=== PATIENT | male | born 1980 | race Caucasian/White ===

== ENCOUNTER 2016-07-18 20:57 | Emergency (ER) | payer MEDICARE ==
[2016-07-18] MEDS ORDERED: NS 0.9% 1000 ML* 1,000 ML IV ONE (21:48)
[2016-07-18 21:49] LABS: Hematocrit 35 % (42-52); Hemoglobin 11.1 g/dl (14.0-18.0); Mean Corpuscular HGB Conc 32 g/dl (31-36); Mean Corpuscular Hemoglobin 22 pg (27-31); Mean Corpuscular Volume 68 fL (80-94); Mean Platelet Volume 9 um3 (7.4-10.4); Red Blood Count 5.08 10^6/ul (4.0-5.4); Red Cell Distribution Width 17 % (10.5-15); White Blood Count 6.9 10^3/ul (3.5-10.8)
[2016-07-18 21:51] LABS: Add Diff/Slide Review? Slide Review Added; Comments Flag Yes
[2016-07-18 22:04] LABS: Albumin 4.2 g/dL (3.2-5.2); Calcium 9.4 mg/dL (8.6-10.3); EGFR African American 140.7 (>60); EGFR Non-African American 109.4 (>60); Globulin 3.2 g/dL (2-4); Potassium 3.8 mmol/L (3.5-5.0); Total Bilirubin 0.3 mg/dL (0.2-1.0); Total Protein 7.4 g/dL (6.4-8.9)
[2016-07-18 22:43] VITALS: BP 123/79
--- NOTE | 2016-07-18 23:02 | ED ---
Mata Fox Rebecca, scribed for Marshall Armas MD on 07/18/16 at 2256 . Complex/Multi-Sys Presentation - HPI Summary HPI Summary: Pt is a 35 y/o M who presents to ED c/o generalized weakness and fatigue. Sx began gradually 3 days ago and have been constant and worsening since onset. Additionally c/o SOB characterized as dyspnea at exertion and suprapubic abd pain with bilateral radiation into the lower extremities. Pain is dull and aggravated and alleviated by nothing. Denies fever, cough, V/D. PMHx anemia ( receives transfusions every 2-3 months). Last transfusion was in [place] in March (4 months ago). Moved to [facility] 4 days ago, does not have a PCP, GI, or wire frame dipper. - History Of Current Complaint Chief Complaint: EDDizziness Time Seen by Provider: 07/18/16 21:14 Hx Obtained From: Patient Onset/Duration: Gradual Onset, Lasting Days - 3 days, Still Present Timing: Constant Severity Currently: Mild Severity Initially: Mild Location: Pain At: - suprapubic, Radiates To: - bilateral LE Character: Dull Aggravating Factor(s): Nothing Alleviating Factor(s): Nothing Associated Signs And Symptoms: Positive: Weakness - generalized, SOB, Other - Fatigue. Negative: Cough, Vomiting, Diarrhea, Fever - Allergies/Home Medications Allergies/Adverse Reactions: Allergies Allergy/AdvReac Type Severity Reaction Status Date / Time Amoxicillin Allergy Rash Verified 07/18/16 21:08 PMH/Surg Hx/FS Hx/Imm Hx Endocrine/Hematology History: Reports: Hx Anemia Cardiovascular History: Reports: Hx Hypertension GI History: Reports: Hx Gastroesophageal Reflux Disease Psychiatric History: Reports: Hx Panic Disorder, Hx Bipolar Disorder - Immunization History Date of Tetanus Vaccine: utd Infectious Disease History: No Infectious Disease History: Denies: Traveled Outside the [place] in Last 30 Days - Family History Known Family History: Positive: Hypertension - Social History Alcohol Use: None Substance Use Type: Reports: None Smoking Status (MU): Never Smoked Tobacco Review of Systems Positive: Fatigue, Other - Generalized weakness. Negative: Fever Positive: Shortness Of Breath - dyspnea at exertion. Negative: Cough Positive: Abdominal Pain - suprapubic with radiation bilaterally to LE. Negative: Vomiting, Diarrhea All Other Systems Reviewed And Are Negative: Yes Physical Exam - Summary Physical Exam Summary: General: Comfortable, pleasant, alert HEENT: Moist mucosa, PERRL Neck: soft, supple, no adenopathy, no edema Heart: S1, S2, RRR, no murmurs, rubs, or gallops Lungs: Clear to auscultation, breathing comfortable, no wheezes or rales Abdominal: Soft, flat, nontender Extremities: No edema, no calf tenderness Neuro: Alert and oriented x 3 Psych: Logical, coherent Triage Information Reviewed: Yes Vital Signs On Initial Exam: Initial Vitals Temp Pulse Resp BP Pulse Ox 97.7 F 99 16 149/84 100 07/18/16 21:00 07/18/16 21:00 07/18/16 21:00 07/18/16 21:00 07/18/16 21:00 Vital Signs Reviewed: Yes - Elif Coma Scale Coma Scale Total: 15 Diagnostics - Vital Signs Vital Signs Temp Pulse Resp BP Pulse Ox 07/18/16 22:30 75 15 123/79 98 07/18/16 22:00 80 11 126/79 96 07/18/16 21:30 88 11 131/82 97 07/18/16 21:22 87 9 98 07/18/16 21:20 123/83 07/18/16 21:00 97.7 F 99 16 149/84 100 - Laboratory Lab Results: Lab Results 07/18/16 07/18/16 Range/Units 21:35 21:35 WBC 6.9 (3.5-10.8) 10^3/ul RBC 5.08 (4.0-5.4) 10^6/ul Hgb 11.1 L (14.0-18.0) g/dl Hct 35 L (42-52) % MCV 68 L (80-94) fL MCH 22 L (27-31) pg MCHC 32 (31-36) g/dl RDW 17 H (10.5-15) % Plt Count 368 (150-450) 10^3/ul MPV 9 (7.4-10.4) um3 Neut % (Auto) 55.7 (38-83) % Lymph % (Auto) 33.9 (25-47) % [place] % (Auto) 7.0 (1-9) % Eos % (Auto) 1.3 (0-6) % Baso % (Auto) 2.1 H (0-2) % Absolute Neuts (auto) 3.8 (1.5-7.7) 10^3/ul Absolute Lymphs (auto) 2.3 (1.0-4.8) 10^3/ul Absolute Monos (auto) 0.5 (0-0.8) 10^3/ul Absolute Eos (auto) 0.1 (0-0.6) 10^3/ul Absolute Basos (auto) 0.1 (0-0.2) 10^3/ul Absolute Nucleated RBC 0 10^3/ul Nucleated RBC % 0 Hem Pathologist Commnt Pending Sodium 138 (133-145) mmol/L Potassium 3.8 (3.5-5.0) mmol/L Chloride 105 (101-111) mmol/L Carbon Dioxide 26 (22-32) mmol/L Anion Gap 7 (2-11) mmol/L BUN 12 (6-24) mg/dL Creatinine 0.80 (0.67-1.17) mg/dL Est GFR ( Amer) 140.7 (>60) Est GFR (Non-Af Amer) 109.4 (>60) BUN/Creatinine Ratio 15.0 (8-20) Glucose 94 (70-100) mg/dL Calcium 9.4 (8.6-10.3) mg/dL Total Bilirubin 0.30 (0.2-1.0) mg/dL AST 9 L (13-39) U/L ALT 9 (7-52) U/L Alkaline Phosphatase 65 (34-104) U/L Total Protein 7.4 (6.4-8.9) g/dL Albumin 4.2 (3.2-5.2) g/dL Globulin 3.2 (2-4) g/dL Albumin/Globulin Ratio 1.3 (1-3) Result Diagrams: 07/18/16 21:35 07/18/16 21:35 Lab Statement: Any lab studies that have been ordered have been reviewed, and results considered in the medical decision making process. - EKG 2107 Cardiac Rate: NL - 90 bpm EKG Rhythm: Sinus Rhythm ST Segment: Normal Complex Multi-Symp Course/Dx Assessment/Plan: Hx of anemia. Essentially here to be checked for anemia again. He did have GI care at one point, they were worried about upper GI bleed. Today , displaying no signs or sx of that. He also has stable vitals upon my exam. His H&H is acceptable at . Most important thing we can do in this case is arrange for follow up. We will refer him to the referral center. Weve also considered sepsis and severe infection but there is no evidence of that as well. Viral illness is also a possibility. - Diagnoses Differential Diagnoses/HQI/PQRI: Cardiac Ischemia, Metabolic Abnormality, Sepsis , Urinary Tract Infection Provider Diagnoses: Weakness Discharge - Discharge Plan Condition: Good Disposition: HOME Patient Education Materials: Weakness (ED) Referrals: [facility] [facility] REFERRAL [Outside] The documentation as recorded by the Mata rucker Rebecca accurately reflects the service I personally performed and the decisions made by me, Marshall Armas MD.
== END 2016-07-18 23:00 | disposition home or self-care (01) ==
LOC: ED 20:57
DX: R53.1 Weakness (principal); R06.02 Shortness of breath; R53.83 Other fatigue; R10.9 Unspecified abdominal pain
CPT/HCPCS: 36415; 80053; 85025; 85060; 86703; 93005; 99282

== ENCOUNTER 2016-07-26 14:49 | Emergency (ER) | payer MEDICARE ==
[2016-07-26 15:40] VITALS: BP 159/85
[2016-07-26] MEDS ORDERED: Cyclobenzaprine TAB* 10 MG PO ONE (16:15)
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
== END 2016-07-26 16:31 | disposition home or self-care (01) ==
LOC: UCEAST 14:49
DX: S39.012A Strain of muscle, fascia and tendon of lower back, initial encounter (principal); W01.0XXA Fall on same level from slipping, tripping and stumbling without subsequent striking against object, initial encounter; Y93.02 Activity, running; Y92.828 Other wilderness area as the place of occurrence of the external cause; Z87.442 Personal history of urinary calculi; Z88.0 Allergy status to penicillin
CPT/HCPCS: 99212; A9270-GY; G0463

== ENCOUNTER 2016-08-11 15:52 | Emergency (ER) | payer MEDICARE ==
[2016-08-11 16:16] VITALS: BP 155/90
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
== END 2016-08-11 17:08 | disposition home or self-care (01) ==
LOC: UCEAST 15:52
DX: S39.012A Strain of muscle, fascia and tendon of lower back, initial encounter (principal); W19.XXXA Unspecified fall, initial encounter; Y93.23 Activity, snow (alpine) (downhill) skiing, snowboarding, sledding, tobogganing and snow tubing; Y92.9 Unspecified place or not applicable; Z88.1 Allergy status to other antibiotic agents; Z87.891 Personal history of nicotine dependence
CPT/HCPCS: 99212; G0463

== ENCOUNTER 2016-09-23 15:44 | Emergency (ER) | payer MEDICARE ==
[2016-09-23 15:57] VITALS: BP 139/93
--- NOTE | 2016-09-23 16:33 | UC ---
Knee Pain HPI - HPI Summary HPI Summary: The patient comes in today for: 1. Left knee pain: Onset: Yesterday. Palliative/provocative: Bending the knee makes it worse. He can bend it to 90 degrees. Quality: Dull ache at rest. With bending and with squatting down--sharp. Region: Left knee Severity: 6/10 at rest. Time: Constant. Associated symptoms: Event: He was stepping up on a deck from a lower step turning to this left. There was a sudden onset of pain. About this time, he fell off the deck. He got back up and started walking around. He felt OK walking around. Every time he would squat down, it hurt so bad, he had to grab the ground. He felt at times like that, that he did not have any strength in it. He states that there is a catching with movement. He did not strike his knee during the fall. Previous knee problems: None. Previous treatment: Tylenol. Disability: For agoraphobia and panic attacks. Patient states that he can't take NSAIDS due to him having severe and frequent esophageal bleeding. He states that he had to have 14 transfusions and he is supposed to see a barrel filler head in the near future. He drove to be seen here. * - History of Current Complaint Chief Complaint: UCLowerExtremity Stated Complaint: KNEE INJURY Time Seen by Provider: 09/23/16 16:25 Hx Obtained From: Patient - Allergies/Home Medications Allergies/Adverse Reactions: Allergies Allergy/AdvReac Type Severity Reaction Status Date / Time Amoxicillin Allergy Rash Verified 09/23/16 15:58 Home Medications: Home Medications Metoprolol Succinate XL TAB* [Toprol XL TAB*] 50 mg PO DAILY 09/23/16 [History Confirmed 09/23/16] PMH/Surg Hx/FS Hx/Imm Hx Previously Healthy: No - Esophageal bleeding. Endocrine History Of: Denies: Diabetes, Thyroid Disease, Hyperthyroidism, Hypothyroidism, Dyslipidemia Cardiovascular History Of: Reports: Hypertension Denies: Cardiac Disorders, Pacemaker/ICD, Myocardial Infarction, Congestive Heart Failure, Atrial Fibrillation, Deep Vein Thrombosis, Bleeding Disorders Respiratory History Of: Denies: COPD, Asthma - He states that he is on Toprol for his blood pressure. , Bronchitis, Pneumonia, Pulmonary Embolism GI/ History Of: Reports: Gastroesophageal Reflux, Ulcer - gi bleed, Gastrointestinal Bleed - He states that he has had esophageal bleeding from reflux., Kidney Stones Neurological History Of: Denies: TIA, CVA, Dementia, Seizures, Migraine Psychological History Of: Reports: Anxiety, Depression, Bipolar Disorder Cancer History Of: Denies: Lung Cancer, Colorectal Cancer, Breast Cancer, Prostate Cancer, Cervical Cancer Other History Of: Negative For: HIV, Hepatitis B, Hepatitis C, Anticoagulant Therapy - Surgical History Surgical History: Yes Surgery Procedure, Year, and Place: stent placement for kidney stones X2 - Family History Known Family History: Positive: Cardiac Disease, Hypertension Negative: Diabetes - Social History Occupation: Disabled - From anxiety /depression Lives: With Family Alcohol Use: None Substance Use Type: None Smoking Status (MU): Former Smoker Review of Systems Constitutional: Negative Skin: Negative Eyes: Negative ENT: Negative Respiratory: Negative Cardiovascular: Negative Gastrointestinal: Negative Genitourinary: Negative Musculoskeletal: Arthralgia, Myalgia All Other Systems Reviewed And Are Negative: Yes Physical Exam Triage Information Reviewed: Yes Appearance: Well-Nourished, Pain Distress - He has altered breathing--holding breaths and sighing at times. He holds his left leg straight. Vital Signs: Initial Vital Signs Temp 98.2 F 09/23/16 15:53 Pulse 74 09/23/16 15:53 Resp 18 09/23/16 15:53 BP 139/93 09/23/16 15:53 Pulse Ox 100 09/23/16 15:53 Vital Signs Reviewed: Yes Eyes: Positive: Conjunctiva Clear. Negative: Discharge ENT: Positive: Hearing grossly normal. Negative: Pharyngeal erythema, Nasal congestion, Nasal drainage, TM bulging, TM dull, TM red, Tonsillar swelling, Tonsillar exudate Dental: Negative: Gross Decay/Caries @, Dental Fracture @ Neck: Positive: Supple, Nontender, No Lymphadenopathy. Negative: Nuchal Rigidity Respiratory: Positive: Chest non-tender, Lungs clear, No respiratory distress, No accessory muscle use. Negative: Crackles, Wheezing Cardiovascular: Positive: RRR, No Murmur Abdomen Description: Positive: Nontender, No Organomegaly, Soft. Negative: Distended, Guarding Musculoskeletal: Positive: No Edema, ROM Limited @ - He is only able to flex his left knee to 90 degrees. He can fully extend it., Other: Neurological: Positive: Alert, Muscle Tone Normal Psychological: Positive: Age Appropriate Behavior, Consolable Skin: Negative: rashes, breakdown Diagnostics - Radiology No standard instances Xray Interpretation: No Acute Changes Radiology Interpretation Completed By: Radiologist Knee Pain Course/Dx - Course Course Of Treatment: Left knee pain, internal derangement--torn meniscus? - Differential Dx/Diagnosis Provider Diagnoses: Left knee pain, internal derangement--torn meniscus. Discharge - Discharge Plan Condition: Stable Disposition: HOME Patient Education Materials: Knee Pain (ED) Referrals: Jose Griffin MD [Primary Care Provider] - Erich Montoya MD [Medical Doctor] - As Soon As Possible (Please call the orthopedic surgeon as soon as you can for further evaluation and treatment)
--- NOTE | 2016-09-23 17:32 | RAD ---
HISTORY: Left knee pain after fall COMPARISONS: None VIEWS: 4, Frontal, lateral, axial, and oblique views of the left knee FINDINGS: BONE DENSITY: Normal. BONES: There is no displaced fracture. JOINTS: There is no arthropathy. There is no suprapatellar joint effusion or lipohemarthrosis. ALIGNMENT: There is no dislocation. SOFT TISSUES: Unremarkable. OTHER FINDINGS: None. IMPRESSION: NO ACUTE OSSEOUS INJURY. IF SYMPTOMS PERSIST, RECOMMEND REPEAT IMAGING.
== END 2016-09-23 17:55 | disposition home or self-care (01) ==
LOC: UCEAST 15:44
DX: M23.307 Other meniscus derangements, unspecified meniscus, left knee (principal); M25.562 Pain in left knee; Z88.3 Allergy status to other anti-infective agents; Z87.891 Personal history of nicotine dependence
CPT/HCPCS: 99212; G0463

== ENCOUNTER 2016-11-28 16:42 | Emergency (ER) | payer MEDICARE ==
[2016-11-28 16:49] VITALS: BP 122/75
--- NOTE | 2016-11-28 19:55 | UC ---
Throat Pain/Nasal Timothy HPI - HPI Summary HPI Summary: FOUR DAYS OF NASAL DRAINAGE SORE THROAT COUGH. YELLOW SPUTUM. LOW GRADE FEVER. - History of Current Complaint Chief Complaint: UCRespiratory Stated Complaint: COUGH Time Seen by Provider: 11/28/16 18:54 Hx Obtained From: Patient Onset/Duration: Gradual Onset, Lasting Days, Worse Since - DILY Severity: Moderate Pain Intensity: 2 Pain Scale Used: 0-10 Numeric Cough: Productive Associated Signs & Symptoms: Positive: Hoarseness, Sinus Discomfort, Nasal Discharge, Fever - Epiglottits Risk Factors Epiglottis Risk Factors: Negative - Allergies/Home Medications Allergies/Adverse Reactions: Allergies Allergy/AdvReac Type Severity Reaction Status Date / Time Amoxicillin Allergy Rash Verified 09/23/16 15:58 PMH/Surg Hx/FS Hx/Imm Hx Previously Healthy: Yes Other History Of: Negative For: HIV, Hepatitis B, Hepatitis C, Anticoagulant Therapy - Surgical History Surgical History: Yes Surgery Procedure, Year, and Place: stent placement for kidney stones X2 - Family History Known Family History: Positive: Cardiac Disease, Hypertension Negative: Diabetes - Social History Occupation: Employed Full-time Lives: With Family Alcohol Use: None Substance Use Type: None Smoking Status (MU): Former Smoker Review of Systems Constitutional: Fever, Chills Skin: Negative Eyes: Negative ENT: Sore Throat, Nasal Discharge Respiratory: Cough Cardiovascular: Negative Gastrointestinal: Negative Genitourinary: Negative Motor: Negative Neurovascular: Negative Musculoskeletal: Negative Neurological: Negative Psychological: Negative All Other Systems Reviewed And Are Negative: Yes Physical Exam Triage Information Reviewed: Yes Appearance: No Pain Distress, Well-Nourished, Ill-Appearing Vital Signs: Initial Vital Signs Temp 99.3 F 11/28/16 16:46 Pulse 75 11/28/16 16:46 Resp 18 11/28/16 16:46 BP 122/75 11/28/16 16:46 Pulse Ox 99 11/28/16 16:46 Vital Signs Reviewed: Yes Eye Exam: Normal ENT: Positive: Hearing grossly normal, Pharynx normal, Nasal congestion, TM bulging, TM dull Dental Exam: Normal Neck exam: Normal Neck: Positive: Supple, Nontender, No Lymphadenopathy Respiratory Exam: Other - COUGH Respiratory: Positive: Chest non-tender, Lungs clear, Normal breath sounds, No respiratory distress, No accessory muscle use Cardiovascular Exam: Normal Cardiovascular: Positive: RRR, No Murmur, Pulses Normal Abdominal Exam: Normal Musculoskeletal Exam: Normal Musculoskeletal: Positive: Strength Intact, ROM Intact Neurological Exam: Normal Psychological Exam: Normal Psychological: Positive: Normal Response To Family Skin Exam: Normal Throat Pain/Nasal Course/Dx - Differential Dx/Diagnosis Differential Diagnosis/HQI/PQRI: Influenza, Sinusitis, Tonsillitis, URI Provider Diagnoses: SINUSITIS Discharge - Discharge Plan Condition: Stable Disposition: HOME Prescriptions: Sulfamethox/Trimethoprim DS* [Bactrim DS 800/160 TAB*] 1 tab PO BID #20 tab Patient Education Materials: Sinusitis (ED) Ref[place]: [facility] [place]] Jose Griffin MD [Primary Care Provider] -
== END 2016-11-28 19:27 | disposition home or self-care (01) ==
LOC: UCEAST 16:42
DX: J32.9 Chronic sinusitis, unspecified (principal); Z87.891 Personal history of nicotine dependence
CPT/HCPCS: 99212; G0463

== ENCOUNTER 2016-12-24 23:44 | Emergency (ER) | payer MEDICARE ==
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
[2016-12-25] MEDS ORDERED: diPHENhydraMINE IV* 50 MG/ML 1 ml VIAL (BENADRYL) ONE (00:18)
[2016-12-25] MEDS ORDERED: LORazepam INJ* 2 MG/ML 1 ML VIAL ONE (00:18)
[2016-12-25] MEDS ORDERED: Haloperidol INJ IV/IM* 5 MG/ML AMP ONE (00:18)
[2016-12-25] MEDS ORDERED: LORazepam INJ* 2 MG/ML 1 ML VIAL IM ONE (00:33)
[2016-12-25] MEDS ORDERED: diPHENhydraMINE IV* 50 MG/ML 1 ml VIAL (BENADRYL) IM ONE (00:34)
[2016-12-25] MEDS ORDERED: Haloperidol INJ IV/IM* 5 MG/ML AMP IM ONE (00:34)
[2016-12-25 00:44] LABS: Hematocrit 43 % (42-52); Hemoglobin 14.5 g/dl (14.0-18.0); Mean Corpuscular HGB Conc 34 g/dl (31-36); Mean Corpuscular Hemoglobin 27 pg (27-31); Mean Corpuscular Volume 80 fL (80-94); Mean Platelet Volume 8 um3 (7.4-10.4); Red Blood Count 5.36 10^6/ul (4.0-5.4); Red Cell Distribution Width 14 % (10.5-15); White Blood Count 6.9 10^3/ul (3.5-10.8)
[2016-12-25 00:56] LABS: Acetaminophen < 15 mcg/mL; Alcohol 213 mg/dL (<10); Salicylate < 2.50 mg/dL (<30)
[2016-12-25 00:57] LABS: ALT 20 U/L (7-52); AST 20 U/L (13-39); Albumin 4.4 g/dL (3.2-5.2); Alkaline Phosphatase 74 U/L (34-104); Anion Gap 13 mmol/L (2-11); BUN/Creatinine Ratio 6.3 (8-20); Blood Urea Nitrogen 5 mg/dL (6-24); CO2 Carbon Dioxide 21 mmol/L (22-32); Calcium 9.2 mg/dL (8.6-10.3); Chloride 105 mmol/L (101-111); EGFR African American 141.9 (>60); EGFR Non-African American 110.4 (>60); Globulin 3.7 g/dL (2-4); Glucose 110 mg/dL (70-100); Potassium 3.3 mmol/L (3.5-5.0); Sodium 139 mmol/L (133-145); Total Protein 8.1 g/dL (6.4-8.9)
[2016-12-25 01:08] LABS: TSH (Thyroid Stimulating Horm) 0.86 mcIU/mL (0.34-5.60)
[2016-12-25 06:07] VITALS: BP 114/65
== END 2016-12-25 06:10 | disposition home or self-care (01) ==
LOC: ED 23:44
DX: F19.10 Other psychoactive substance abuse, uncomplicated (principal); Z87.891 Personal history of nicotine dependence
CPT/HCPCS: 36415; 80053; 80320; 80329; 84443; 85025; 96374; 96375; 99285; G0480; J1200; J1630; J2060

== ENCOUNTER 2016-12-25 16:58 | Inpatient (IN) | payer MEDICARE ==
--- NOTE | 2016-12-25 17:33 | ED ---
Psychiatric Complaint - HPI Summary HPI Summary: Patient presents with SI to the ED after stating he "lost everything" last night. Hx of depression and anxiety. Takes medications through Dr. Griffin. Hx of suicidal ideations but no HI. Denies self harm. He has been in 5 mental health facilities over the past year. He states he is currently very depressed and most likely will commit suicide upon discharge, but doesn't know for sure. PMHx significant for BP, depression, anxiety. Denies physical complaints at this time. - History Of Current Complaint Chief Complaint: EDMentalHealth Time Seen by Provider: 12/25/16 17:07 Hx Obtained From: Patient Onset/Duration: Gradual Onset Timing: Weeks Severity Initially: Severe Severity Currently: Severe Character: Depressed, Anxious, Angry, Frustrated Aggravating Factor(s): Recent Stress Alleviating Factor(s): Nothing Associated Signs And Symptoms: Positive: Negative Has Suicidal: Reports: With A Plan - Risk Factor(s) Completed Suicide Risk Factors: Male, White Polish - Allergies/Home Medications Allergies/Adverse Reactions: Allergies Allergy/AdvReac Type Severity Reaction Status Date / Time Amoxicillin Allergy Rash Verified 12/25/16 17:03 PMH/Surg Hx/FS Hx/Imm Hx Previously Healthy: Yes Endocrine/Hematology History: Reports: Hx Anemia Denies: Hx Anticoagulant Therapy, Hx Diabetes, Hx Thyroid Disease Cardiovascular History: Reports: Hx Hypertension Denies: Hx Congestive Heart Failure, Hx Deep Vein Thrombosis, Hx Myocardial Infarction, Hx Pacemaker/ICD Respiratory History: Denies: Hx Asthma - He states that he is on Toprol for his blood pressure., Hx Chronic Obstructive Pulmonary Disease (COPD), Hx Lung Cancer, Hx Pneumonia, Hx Pulmonary Embolism GI History: Reports: Hx Gastroesophageal Reflux Disease, Hx Gastrointestinal Bleed - He states that he has had esophageal bleeding from reflux., Hx Ulcer - gi bleed History: Reports: Hx Kidney Stones Neurological History: Denies: Hx Dementia, Hx Migraine, Hx Seizures, Hx Transient Ischemic Attacks (TIA) Psychiatric History: Reports: Hx Anxiety, Hx Depression, Hx Panic Disorder, Hx Bipolar Disorder - Surgical History Surgery Procedure, Year, and Place: stent placement for kidney stones X2 - Immunization History Date of Tetanus Vaccine: utd Hx Pertussis Vaccination: No Immunizations Up to Date: Unable to Obtain/Confirm Infectious Disease History: No Infectious Disease History: Denies: Traveled Outside the [place] in Last 30 Days - Family History Known Family History: Positive: Cardiac Disease, Hypertension Negative: Diabetes - Social History Occupation: Unemployed Lives: With Family Alcohol Use: None Hx Substance Use: No Substance Use Type: Reports: None Smoking Status (MU): Former Smoker Review of Systems Constitutional: Negative Eyes: Negative Cardiovascular: Negative Respiratory: Negative Positive: no symptoms reported, pain Musculoskeletal: Negative Skin: Negative Neurological: Negative Positive: Anxious, Depressed All Other Systems Reviewed And Are Negative: Yes Physical Exam Triage Information Reviewed: Yes Vital Signs On Initial Exam: Initial Vitals Temp Pulse Resp BP Pulse Ox 98.1 F 93 16 150/96 96 12/25/16 17:11 12/25/16 17:11 12/25/16 17:11 12/25/16 17:11 12/25/16 17:11 Vital Signs Reviewed: Yes Appearance: Positive: Well-Appearing, No Pain Distress, Well-Nourished Skin: Positive: Warm, Skin Color Reflects Adequate Perfusion Head/Face: Positive: Normal Head/Face Inspection Eyes: Positive: EOMI, ABIGAIL, Conjunctiva Clear Respiratory/Lung Sounds: Positive: Clear to Auscultation, Breath Sounds Present Cardiovascular: Positive: Normal, RRR, Pulses are Symmetrical in both Upper and Lower Extremities Musculoskeletal: Positive: Normal, Strength/ROM Intact Neurological: Positive: Normal, Sensory/Motor Intact, Alert, Oriented to Person Place, Time, Speech Normal Psychiatric: Positive: Anxious, Depressed AVPU Assessment: Alert - Dodge Coma Scale Best Eye Response: 4 - Spontaneous Best Motor Response: 6 - Obeys Commands Best Verbal Response: 5 - Oriented Coma Scale Total: 15 Diagnostics - Vital Signs Vital Signs Temp Pulse Resp BP Pulse Ox 12/25/16 17:11 98.1 F 93 16 150/96 96 - Laboratory Result Diagrams: 12/25/16 17:29 12/25/16 17:29 Lab Statement: Any lab studies that have been ordered have been reviewed, and results considered in the medical decision making process. Course/Dx - Course Course Of Treatment: Patient ready for evaluation of MHU. - Differential Dx/Clinical Impression Differential Diagnosis/HQI/PQRI: Positive: Suicide Attempt, Suicidal Ideation, Suicidal Gesture Provider Diagnosis: Suicidal ideation Discharge - Discharge Plan Condition: Stable Disposition: OTHER Discharge Disposition Comment: Signed out to DORI Monterroso at 7pm. Cleared for MHU at 6:20p
[2016-12-25 17:57] LABS: Hematocrit 42 % (42-52); Hemoglobin 13.8 g/dl (14.0-18.0); Mean Corpuscular HGB Conc 33 g/dl (31-36); Mean Corpuscular Hemoglobin 27 pg (27-31); Mean Corpuscular Volume 81 fL (80-94); Mean Platelet Volume 8 um3 (7.4-10.4); Red Blood Count 5.15 10^6/ul (4.0-5.4); Red Cell Distribution Width 15 % (10.5-15); White Blood Count 11.9 10^3/ul (3.5-10.8)
[2016-12-25 18:01] LABS: Urine Bilirubin Negative (Negative); Urine Glucose Negative (Negative); Urine Nitrite Negative (Negative)
[2016-12-25 18:08] LABS: ALT 24 U/L (7-52); AST 38 U/L (13-39); Albumin 4.3 g/dL (3.2-5.2); Alkaline Phosphatase 70 U/L (34-104); Anion Gap 9 mmol/L (2-11); BUN/Creatinine Ratio 9.6 (8-20); Blood Urea Nitrogen 8 mg/dL (6-24); CO2 Carbon Dioxide 26 mmol/L (22-32); Calcium 9.3 mg/dL (8.6-10.3); Chloride 99 mmol/L (101-111); EGFR African American 134.1 (>60); EGFR Non-African American 104.3 (>60); Globulin 3.5 g/dL (2-4); Glucose 92 mg/dL (70-100); Potassium 3.7 mmol/L (3.5-5.0); Sodium 134 mmol/L (133-145); Total Protein 7.8 g/dL (6.4-8.9)
[2016-12-25 18:13] LABS: Benzodiazepine Urine Screen Presumptive Positive (None Detect)
[2016-12-25 18:18] LABS: Acetaminophen < 15 mcg/mL; Alcohol < 10 mg/dL (<10); Salicylate < 2.50 mg/dL (<30)
[2016-12-25 18:27] LABS: TSH (Thyroid Stimulating Horm) 1.36 mcIU/mL (0.34-5.60)
[2016-12-25] MEDS ORDERED: Al Hydrox/Mg Hydrox/Simet LIQ* 30 ML UDC PO PRN (21:39)
[2016-12-25] MEDS: Acetaminophen TAB* 325 MG PO PRN (22:19)
[2016-12-25] MEDS: Gabapentin CAP(*) 300 MG PO SCH (22:19)
[2016-12-25] MEDS: clonazePAM TAB(*) 1 MG PO PRN (22:20)
[2016-12-26 07:52] VITALS: BP 129/78
[2016-12-26] MEDS: PARoxetine HCL TAB* 40 MG PO SCH (10:13)
[2016-12-26] MEDS: Vitamin THERAPEUTIC TAB PO SCH (10:13)
[2016-12-26] MEDS: Gabapentin CAP(*) 300 MG PO SCH ×3 (10:14→21:44)
[2016-12-26] MEDS: Metoprolol Succinate XL TAB* 50 MG PO SCH (10:14)
[2016-12-26] MEDS: Omeprazole CAP* 20 MG PO SCH (10:14)
[2016-12-26] MEDS: clonazePAM TAB(*) 1 MG PO PRN ×2 (10:16→21:44)
[2016-12-26] MEDS: Acetaminophen TAB* 325 MG PO PRN (14:27)
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
[2016-12-26] MEDS ORDERED: QUEtiapine XR TAB* 300 MG PO SCH (21:00)
[2016-12-27] MEDS: Omeprazole CAP* 20 MG PO SCH (10:07)
[2016-12-27] MEDS: Metoprolol Succinate XL TAB* 50 MG PO SCH (10:08)
[2016-12-27] MEDS: Gabapentin CAP(*) 300 MG PO SCH (10:08)
[2016-12-27] MEDS: Vitamin THERAPEUTIC TAB PO SCH (10:08)
[2016-12-27] MEDS: PARoxetine HCL TAB* 40 MG PO SCH (10:08)
[2016-12-27] MEDS: Acetaminophen TAB* 325 MG PO PRN (10:11)
[2016-12-27] MEDS: clonazePAM TAB(*) 1 MG PO PRN (10:11)
--- NOTE | 2016-12-28 11:10 | DS ---
DISCHARGE SUMMARY: DATE OF ADMISSION: 12/25/16 DATE OF DISCHARGE: 12/27/16 ATTENDING PHYSICIAN: Dr. Lozada* (dictated by Loyda Barraza NP). DIAGNOSES UPON DISCHARGE: Rochester I: Panic disorder, severe, generalized anxiety disorder, rule out bipolar II disorder, alcohol use disorder. [place] II: Consider antisocial traits. [place] III: GERD, esophageal bleed by history, kidney stones by history, anemia by history. [place] IV: Severe psychosocial stressors related to new onset of homelessness, relationship strains, CPS involvement, financial strain. Rochester V: 40. CONDITION AT THE TIME OF DISCHARGE: Improved. MENTAL STATUS EXAM: Royal was adequately groomed, cooperative, and in behavioral control. He was a moderate framed white male, appeared stated age, wearing hospital scrubs and glasses. Alert and oriented x3. Eye contact was good. Affect was appropriate. Speech was soft and normal rate and rhythm. He described his mood as anxious. He reports this is in regards to not knowing where he was going to be living and he states that he was feeling a lot worse yesterday. He reports that he went to sleep well. Royal reports improvement in anxiety, in that he was not having panic attacks and reports that current medications were showing some improvement. Royal endorses depressed mood and guilt in regards to recent events. He states that he wants to be a better person. He wants to be able to see his children and he is motivated to refrain from alcohol use due to consequences involved when he drinks alcohol. He reports that he wants help and denies active suicidal ideation. He denies AH or VH and denies periods of psychotic thinking. Instructions given to the client includes the current medication regimen, which was unchanged from his outpatient regimen except for the addition of Seroquel XR 300 mg p.o. q. evening. MEDICATIONS: Include: 1. Clonazepam 1 mg p.o. t.i.d. p.r.n. anxiety. 2. Gabapentin 600 mg p.o. t.i.d. 3. Metoprolol XL 50 mg p.o. q.a.m. 4. Omeprazole 40 mg p.o. q.a.m. 5. Paroxetine 40 mg p.o. q.a.m. 6. Quetiapine XR 300 mg p.o. q.h.s. DIET: Regular. ACTIVITY: As tolerated. Client is a nonsmoker therefore tobacco cessation is not applicable. There were no pending labs or diagnostic studies at the time of discharge. HOSPITAL COURSE: Royal was brought in by police after presenting to [facility] with suicidal ideation with a plan. In the past week he had a legal and CPS involvement in regards to his actions while intoxicated with alcohol. He presented to [facility] after being removed from his home by police. He had been living with his girlfriend Germaine and he was aggressive to her in front of her 10-year-old and a 3-year-old, an order of protection was placed per police suggestion; therefore, patient was not able to live there any longer. He recently relocated to this area in July of this year, prior to this he had been living in [place] where he grew up. Patient has a history of psychiatric hospitalizations in [place] and history of anxiety with agoraphobia. He also has a history of legal involvement in the state of [place], but he did not elaborate on these. PSYCHIATRIC TREATMENT RENDERED: Royal presented to the emergency department under mental hygiene law and was admitted on voluntary basis to the adult mental health unit. He was placed on 15-minute checks for safety and observation and encouraged to participate in therapeutic milieu, individual and group therapy. He was pleasant and cooperative on the unit, mildly isolative but participated in groups. He was pleasant with staff and cordial with peers. He was not allowed to have his girlfriend visit or call due to the order of protection in place and he stated understanding of that. He also expressed remorse and desire to amend the actions taken in the past week. Royal was agreeable to initiate a mood stabilizer, quetiapine XR. He reports that he had been taking this medication previously but could not recall if it was XR or IR. We discussed the benefits of an extended release in regards to sedation effect and use for mood stabilization. Royal was persistent in continuing both the Paxil and Klonopin and cited past trials of being discontinued from these. He states that he struggled with functioning and homelessness when not being prescribed Klonopin. While on the unit, he was noted to have an improvement in presentation. He states that he was able to sleep better and denied overly sedating effect from quetiapine. He reports improvement in anxiety, in that he was not having panic attacks. He reported mild improvement in depression. Denied active suicidal ideation. He endorsed that his primary concern was housing and obtaining employment. While on the unit staff was notified that he had a warrant out for his arrest due to felony charges and he will be expected to be arraigned and tried in court. When notified of this Royal stated understanding and was cooperative with the plan to be discharged to [place] [employer]. This policy writer received a phone call from his significant other Germaine, she expressed concern that he has not been stable on current medications. This policy writer discussed the use of quetiapine XR as a mood stabilizer, she was reassured that he is not actively suicidal and has presented as calm and cooperative on the unit and he is not in immediate need of hospitalization at this time. He also has outpatient followup at [facility], which he agrees to pursue. Germaine requested to be able to speak with him over the phone and this policy writer declined, due to the order of protection in place. Royal was discharged to the care of [facility] and police officers were given discharge instructions by nursing staff; this policy writer was present in the hallway. Royal was pleasant and cooperative with the process. He states understanding of plan to be transported to court and likely being sentenced to either long term or being dismissed from custody. LOYDA BARRAZA NP [id number]/CPS #: [id number] ALEX
== END 2016-12-27 13:30 | DRG 880 ==
LOC: ED 16:58 → BSU 21:31
PROVIDERS: ADMIT Psychiatry & Neurology Psychiatry; ATTEND Psychiatry & Neurology Psychiatry
DX: F41.0 Panic disorder [episodic paroxysmal anxiety] (principal); R45.851 Suicidal ideations; I10 Essential (primary) hypertension; Z88.0 Allergy status to penicillin; Z87.442 Personal history of urinary calculi; Z56.0 Unemployment, unspecified; Z82.49 Family history of ischemic heart disease and other diseases of the circulatory system; Z87.891 Personal history of nicotine dependence; R40.2362 Coma scale, best motor response, obeys commands, at arrival to emergency department; R40.2142 Coma scale, eyes open, spontaneous, at arrival to emergency department; R40.2252 Coma scale, best verbal response, oriented, at arrival to emergency department; Z59.0 Homelessness; Z72.89 Other problems related to lifestyle; Z81.8 Family history of other mental and behavioral disorders; K21.9 Gastro-esophageal reflux disease without esophagitis; F41.1 Generalized anxiety disorder; F31.81 Bipolar II disorder
CPT/HCPCS: 36415; 80053; 80307; 80320; 80329; 81003; 84443; 85025; 96374; 96375; 99222; 99238; 99285; A9270-GY; G0480; J1200; J1630; J2060

== ENCOUNTER 2017-05-29 12:48 | Emergency (ER) | payer MEDICARE, OTHER ==
--- NOTE | 2017-05-29 15:28 | UC ---
Rosey Fox Thomas, scribed for Yakelin Domínguez MD on 05/29/17 at 1507 . General HPI - HPI Summary HPI Summary: The patient is a 36 year old male presenting to Urgent Care because has run out of his Gabapentin, Lopressor, Klonopin, and Seroquel four days ago and has been unable to refill them. He has been incarcerated for the last five months and he was discharged 7 days ago. He says there are currently scripts waiting for him at [facility] to be filled that were sent by the correctional facility. The patient says that he is on Medicare due to disability and that he is cannot afford to refill his prescriptions. (can't afford copayment) The patient reports panic disorder, agoraphobia, and Bipolar disorder. He recently missed an appointment with [facility] due to his panic disorder. His next appointment with Dr. Souza is in one month. Patient denies fevers, chills, nausea, vomiting, diarrhea, suicidal ideation, and homicidal ideation. The patient is accompanied by his girlfriend, who provides some history. Patients medication reviewed this visit. - History of Current Complaint Chief Complaint: UCGeneralIllness Stated Complaint: PANIC ATTACKS Time Seen by Provider: 05/29/17 14:55 Hx Obtained From: Patient Onset/Duration: Lasting Days - 4, Still Present Timing: Constant Current Severity: Moderate Aggravating: Missed appointment a few days ago Associated Signs & Symptoms: Positive: Other - In need of medication refill; NEGATIVE: fevers, chills, nausea, vomiting, diarrhea, suicidal ideation, and homicidal ideation - Allergy/Home Medications Allergies/Adverse Reactions: Allergies Allergy/AdvReac Type Severity Reaction Status Date / Time Amoxicillin Allergy Rash Verified 05/29/17 12:58 PMH/Surg Hx/FS Hx/Imm Hx Previously Healthy: No - NEGATIVE: DM Other Psychological History: Agoraphobia, Panic disorder, Bipolar disorder Other History Of: Negative For: HIV, Hepatitis B, Hepatitis C, Anticoagulant Therapy - Surgical History Surgical History: Yes Surgery Procedure, Year, and Place: stent placement for kidney stones X2 - Family History Known Family History: Positive: Cardiac Disease, Hypertension Negative: Diabetes - Social History Alcohol Use: Rare Substance Use Type: None Smoking Status (MU): Never Smoked Tobacco Have You Smoked in the Last Year: No - Immunization History Most Recent Influenza Vaccination: unknown Most Recent Pneumonia Vaccination: unknown Review of Systems Constitutional: Other - In need of medication refill Psychological: Other - NEGATIVE: suicidal ideation, homicidal ideation Is Patient Immunocompromised?: No All Other Systems Reviewed And Are Negative: Yes Physical Exam Triage Information Reviewed: Yes Appearance: Well-Appearing, No Pain Distress, Well-Nourished Vital Signs: Initial Vital Signs Temp 98 F 05/29/17 13:00 Pulse 123 05/29/17 13:00 Resp 20 05/29/17 13:00 BP 137/92 05/29/17 13:00 Pulse Ox 100 05/29/17 13:00 Eye Exam: Normal Eyes: Positive: Conjunctiva Clear ENT Exam: Normal Dental Exam: Normal Neck exam: Normal Neck: Positive: Supple, Nontender Respiratory Exam: Normal Respiratory: Positive: Chest non-tender, Lungs clear, Normal breath sounds, No respiratory distress Cardiovascular Exam: Normal Cardiovascular: Positive: RRR, No Murmur Abdominal Exam: Normal Abdomen Description: Positive: Nontender, No Organomegaly, Soft Musculoskeletal Exam: Normal Neurological Exam: Normal Neurological: Positive: Alert Psychological Exam: Normal Psychological: Positive: Normal Response To Family Skin Exam: Normal Course/Dx - Course Course Of Treatment: Blood pressure noted and patient informed of follow up with PCP. [facility] - confirmed prescriptions are there - total copays $25. Spoke to hospital SW - if pt in ED, could get 5 day supply from hosptal pharmacy - not from . [facility]. Spoke with pharmacy at hospital - confirmed unable to get from but prob if ED patient. [facility] - made appt for Thur for consideration. Pt given all this info - encouaged to go to ED if unable to wait until Thur. I do not have adequate meds in pysxis to dispense. pt and SO state understanding and agreement with plan. pt is not SI/ HI - encouarge 911 or ED if feelings/ thoughts develop. Pt comfortable and in agreement with plan - Differential Dx - Multi-Symptom Provider Diagnoses: panic disorder. medication refill Discharge - Discharge Plan Condition: Stable Disposition: HOME Patient Education Materials: Medicine Refill (ED) Referrals: [facility] [Outside] - As Soon As Possible Jose Griffin MD [Primary Care Provider] - Additional Instructions: - The doctor that evaluated you today is unable to voucher your prescriptions The following is recommended: - You have an appointment at [facility] at 9:30am on , 2016 with Stefano Junior [place], [place] [phone] If you are unable to keep this appointment, you should call or reschedule If you are unable to wait until , it is recommended you go to the emergency department for a mental health evaluation and possible assistance with your prescriptions [facility] are at [facility]- the co-payment is $3.50 per script - you may consider getting only some of your medications Contact the [facility] program to schedule a follow-up appointment - reschedule your intake appointment The documentation as recorded by the Rosey rucker Thomas accurately reflects the service I personally performed and the decisions made by me, Yakelin Domínguez MD.
[2017-05-29 15:33] VITALS: BP 124/90
== END 2017-05-29 16:38 | disposition home or self-care (01) ==
LOC: UCEAST 12:48
DX: F40.01 Agoraphobia with panic disorder (principal); F31.9 Bipolar disorder, unspecified; Z76.0 Encounter for issue of repeat prescription; Z88.1 Allergy status to other antibiotic agents
CPT/HCPCS: 99212; G0463

== ENCOUNTER 2017-06-12 07:01 | Inpatient (IN) | payer MEDICARE, MEDICAID ==
[2017-06-12] MEDS ORDERED: ALPRAZolam TAB* 0.25 MG PO ONE ×2 (07:34→10:25)
[2017-06-12 08:01] LABS: Urine Appearance Clear; Urine Blood Negative (Negative); Urine Color Straw; Urine Ketones Negative (Negative); Urine Protein Negative (Negative); Urine Specific Gravity 1.005 (1.010-1.030); Urine Urobilinogen Negative (Negative)
[2017-06-12 08:15] LABS: ABS Basophils 0.1 10^3/ul (0-0.2); ABS Eosinophils 0.1 10^3/ul (0-0.6); ABS Lymphocytes 1.9 10^3/ul (1.0-4.8); ABS Monocytes 0.5 10^3/ul (0-0.8); ABS Neutrophils 4.4 10^3/ul (1.5-7.7); ABS Nucleated RBC 0.01 10^3/ul; Eosinophil % 1.1 % (0-6); Hematocrit 41 % (42-52); Hemoglobin 14.6 g/dl (14.0-18.0); Lymphocyte % 27.6 % (25-47); Mean Corpuscular HGB Conc 36 g/dl (31-36); Mean Corpuscular Hemoglobin 29 pg (27-31); Mean Corpuscular Volume 80 fL (80-94); Nucleated Red Blood Cells % 0.2; Red Cell Distribution Width 15 % (10.5-15); White Blood Count 6.9 10^3/ul (3.5-10.8)
[2017-06-12 08:31] LABS: EGFR Non-African American 104.3 (>60)
[2017-06-12 09:24] LABS: Platelet Count 316 10^3/ul (150-450)
[2017-06-12] MEDS ORDERED: clonazePAM TAB(*) 1 MG PO PRN (11:29)
[2017-06-12] MEDS: Gabapentin CAP(*) 300 MG PO SCH ×2 (14:01→20:49)
--- NOTE | 2017-06-12 17:32 | ED ---
Jose Fox Angela, scribed for Jyoti Walls MD on 06/12/17 at 0721 . Psychiatric Complaint - HPI Summary HPI Summary: This pt is a 36 y/o male presenting to [facility] via EMS c/o SI for many years. Pt reports he moved from [place] to [place], [place] due to his kids living here. Pt is homeless and has been staying at the [facility] for the past 2 weeks. Pt notes he was in prison and states he happened to be around the wrong people. Denies hx of drug use. He reports everything looks distorted but denies auditory or visual hallucinations. Pt was on Klonopin for a little more than 20 years, but has not been on it recently. Pt denies any suicidal gestures today. He denies headache, diplopia, blurry vision, ear ache, sore throat, chest pain, SOB, abd pain, back pain, dysuria, constipation, rash, bruises. Pt notes some hematuria but states he has a hx of this. Denies hx of anal sex. Pt has 3 kids in total, 2 in [place] and 1 in [place]. PMHx includes severe anxiety panic disorder, HTN. - History Of Current Complaint Chief Complaint: EDMentalHealth Time Seen by Provider: 06/12/17 07:07 Hx Obtained From: Patient Onset/Duration: Lasting Days, Still Present Timing: Days Character: Anxious, Frustrated Aggravating Factor(s): Medication Non-compliance Associated Signs And Symptoms: Negative: Hallucinating Has Suicidal: Reports: Thoughts - Allergies/Home Medications Allergies/Adverse Reactions: Allergies Allergy/AdvReac Type Severity Reaction Status Date / Time Amoxicillin Allergy Rash Verified 05/29/17 12:58 Home Medications: Home Medications Gabapentin CAP(*) [Neurontin 300 CAP(*)] 800 mg PO TID 06/12/17 [History Confirmed 06/12/17] Metoprolol Succinate XL TAB* [Toprol XL TAB*] 50 mg PO BID 06/12/17 [History Confirmed 06/12/17] QUEtiapine XR TAB* [Seroquel Xr TAB*] 100 mg PO BEDTIME 06/12/17 [History Confirmed 06/12/17] clonazePAM TAB(*) [Klonopin TAB(*)] 1 mg PO TID PRN MDD 3mg 06/12/17 [History Confirmed 06/12/17] PMH/Surg Hx/FS Hx/Imm Hx Endocrine/Hematology History: Reports: Hx Anemia Denies: Hx Anticoagulant Therapy, Hx Diabetes, Hx Thyroid Disease Cardiovascular History: Reports: Hx Hypertension Denies: Hx Congestive Heart Failure, Hx Deep Vein Thrombosis, Hx Myocardial Infarction, Hx Pacemaker/ICD Respiratory History: Denies: Hx Asthma - He states that he is on Toprol for his blood pressure., Hx Chronic Obstructive Pulmonary Disease (COPD), Hx Lung Cancer, Hx Pneumonia, Hx Pulmonary Embolism GI History: Reports: Hx Gastroesophageal Reflux Disease, Hx Gastrointestinal Bleed - He states that he has had esophageal bleeding from reflux., Hx Ulcer - gi bleed History: Reports: Hx Kidney Stones Sensory History: Reports: Hx Contacts or Glasses Denies: Hx Hearing Aid Opthamlomology History: Reports: Hx Contacts or Glasses Neurological History: Denies: Hx Dementia, Hx Migraine, Hx Seizures, Hx Transient Ischemic Attacks (TIA) Psychiatric History: Reports: Hx Anxiety, Hx Depression, Hx Panic Disorder, Hx Inpatient Treatment, Hx Bipolar Disorder, Hx of Violent Episodes Against Others Denies: Hx Eating Disorder - Surgical History Surgery Procedure, Year, and Place: stent placement for kidney stones X2 - Immunization History Date of Tetanus Vaccine: utd Infectious Disease History: No Infectious Disease History: Denies: Hx Clostridium Difficile, Hx Hepatitis, Hx Human Immunodeficiency Virus (HIV), Hx of Known/Suspected MRSA, Hx Shingles, Hx Tuberculosis, Hx Known/ Suspected VRE, Hx Known/Suspected VRSA, History Other Infectious Disease, Traveled Outside the [place] in Last 30 Days - Family History Known Family History: Positive: Cardiac Disease, Hypertension Negative: Diabetes - Social History Alcohol Use: Rare Hx Substance Use: No Substance Use Type: Reports: None Smoking Status (MU): Never Smoked Tobacco Have You Smoked in the Last Year: No Review of Systems Constitutional: Other - everything looks distorted Negative: Blurred Vision, Diplopia Negative: Sore Throat, Ear Ache Negative: Chest Pain Negative: Shortness Of Breath Negative: Abdominal Pain, Other - constipation Positive: hematuria. Negative: dysuria Negative: Other - back pain Negative: Rash, Bruising Negative: Headache All Other Systems Reviewed And Are Negative: No Physical Exam - Summary Physical Exam Summary: Appearance: Alert, conversive, nontoxic appearing Skin: Warm, dry, no mottling, no rashes, no contusions HEENT: EOMI, PERRL, slight dry mucous membranes Neck: No masses on the neck, supple Respiratory: Clear to auscultation, breath sounds present, no rales, no rhonchi , no wheezes Cardiovascular: RRR, pulses are symmetrical in both lower and upper extremities Abdomen: Soft, non-tender Bowel Sounds: Present Musculoskeletal: No CVA tenderness, no obvious deformity, moving all extremities in a grossly normal manner Neurological: A&Ox3, CN II-XII Intact, moving all extremities symmetrically Psychiatric: Poor insight and judgment. Slight poor eye contact. Triage Information Reviewed: Yes Vital Signs On Initial Exam: Initial Vitals Temp Pulse Resp BP Pulse Ox 99.3 F 99 18 132/60 99 06/12/17 07:05 06/12/17 07:05 06/12/17 07:05 06/12/17 07:05 06/12/17 07:05 Vital Signs Reviewed: Yes - Elif Coma Scale Coma Scale Total: 15 Diagnostics - Vital Signs Vital Signs Temp Pulse Resp BP Pulse Ox 06/12/17 07:05 99.3 F 99 18 132/60 99 - Laboratory Lab Results: Lab Results 06/12/17 06/12/17 06/12/17 Range/Units 07:21 07:53 07:53 WBC 6.9 (3.5-10.8) 10^3/ul RBC 5.10 (4.0-5.4) 10^6/ul Hgb 14.6 (14.0-18.0) g/dl Hct 41 L (42-52) % MCV 80 (80-94) fL MCH 29 (27-31) pg MCHC 36 (31-36) g/dl RDW 15 (10.5-15) % Plt Count 316 (150-450) 10^3/ul MPV Not Reportable Neut % (Auto) 62.9 (38-83) % Lymph % (Auto) 27.6 (25-47) % [place] % (Auto) 7.1 (1-9) % Eos % (Auto) 1.1 (0-6) % Baso % (Auto) 1.3 (0-2) % Absolute Neuts (auto) 4.4 (1.5-7.7) 10^3/ul Absolute Lymphs (auto) 1.9 (1.0-4.8) 10^3/ul Absolute Monos (auto) 0.5 (0-0.8) 10^3/ul Absolute Eos (auto) 0.1 (0-0.6) 10^3/ul Absolute Basos (auto) 0.1 (0-0.2) 10^3/ul Absolute Nucleated RBC 0.01 10^3/ul Nucleated RBC % 0.2 Sodium 134 (133-145) mmol/L Potassium Pending Chloride 101 (101-111) mmol/L Carbon Dioxide 22 (22-32) mmol/L Anion Gap Pending BUN 7 (6-24) mg/dL Creatinine 0.83 (0.67-1.17) mg/dL Est GFR ( Amer) 134.1 (>60) Est GFR (Non-Af Amer) 104.3 (>60) BUN/Creatinine Ratio 8.4 (8-20) Glucose 111 H (70-100) mg/dL Calcium 9.7 (8.6-10.3) mg/dL Total Bilirubin 0.50 (0.2-1.0) mg/dL AST Pending ALT 19 (7-52) U/L Alkaline Phosphatase 72 (34-104) U/L Total Protein 7.9 (6.4-8.9) g/dL Albumin 4.4 (3.2-5.2) g/dL Globulin 3.5 (2-4) g/dL Albumin/Globulin Ratio 1.3 (1-3) TSH 0.78 (0.34-5.60) mcIU/mL Urine Color Straw Urine Appearance Clear Urine pH 7.0 (5-9) Ur Specific [place] 1.005 L (1.010-1.030) Urine Protein Negative (Negative) Urine Ketones Negative (Negative) Urine Blood Negative (Negative) Urine Nitrate Negative (Negative) Urine Bilirubin Negative (Negative) Urine Urobilinogen Negative (Negative) Ur Leukocyte Esterase Negative (Negative) Urine Glucose Negative (Negative) Serum Alcohol < 10 (<10) mg/dL Result Diagrams: 06/12/17 07:53 06/12/17 12:53 Lab Statement: Any lab studies that have been ordered have been reviewed, and results considered in the medical decision making process. - EKG 07:54 Cardiac Rate: NL EKG Rhythm: Sinus Rhythm - at 88 bpm EKG Interpretation: Normal QRSD. Normal QTc. Normal ST-T waves. Course/Dx - Course Course Of Treatment: This pt is a 36 y/o male presenting to [facility] via EMS c/o SI for many years. Pt reports he moved from [place] to [place], [place] due to his kids living here. Pt is homeless and has been staying at the [facility] for the past 2 weeks. Pt notes he was in prison and states he happened to be around the wrong people. Denies hx of drug use. He reports everything looks distorted but denies auditory or visual hallucinations. Pt was on Klonopin for a little more than 20 years, but has not been on it recently. Pt denies any suicidal gestures today. Pt is medically cleared at 09:15. He is awaiting MHE. Pt was evaluated and admission was recommended by Dr. Lozada. Pt will be admitted to psychiatric facility in [facility]. - Differential Dx/Clinical Impression Provider Diagnosis: Mood disorder, Depressive disorder Discharge - Discharge Plan Condition: Stable Disposition: PSYCHIATRIC FACILITY[place] The documentation as recorded by the Jose rucker Angela accurately reflects the service I personally performed and the decisions made by me, Jyoti Walls MD.
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
[2017-06-12] MEDS: QUEtiapine XR TAB* 200 MG PO SCH (20:49)
[2017-06-12] MEDS ORDERED: QUEtiapine XR TAB* 300 MG PO SCH (21:00)
[2017-06-13] MEDS: Metoprolol Succinate XL TAB* 50 MG PO SCH (08:29)
[2017-06-13] MEDS: Gabapentin CAP(*) 300 MG PO SCH ×3 (08:30→20:34)
[2017-06-13] MEDS: Omeprazole CAP* 20 MG PO SCH (08:31)
[2017-06-13] MEDS: Vitamin THERAPEUTIC TAB PO SCH (08:31)
[2017-06-13] MEDS ORDERED: PARoxetine HCL TAB* 40 MG PO SCH (09:00)
[2017-06-13] MEDS ORDERED: Influenza VAC *QUAD* 2017-18* 0.5 ML SYRINGE IM ONE (09:00)
[2017-06-13] MEDS ORDERED: Venlafaxine EXT RELEASE CAP* 37.5 MG PO ONE (10:21)
--- NOTE | 2017-06-13 11:26 | PN ---
MHU: Group Therapy Note - Service Type Service Type: [id number] Group Psychotherapy - Cognitive Behavioral Group Therapy ( CBT):Patient was attentive and participatory in CBT programming this morning, and remained in good behavioral control. Patient expressed positive insights regarding relevant treatment interventions and goals.
--- NOTE | 2017-06-13 16:19 | PN ---
Subjective - Subjective Service Type: [id number] Hosp care 15 min low complexity Subjective: Patient is dysphoric with restricted affect. He endorses anxiety and depressed mood. He is seclusive to self outside of formal groups. He spends much time on the patient phone during free time. He is tolerating medication change thus far. Objective - Appearance Appearance: Well Developed/Nourished Dysmorphic Features: Yes Hygiene: Normal Grooming: Well Kept - Behavior Psychomotor Activities: Normal Exhibits Abnormal Movement: No - Attitude and Relatedness Attitude and Relatedness: Cooperative Eye Contact: Good - Speech Quality: Unpressured Latencies: Normal Quantity: Appropriate - Mood Patient's Decription of Mood: "Anxious" - Affect Observed Affect: Depressed Affect Consistent with: Dysphoria - Thought Process Patient's Thought Process: Coherent, Impoverished Thought Content: Yes Passive Wish, No Suicidal Planning, No Homicidal Ideation, No Paranoid Ideation - Sensorium Experiencing Hallucinations: No, Sensorium is Clear Type of Hallucinations: Visual: No, Auditory: No, Command: No - Level of Consciousness Level of Consciousness: Alert Orientation: Yes Intact, Yes Orientated to Time, Yes Orientated to Place, Yes Orientated to Person - Impulse Control Impulse Control: Tenuous - Insight and Judgement Insight and Judgement: Fair - Group Participation Particating in Group Activities: Yes - Medication Management Medication Management Adherence: Yes Assessment - Assessment Merits Inpatient Hospitalization: For Immediate Safety, For Stabilization, For Discharge Planning Inpatient DSM-IV Dx: ADAN; unspecified depressive d/o Plan - Plan Treatment Plan: Name: WILMER JIMENEZ Birthdate: 1980 [id number] continue acute intensive psychiatric treatment. decrease to 30min observation and allow staff pass. continue to cross titrate from paroxetine to venlafaxine. Continued Medication Management: Different Medication Medications: Current Medications Acetaminophen (Tylenol Tab*) 650 mg PO Q4H PRN PRN Reason: PAIN or TEMP > 101 F Al Hydrox/Mg Hydrox/Simethicone (Maalox Plus*) 30 ml PO Q4H PRN PRN Reason: INDIGESTION Gabapentin (Neurontin Cap(*)) 600 mg PO TID [facility] Last Admin: 06/13/17 13:59 Dose: 600 mg Metoprolol Succinate (Toprol Xl Tab*) 50 mg PO DAILY [facility] Last Admin: 06/13/17 08:29 Dose: 50 mg Multivitamins (Theragran Tab*) 1 tab PO DAILY [facility] Last Admin: 06/13/17 08:31 Dose: 1 tab Omeprazole (Prilosec Cap*) 40 mg PO DAILY@0630 [facility] Last Admin: 06/13/17 08:31 Dose: 40 mg Quetiapine Fumarate (Seroquel Xr Tab*) 400 mg PO BEDTIME [facility] Last Admin: 06/12/17 20:49 Dose: 400 mg Venlafaxine HCl (Effexor Xr Cap*) 75 mg PO DAILY ANN-MARIE - Discharge Plan Discharge Plan: Outpatient Follow Up Outpatient Program: [facility]
[2017-06-13] MEDS: QUEtiapine XR TAB* 200 MG PO SCH (20:35)
[2017-06-14] MEDS: Vitamin THERAPEUTIC TAB PO SCH (08:55)
[2017-06-14] MEDS: Venlafaxine EXT RELEASE CAP* 75 MG PO SCH (08:55)
[2017-06-14] MEDS: Omeprazole CAP* 20 MG PO SCH (08:55)
[2017-06-14] MEDS: Gabapentin CAP(*) 300 MG PO SCH ×3 (08:55→20:24)
[2017-06-14] MEDS: Metoprolol Succinate XL TAB* 50 MG PO SCH (08:56)
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
[2017-06-14] MEDS: Acetaminophen TAB* 325 MG PO PRN (14:02)
[2017-06-14] MEDS: QUEtiapine XR TAB* 200 MG PO SCH (20:24)
[2017-06-15] MEDS: Gabapentin CAP(*) 300 MG PO SCH ×3 (08:39→21:09)
[2017-06-15] MEDS: Venlafaxine EXT RELEASE CAP* 75 MG PO SCH (08:39)
[2017-06-15] MEDS: Metoprolol Succinate XL TAB* 50 MG PO SCH (08:40)
[2017-06-15] MEDS: Vitamin THERAPEUTIC TAB PO SCH (08:40)
[2017-06-15] MEDS: Omeprazole CAP* 20 MG PO SCH (08:40)
[2017-06-15] MEDS ORDERED: Venlafaxine EXT RELEASE CAP* 37.5 MG PO SCH (09:00)
--- NOTE | 2017-06-15 11:24 | PN ---
MHU: Group Therapy Note - Service Type Service Type: 46910 Group Psychotherapy - Cognitive Behavioral Group Therapy ( CBT):Patient was attentive and participatory in CBT programming this morning, and remained in good behavioral control. Patient expressed positive insights regarding relevant treatment interventions and goals.
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
[2017-06-15] MEDS: Acetaminophen TAB* 325 MG PO PRN (13:11)
[2017-06-15] MEDS: QUEtiapine XR TAB* 200 MG PO SCH (21:09)
[2017-06-16] MEDS: Omeprazole CAP* 20 MG PO SCH (10:05)
[2017-06-16] MEDS: Vitamin THERAPEUTIC TAB PO SCH (10:06)
[2017-06-16] MEDS: Venlafaxine EXT RELEASE CAP* 75 MG PO SCH (10:06)
[2017-06-16] MEDS: Gabapentin CAP(*) 300 MG PO SCH ×3 (10:07→20:45)
[2017-06-16] MEDS: Metoprolol Succinate XL TAB* 50 MG PO SCH (10:08)
[2017-06-16] MEDS: Acetaminophen TAB* 325 MG PO PRN (12:25)
--- NOTE | 2017-06-16 16:16 | PN ---
Subjective - Subjective Date of Service: 06/16/17 Service Type: 54147 Hosp care 15 min low complexity Subjective: Reports of feeling anxious and hopeless today as nothing seems to be helpful such as meds and therapy. Aloof, depressed and sad. Otherwise denies hallucinations, delusions or SI/HI. Taking meds as prescribed and appears to be tolerating well. Objective - Appearance Appearance: Well Developed/Nourished Dysmorphic Features: No Hygiene: Normal Grooming: Fairly Well Kept - Behavior Psychomotor Activities: Abnormal-Decreased Exhibits Abnormal Movement: No - Attitude and Relatedness Attitude and Relatedness: Cooperative Eye Contact: Poor - Speech Quality: Unpressured Latencies: Normal Quantity: Appropriate - Mood Patient's Decription of Mood: "Terrible" - Affect Observed Affect: Constricted - Thought Process Thought Content: No Passive Wish, No Suicidal Planning, No Homicidal Ideation, No Paranoid Ideation - Sensorium Experiencing Hallucinations: No, Sensorium is Clear Type of Hallucinations: Visual: No, Auditory: No, Command: No - Level of Consciousness Level of Consciousness: Alert Orientation: Yes Intact, Yes Orientated to Time, Yes Orientated to Place, Yes Orientated to Person - Impulse Control Impulse Control: Intact - Insight and Judgement Insight and Judgement: Poor - Group Participation Particating in Group Activities: No - Medication Management Medication Management Adherence: Yes Assessment - Assessment Merits Inpatient Hospitalization: For Stabilization, Pending Safe DC Plan Inpatient DSM-IV Dx: ADAN; unspecified depressive d/o; alcohol use d/o, in remission Plan - Plan Treatment Plan: Name: WILMER JIMENEZ Birthdate: 1980 [id number] Continued Medication Management: Continue Outpt Medication Medications: Current Medications Acetaminophen (Tylenol Tab*) 650 mg PO Q4H PRN PRN Reason: PAIN or TEMP > 101 F Last Admin: 06/16/17 12:25 Dose: 650 mg Al Hydrox/Mg Hydrox/Simethicone (Maalox Plus*) 30 ml PO Q4H PRN PRN Reason: INDIGESTION Gabapentin (Neurontin Cap(*)) 600 mg PO TID [facility] Last Admin: 06/16/17 13:42 Dose: 600 mg Metoprolol Succinate (Toprol Xl Tab*) 50 mg PO DAILY [facility] Last Admin: 06/16/17 10:08 Dose: 50 mg Multivitamins (Theragran Tab*) 1 tab PO DAILY [facility] Last Admin: 06/16/17 10:06 Dose: 1 tab Omeprazole (Prilosec Cap*) 40 mg PO DAILY@0630 [facility] Last Admin: 06/16/17 10:05 Dose: Not Given Quetiapine Fumarate (Seroquel Xr Tab*) 400 mg PO BEDTIME [facility] Last Admin: 06/15/17 21:09 Dose: 400 mg Venlafaxine HCl (Effexor Xr Cap*) 150 mg PO DAILY [facility] Last Admin: 06/16/17 10:06 Dose: 150 mg - Discharge Plan Discharge Plan: Outpatient [facility]
[2017-06-16] MEDS: Al Hydrox/Mg Hydrox/Simet LIQ* 30 ML UDC PO PRN (16:28)
[2017-06-16] MEDS: QUEtiapine XR TAB* 200 MG PO SCH (20:46)
[2017-06-17] MEDS: Omeprazole CAP* 20 MG PO SCH (09:28)
[2017-06-17] MEDS: Gabapentin CAP(*) 300 MG PO SCH ×3 (09:28→21:11)
[2017-06-17] MEDS: Vitamin THERAPEUTIC TAB PO SCH (09:29)
[2017-06-17] MEDS: Metoprolol Succinate XL TAB* 50 MG PO SCH (09:29)
[2017-06-17] MEDS: Venlafaxine EXT RELEASE CAP* 75 MG PO SCH (09:29)
[2017-06-17] MEDS: Acetaminophen TAB* 325 MG PO PRN (13:32)
[2017-06-17] MEDS: QUEtiapine XR TAB* 200 MG PO SCH (21:11)
[2017-06-18] MEDS: Omeprazole CAP* 20 MG PO SCH (08:20)
[2017-06-18] MEDS: Gabapentin CAP(*) 300 MG PO SCH ×3 (09:00→20:20)
[2017-06-18] MEDS: Venlafaxine EXT RELEASE CAP* 75 MG PO SCH (09:01)
[2017-06-18] MEDS: Vitamin THERAPEUTIC TAB PO SCH (09:01)
[2017-06-18] MEDS: Metoprolol Succinate XL TAB* 50 MG PO SCH (09:01)
[2017-06-18] MEDS: Acetaminophen TAB* 325 MG PO PRN (11:46)
[2017-06-18] MEDS ORDERED: hydrOXYzine HCL TAB* 50 MG PO PRN (11:47)
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
[2017-06-18] MEDS: Al Hydrox/Mg Hydrox/Simet LIQ* 30 ML UDC PO PRN ×2 (15:39→22:10)
[2017-06-18] MEDS: QUEtiapine XR TAB* 200 MG PO SCH (20:19)
[2017-06-19 08:38] VITALS: BP 125/81
[2017-06-19] MEDS: Omeprazole CAP* 20 MG PO SCH (08:59)
[2017-06-19] MEDS: Venlafaxine EXT RELEASE CAP* 75 MG PO SCH (09:00)
[2017-06-19] MEDS: Gabapentin CAP(*) 300 MG PO SCH (09:00)
[2017-06-19] MEDS: Metoprolol Succinate XL TAB* 50 MG PO SCH (09:00)
[2017-06-19] MEDS: Vitamin THERAPEUTIC TAB PO SCH (09:00)
[2017-06-19] MEDS: Acetaminophen TAB* 325 MG PO PRN (09:02)
[2017-06-19] MEDS: Al Hydrox/Mg Hydrox/Simet LIQ* 30 ML UDC PO PRN (12:23)
--- NOTE | 2017-06-20 00:55 | DS ---
AMENDED REPORT NOW INCLUDES COSIGNER DESIGNATION CC: [facility]; Dr. Griffin; and Probation, Onel Franklin * DISCHARGE SUMMARY: DATE OF ADMISSION: 06/12/17 DATE OF DISCHARGE: 06/19/17 SUPERVISING PHYSICIAN: Andrey Lozada MD * (DICTATED BY АННА BARRAZA NP) DISCHARGE DIAGNOSES: 1. Unspecified bipolar disorder. 2. Panic disorder. 3. History of gastroesophageal reflux disease. 4. Hypertension. CONDITION AT TIME OF DISCHARGE: Improved. The patient is euthymic upon approach. He is cooperative with the interview and has good eye contact. He reports willingness to continue with outpatient services for both probation and mental health treatment. This service writer advisor notifies patient of elevated lipid panel and followup appointment with his primary care provider, Dr. Griffin, next week. The patient denies suicidal ideation. He reports motivation to reunify with his children and his girlfriend. The patient met with CPS primary care sales representative this morning. The patient was able to give examples of journal entries as assigned by this service writer advisor yesterday. He was praised for his efforts on challenging negative thoughts. MENTAL STATUS EXAM: At the time of discharge, the patient is a small-framed white male who appears stated age. He is well groomed and dressed in his own clothing. He is alert and oriented x3. He makes good eye contact. His speech is soft and articulate. He answers questions fully. Thought process is circumstantial in regards to followup appointments, otherwise logical and goal directed. There is evidence of forward thinking. He denies suicidal ideation, urges for self-harm. His insight is fair. His judgement is fair. Fund of knowledge is adequate. DISCHARGE INSTRUCTIONS: Discharge instructions will be given to the patient by nursing staff. A. Medications: 1. Gabapentin 600 mg p.o. t.i.d. 2. Hydroxyzine 50 mg p.o. t.i.d. p.r.n. anxiety. 3. Quetiapine XR 400 mg p.o. q.h.s. 6. Venlafaxine XR 150 mg p.o. daily. The above medications were prescribed to [facility] [place] per patient's request. The patient will resume the following medications through his primary care provider. 1. Toprol-XL 50 mg p.o. daily. 2. Omeprazole 40 mg p.o. daily. B. Diet: Low cholesterol, low fat. C. Activities: Ambulation as tolerated. Tobacco cessation is not applicable. There are no studies or labs pending at the time of discharge. The patient is instructed to safely dispose the unused prescription medication. D. Followup Care: The patient will follow up at [facility] and has an intake on , 06/21/17, at 10 a.m. He is being referred to alcohol and drug consult by Social Work. He will follow up with his [facility] seaman officer, Onel Franklin, on 06/20/17, at 11:30 a.m. He will follow up with his primary care provider Dr. Griffin on , 06/28/17, at 1 p.m. E. Substance use treatment: The patient is referred to alcohol and drug consult. The patient also states he will likely follow up with drug treatment court through his seaman officer. HOSPITAL COURSE: A. Reason for admission: The patient presented to the emergency department via EMS with complaints of anxiety, depressed mood and suicidal ideation. The patient was admitted to adult behavioral services unit on voluntary status. He was encouraged to participate in supportive milieu, individual sessions with staff and psychoeducational groups. B. Psychiatric treatment rendered: While in the emergency department, the patient had laboratory work done. His CBC was grossly unremarkable. His CMP was within normal limits. TSH 0.78. Urinalysis within normal limits. Toxicology needed to be obtained on the unit as it had not been in the emergency department. So, on the second day of admission, urine drug screen was obtained and this was negative. Due to treatment with second generation antipsychotic quetiapine, we obtained hemoglobin A1c and lipid profile this morning. Hemoglobin A1c was within normal limits. Triglycerides 1527, cholesterol 257, LDL 40 and HDL 25.9. The patient was notified of blood results. The patient was primarily seclusive to self and minimally participated in unit programming, Due to his history of alcohol use disorder and benzodiazepine use disorder, clonazepam was discontinued and patient was monitored for withdrawal symptoms. We started a trial of venlafaxine as the patient reported efficacy with this use in the past. The patient tolerated trial well and venlafaxine was increased to 115 mg daily. Paxil was discontinued, Gabapentin was continued , scheduled 3 times a day. Hydroxyzine was added for p.r.n. anxiety. Much patient education was done by service writer advisor and staff about CBT, and other treatments for anxiety. The patient was given multiple assignments and information about challenging negative thoughts. He continued to be superficially engaged and reported fear of suicide if he were to be discharged. The patient was encouraged to reach out to his seaman officer to identify steps to be able to be reunified with his family, but he did not follow through on that suggestion. The patient was noted to use the phone often during free times, likely talking with his girlfriend Sherley. The patient was encouraged to identify a plan for himself in addition to services that Social Work is referring for him. The patient was safe on all checks and decreased to 30-minute observation. He was allowed to go on staff pass with the plan to discharge for Sunday morning, 06/18/17. He reported concerns of urges for self-harm. Therefore, discharge was put on hold. The patient was given more information and instructions on challenging negative thoughts. This morning,patient was able to present service writer advisor with journaling that he had done. It was noted to be thoughtful and thorough and service writer advisor praised him for his efforts. He is notified of plan to meet with seaman officer tomorrow. The patient states he will use this meeting to identify steps he needs to take in order to reunify with his family. The patient is at mild risk due to superficial involvement in treatment, as observed on this unit. He exhibits evidence of forward thinking in regards to his family. It is our hope that [facility] follows through on outpatient referrals and continues to work on a daily basis on challenging negative thought patterns. He has a strong support in his girlfriend Sherley and seaman officer Onel. АННА BARRAZA NP [id number]/[facility] #: [id number] ALEX
== END 2017-06-19 13:30 | disposition home or self-care (01) | DRG 885 ==
LOC: ED 07:01 → BSU 11:15
PROVIDERS: ADMIT Psychiatry & Neurology Psychiatry; ATTEND Psychiatry & Neurology Psychiatry
DX: F31.9 Bipolar disorder, unspecified (principal); R45.851 Suicidal ideations; F41.0 Panic disorder [episodic paroxysmal anxiety]; K21.9 Gastro-esophageal reflux disease without esophagitis; I10 Essential (primary) hypertension; Z81.8 Family history of other mental and behavioral disorders; Z79.899 Other long term (current) drug therapy; Z88.1 Allergy status to other antibiotic agents; F10.11 Alcohol abuse, in remission
CPT/HCPCS: 36415; 80053; 80061; 80307; 80320; 81003; 83036; 83721; 84443; 85025; 90686; 90853; 93005; 99222; 99231; 99232; 99238; 99285; A9270-GY; G0480

== ENCOUNTER 2017-06-21 11:38 | Observation (INO) | payer MEDICARE, MEDICAID ==
[2017-06-21] MEDS ORDERED: NS 0.9% 1000 ML* 1,000 ML IV ONE (11:55)
[2017-06-21 12:47] LABS: ABS Basophils 0.1 10^3/ul (0-0.2); ABS Eosinophils 0.1 10^3/ul (0-0.6); ABS Lymphocytes 1.4 10^3/ul (1.0-4.8); ABS Monocytes 0.4 10^3/ul (0-0.8); ABS Neutrophils 2.4 10^3/ul (1.5-7.7); ABS Nucleated RBC 0 10^3/ul; Eosinophil % 1.9 % (0-6); Hematocrit 35 % (42-52); Hemoglobin 12.2 g/dl (14.0-18.0); Lymphocyte % 32.2 % (25-47); Mean Corpuscular HGB Conc 35 g/dl (31-36); Mean Corpuscular Hemoglobin 29 pg (27-31); Mean Corpuscular Volume 82 fL (80-94); Mean Platelet Volume 7 um3 (7.4-10.4); Nucleated Red Blood Cells % 0.2; Platelet Count 239 10^3/ul (150-450); Red Cell Distribution Width 16 % (10.5-15); White Blood Count 4.2 10^3/ul (3.5-10.8)
[2017-06-21 13:01] LABS: EGFR Non-African American 151.6 (>60)
[2017-06-21] MEDS ORDERED: Acetaminophen TAB* 325 MG PO PRN (13:41)
[2017-06-21] MEDS ORDERED: NS 0.9% 1000 ML* 1,000 ML IV SCH (13:45)
[2017-06-21 14:58] LABS: Urine Appearance Clear; Urine Blood Negative (Negative); Urine Color Straw; Urine Ketones Negative (Negative); Urine Protein Negative (Negative); Urine Specific Gravity 1.004 (1.010-1.030); Urine Urobilinogen Negative (Negative)
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
[2017-06-21] MEDS: Metoprolol Succinate XL TAB* 50 MG PO SCH (20:41)
--- NOTE | 2017-06-21 21:10 | HP ---
HISTORY AND PHYSICAL: ADDENDUM: Mr. Booth's subsequently found a bottle of gabapentin that had been filled 2 days ago. Two days ago, 90 tablets were filled and today there are only 48 tablets left in the bottle. These were 600 mg tablets. This likely accounts for his drowsiness. I discussed this again with poison control and they recommended continuing telemetry, replacing electrolytes and aggressive IV fluids. [id number]/[facility] #: [id number] MTDGabbi
[2017-06-21] MEDS: NS 0.9% 1000 ML* 1,000 ML IV SCH (22:42)
[2017-06-22] MEDS: NS 0.9% 1000 ML* 1,000 ML IV SCH ×2 (05:18→11:10)
[2017-06-22] MEDS ORDERED: Venlafaxine EXT RELEASE CAP* 75 MG PO SCH (09:00)
[2017-06-22] MEDS: Metoprolol Succinate XL TAB* 50 MG PO SCH (09:19)
[2017-06-22 12:36] VITALS: BP 125/77
[2017-06-22 14:36] LABS: Urine Appearance Clear; Urine Blood Negative (Negative); Urine Color Straw; Urine Ketones Negative (Negative); Urine Protein Negative (Negative); Urine Specific Gravity 1.008 (1.010-1.030); Urine Urobilinogen Negative (Negative)
--- NOTE | 2017-06-22 23:50 | DS ---
DISCHARGE SUMMARY: DATE OF ADMISSION: 06/21/17 DATE OF DISCHARGE: 06/22/17 CHIEF COMPLAINT: Overdose. PRINCIPAL DISCHARGE DIAGNOSIS: Intentional overdose with Seroquel and gabapentin with suicidal intent. SECONDARY DIAGNOSES: 1. Depression. 2. Anxiety. 3. Hypertension. DISCHARGE MEDICATIONS: 1. Tylenol 650 mg p.o. q.4 p.r.n. pain. 2. Gabapentin 600 mg p.o. t.i.d. 3. Hydroxyzine 50 mg p.o. q.6 p.r.n. 4. Omeprazole 40 mg p.o. daily. 5. Seroquel 400 mg p.o. at bedtime. 6. Effexor 150 mg p.o. daily. PHYSICAL EXAMINATION: GENERAL: Alert, young man with depressed affect, in no distress. HEENT: Pupils equal, round, and reactive to light 2 mm bilaterally. Moist mucosa. NECK: No lymphadenopathy. No jugular venous pressure elevation. LUNGS: Clear bilaterally. CHEST: Regular rate and rhythm. No murmurs. ABDOMEN: Soft, nontender, nondistended. No guarding or rebound. No flank tenderness. EXTREMITIES: No piloerection. No edema and no rashes. NEUROLOGIC: Alert and oriented x3. Strength is 5+ throughout. Sensation is intact. HOSPITAL COURSE BY PROBLEM: 1. Intentional overdose with gabapentin and Seroquel with suicidal intent. Mr. Booth reported overwhelming panic every day. He was accompanied by his , who corroborates the story and notes that his mood swings have been more prominent lately with manic and depressive episodes. He also has agoraphobia and has expressed panic in being in large groups. He took 10 tablets of 100 mg of Seroquel and 40 tablets of 600 mg of gabapentin. The Seroquel was taken at all one time; however, the gabapentin was spread out over in 48 hours. The medications were held and Poison Control was contacted. He was monitored for anticholinergic effects of gabapentin and QT prolongation for the Seroquel. He was monitored on telemetry and had no cardiac events. He was evaluated by Psychiatry, who admitted him involuntarily to the psychiatric unit. 2. Hypertension. He was continued on his home medication of metoprolol. 3. Anxiety, depression, and bipolar disorder. His home psychiatric medications were resumed on discharge as per Psychiatry. DISPOSITION: The patient was discharged to inpatient psych on an involuntary basis. TIME SPENT: Greater than 60 minutes were spent on this discharge. [id number]/[facility] #: [id number] ALEX
== END 2017-06-22 15:15 ==
LOC: ED 11:38 → MEDTELE 13:41
PROVIDERS: ADMIT Internal Medicine; ATTEND Internal Medicine
DX: T43.592A Poisoning by other antipsychotics and neuroleptics, intentional self-harm, initial encounter (principal); T42.6X2A Poisoning by other antiepileptic and sedative-hypnotic drugs, intentional self-harm, initial encounter; Y92.9 Unspecified place or not applicable; F31.9 Bipolar disorder, unspecified; F41.9 Anxiety disorder, unspecified; I10 Essential (primary) hypertension; D64.9 Anemia, unspecified; Z79.899 Other long term (current) drug therapy; Z88.0 Allergy status to penicillin; R00.0 Tachycardia, unspecified
CPT/HCPCS: 36415; 80053; 80307; 80320; 80329; 81003; 84443; 85025; 93005; 96360; 96361; 99283; A9270-GY; G0378; G0480

== ENCOUNTER 2017-06-22 10:28 | Inpatient (IN) | payer MEDICARE, MEDICAID ==
[2017-06-22] MEDS ORDERED: hydrOXYzine HCL TAB* 50 MG PO PRN (13:40)
[2017-06-22] MEDS ORDERED: Omeprazole CAP* 20 MG ONE (16:19)
[2017-06-22] MEDS: Omeprazole CAP* 20 MG PO SCH (16:30)
[2017-06-22] MEDS: QUEtiapine XR TAB* 200 MG PO SCH (22:46)
[2017-06-22] MEDS: Gabapentin CAP(*) 300 MG PO SCH ×2 (22:46→23:15)
[2017-06-23] MEDS: Gabapentin CAP(*) 300 MG PO SCH ×3 (10:18→20:18)
[2017-06-23] MEDS: Acetaminophen TAB* 325 MG PO PRN (10:18)
[2017-06-23] MEDS: Omeprazole CAP* 20 MG PO SCH (10:19)
[2017-06-23] MEDS: Venlafaxine EXT RELEASE CAP* 75 MG PO SCH (10:22)
[2017-06-23] MEDS: QUEtiapine XR TAB* 200 MG PO SCH (20:19)
[2017-06-23] MEDS: Al Hydrox/Mg Hydrox/Simet LIQ* 30 ML UDC PO PRN (20:20)
[2017-06-24] MEDS: Omeprazole CAP* 20 MG PO SCH (08:10)
[2017-06-24] MEDS: Gabapentin CAP(*) 300 MG PO SCH ×3 (10:51→20:50)
[2017-06-24] MEDS: Venlafaxine EXT RELEASE CAP* 75 MG PO SCH (10:51)
--- NOTE | 2017-06-24 15:33 | ADMNOTE ---
Identification - Identify Employment Status: Unemployed Hx Psychiatric Hospitalization: Yes - Several, more recent here at [facility] [place] 06[place]12 to Prior Psychiatric Diagnosis: Bipolar Disorder; Panic Disorder Arrived to Hospital Via: EMS History - Objective HPI: LATE ENTRY FOR 06/21/2017 36-year-old male who was discharged from this unit after a 06/12/17 to 06/19/17' admission because of suicidal ideation. He was discharged in an improved condition on: Gabapentin 600 mg tid; Effexor XR 150 mg daily and Seroquel XR 400 mg QHS with referral to [facility] for follow-up. He relates that he felt anxious after discharge, had recurring panic attacks and intrusive ego dystonic thoughts (including harming his if he found out she was cheating). He spent time with his the day following discharge, she took him to him to his probation and DSS appointments on 06/20/16. She drove to [facility], he became panicky and refused to get out of the car. His went in alone and eventually dropped him off at his motel. He woke up on Sunday morning, feeling panicky, he tried to contact his but she was not available and he impulsively took an overdose of 10 tablets Seroquel XR 400 mg and about 42 of Gabapentin 600 mg. He panicked after the overdose and he called 911 for help and he was brought to this hospital where he was medically treated and when cleared he was readmitted to his service. He denies recent use of alcohol. Stressors include: legal problems, not being alone to see his children and disabling anxiety. Past Medical History: S/p overdose on quetiapine and gabapentin; HTN. Exam Appearance: Healthy Appearing Hygiene: Normal Grooming: Well Kept Psychomotor Activities: Normal Exhibits Abnormal Movement: No Attitude and Relatedness: Cooperative Eye Contact: Fair - Speech Quality: Unpressured Latencies: Normal Quantity: Appropriate Patient's Decription of Mood: "Anxious" Observed Affect: Non-labile Affect Consistent with: Dysphoria Patient's Thought Process: Coherent, Goal Directed Thought Content: No Passive Wish, No Suicidal Planning, No Homicidal Ideation, No Paranoid Ideation Experiencing Hallucinations: No, Sensorium is Clear Level of Consciousness: Alert Orientation: Yes Intact Impulse Control: Intact Insight and Judgement: Fair Impression - Impression Clinical Impression: 36yo male with history of bipolar disorder and anxiety disorder who was readmitted less than 48 hours following a previous discharge after intentional overdose on his prescribed meds in a suicide attempt in the context of disabling anxiety and psychosocial stressors; Inpatient DSM-IV Dx: Panic disorder; ADAN; considerations for bipolar 2 disorder. Merits Inpatient Hospitalization: Yes Plan - Treatment Plan Treatment Plan: Continue withholding previously prescribed Gabapentin and Seroquel. Continued Medication Management: Continue Outpt Medication Medications: Current Medications Acetaminophen (Tylenol Tab*) 650 mg PO Q4H PRN PRN Reason: for pain; or Temp >101 F Last Admin: 06/23/17 10:18 Dose: 650 mg Al Hydrox/Mg Hydrox/Simethicone (Maalox Plus*) 30 ml PO Q4H PRN PRN Reason: INDIGESTION Last Admin: 06/23/17 20:20 Dose: 30 ml Gabapentin (Neurontin Cap(*)) 600 mg PO TID [facility] Last Admin: 06/24/17 10:51 Dose: 600 mg Hydroxyzine HCl (Atarax Tab*) 50 mg PO Q6H PRN PRN Reason: ANXIETY Metoprolol Succinate (Toprol Xl Tab*) 50 mg PO BID [facility] Omeprazole (Prilosec Cap*) 40 mg PO 0630 [facility] Last Admin: 06/24/17 08:10 Dose: 40 mg Quetiapine Fumarate (Seroquel Xr Tab*) 400 mg PO BEDTIME [facility] Last Admin: 06/23/17 20:19 Dose: 400 mg Venlafaxine HCl (Effexor Xr Cap*) 150 mg PO QAM [facility] Last Admin: 06/24/17 10:51 Dose: 150 mg - Discharge Plan Discharge Plan: Outpatient Follow Up Outpatient Program: [facility]
[2017-06-24] MEDS: Acetaminophen TAB* 325 MG PO PRN (15:37)
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
[2017-06-24] MEDS: QUEtiapine XR TAB* 200 MG PO SCH (20:50)
[2017-06-24] MEDS: Metoprolol Succinate XL TAB* 50 MG PO SCH (20:50)
[2017-06-25] MEDS: Omeprazole CAP* 20 MG PO SCH (09:38)
[2017-06-25] MEDS: Metoprolol Succinate XL TAB* 50 MG PO SCH (09:38)
[2017-06-25] MEDS: Venlafaxine EXT RELEASE CAP* 75 MG PO SCH (09:39)
[2017-06-25] MEDS: Gabapentin CAP(*) 300 MG PO SCH ×3 (09:39→20:37)
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
[2017-06-25] MEDS: QUEtiapine XR TAB* 200 MG PO SCH (20:37)
[2017-06-25] MEDS: cloNIDine TAB* 0.1 MG PO SCH (20:38)
[2017-06-26] MEDS: Omeprazole CAP* 20 MG PO SCH (12:37)
[2017-06-26] MEDS: cloNIDine TAB* 0.1 MG PO SCH ×3 (12:37→20:59)
[2017-06-26] MEDS: Gabapentin CAP(*) 300 MG PO SCH ×3 (12:37→20:59)
[2017-06-26] MEDS: Venlafaxine EXT RELEASE CAP* 75 MG PO SCH (12:38)
[2017-06-26] MEDS: Al Hydrox/Mg Hydrox/Simet LIQ* 30 ML UDC PO PRN (14:17)
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
[2017-06-26 20:55] LABS: EGFR Non-African American 92.6 (>60)
[2017-06-26] MEDS: QUEtiapine XR TAB* 200 MG PO SCH (20:58)
[2017-06-26] MEDS ORDERED: Gadoteridol* (CONTRAST) 279.3 MG/ML 10 ML IV ONE (21:22)
--- NOTE | 2017-06-26 22:35 | RAD ---
INDICATION: "Unspecified mood disorder" COMPARISON: None TECHNIQUE: Sagittal T1, axial T1, T2, susceptibility, FLAIR and diffusion-weighted images were obtained. In addition, axial, sagittal and coronal T1-weighted images were obtained following intravenous injection of 18 mL of ProHance contrast. FINDINGS: The ventricles, cisterns and sulci appear to be within normal limits. Saenz-white matter differentiation is adequately defined. At the right putamen (axial image 17) there is a T2 bright focus measuring 3 mm. This is dark on T1 and there is no corresponding enhancement. There are no other suspicious foci or masses, enhancing or otherwise. No areas of restricted diffusion are present. There is no evidence for infarct or hemorrhage. The visualized portion of the paranasal sinuses and mastoid air cells appear clear. IMPRESSION: There is a nonenhancing 3 mm T2 bright focus in the right putamen of doubtful clinical significance in this otherwise normal MRI of the brain.
[2017-06-27] MEDS: Omeprazole CAP* 20 MG PO SCH (06:30)
[2017-06-27] MEDS: cloNIDine TAB* 0.1 MG PO SCH ×3 (09:32→20:57)
[2017-06-27] MEDS: Venlafaxine EXT RELEASE CAP* 75 MG PO SCH (09:33)
[2017-06-27] MEDS: Gabapentin CAP(*) 300 MG PO SCH ×3 (09:33→20:57)
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
[2017-06-27] MEDS: Cholecalciferol TAB* 1000 UNITS PO SCH (12:20)
[2017-06-27] MEDS: Gemfibrozil TAB* 600 MG PO SCH ×2 (12:21→20:57)
[2017-06-27] MEDS: Acetaminophen TAB* 325 MG PO PRN (13:48)
[2017-06-27] MEDS: QUEtiapine XR TAB* 200 MG PO SCH (20:57)
[2017-06-28] MEDS: Cholecalciferol TAB* 1000 UNITS PO SCH (09:47)
[2017-06-28] MEDS: Omeprazole CAP* 20 MG PO SCH (09:47)
[2017-06-28] MEDS: Gabapentin CAP(*) 300 MG PO SCH ×3 (09:47→20:35)
[2017-06-28] MEDS: Venlafaxine EXT RELEASE CAP* 75 MG PO SCH (09:47)
[2017-06-28] MEDS: Gemfibrozil TAB* 600 MG PO SCH ×2 (09:48→20:36)
[2017-06-28] MEDS: cloNIDine TAB* 0.1 MG PO SCH ×3 (09:48→20:36)
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
[2017-06-28] MEDS: Al Hydrox/Mg Hydrox/Simet LIQ* 30 ML UDC PO PRN (13:53)
[2017-06-28] MEDS: QUEtiapine XR TAB* 200 MG PO SCH (20:35)
--- NOTE | 2017-06-28 23:31 | EEG ---
ELECTROENCEPHALOGRAPHY: DATE OF STUDY: 06/27/17 - ROOM #214 LOCATION: The patient is an inpatient. ORDERING PHYSICIAN: Dr. Diaz.* CLINICAL PROBLEM: This is a 36-year-old man who was discharged to the behavioral health unit from the medical floor after being treated for suicide attempt. He took 10 Seroquel XR 400 mg and about 42 gabapentin 600 mg tablets. He has a history of bipolar disorder and panic disorder. EEG is requested to evaluate for epileptiform abnormalities. MEDICATIONS: 1. Hydroxyzine. 2. Aluminum hydroxide. 3. Acetaminophen. 4. Venlafaxine. 5. Omeprazole. 6. Quetiapine. 7. Clonidine. 8. Gabapentin. REPORT: The waking background showed appropriate organization with clearly defined anterior to posterior voltage and frequency gradients. There was a well defined posterior dominant rhythm of 10 Hz, which was symmetrical and showed normal reactivity. Anteriorly, there was an expected pattern of lower voltage, irregular, mixed faster frequencies. Hyperventilation and photic stimulation were performed and the responses were unremarkable. Attenuation of the occipital rhythm accompanied drowsiness, but there were no well- developed sleep spindles to indicate the transition to stage 2 sleep. Throughout the recording, there were no epileptiform discharges, focal features , paroxysmal features, or significant interhemispheric asymmetries. CLINICAL IMPRESSION: This is a normal waking and drowsy EEG. There are no epileptiform abnormalities. [id number]/[facility] #: [id number] [facility]
[2017-06-29] MEDS: Venlafaxine EXT RELEASE CAP* 75 MG PO SCH (10:08)
[2017-06-29] MEDS: Gabapentin CAP(*) 300 MG PO SCH ×3 (10:08→20:07)
[2017-06-29] MEDS: Omeprazole CAP* 20 MG PO SCH (10:09)
[2017-06-29] MEDS: Cholecalciferol TAB* 1000 UNITS PO SCH (10:09)
[2017-06-29] MEDS: cloNIDine TAB* 0.1 MG PO SCH ×3 (10:10→20:08)
[2017-06-29] MEDS: Gemfibrozil TAB* 600 MG PO SCH ×2 (10:10→20:08)
[2017-06-29] MEDS: Al Hydrox/Mg Hydrox/Simet LIQ* 30 ML UDC PO PRN (14:08)
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
[2017-06-29] MEDS: QUEtiapine XR TAB* 200 MG PO SCH (20:07)
[2017-06-30] MEDS: Omeprazole CAP* 20 MG PO SCH (06:25)
[2017-06-30] MEDS: Venlafaxine EXT RELEASE CAP* 75 MG PO SCH (08:36)
[2017-06-30] MEDS: Gemfibrozil TAB* 600 MG PO SCH ×2 (08:37→20:31)
[2017-06-30] MEDS: Cholecalciferol TAB* 1000 UNITS PO SCH (08:37)
[2017-06-30] MEDS: Gabapentin CAP(*) 300 MG PO SCH ×3 (08:38→20:30)
[2017-06-30] MEDS: cloNIDine TAB* 0.1 MG PO SCH ×3 (08:39→20:30)
[2017-06-30] MEDS: Acetaminophen TAB* 325 MG PO PRN (08:40)
[2017-06-30] MEDS: QUEtiapine XR TAB* 200 MG PO SCH (20:31)
[2017-06-30] MEDS: Al Hydrox/Mg Hydrox/Simet LIQ* 30 ML UDC PO PRN (23:20)
[2017-07-01] MEDS: Omeprazole CAP* 20 MG PO SCH (06:30)
[2017-07-01] MEDS: Cholecalciferol TAB* 1000 UNITS PO SCH (08:46)
[2017-07-01] MEDS: Venlafaxine EXT RELEASE CAP* 75 MG PO SCH (08:47)
[2017-07-01] MEDS: cloNIDine TAB* 0.1 MG PO SCH ×3 (08:48→20:46)
[2017-07-01] MEDS: Gabapentin CAP(*) 300 MG PO SCH ×3 (08:48→20:45)
[2017-07-01] MEDS: Gemfibrozil TAB* 600 MG PO SCH ×2 (08:49→20:44)
[2017-07-01] MEDS: QUEtiapine XR TAB* 200 MG PO SCH (20:45)
[2017-07-02] MEDS: Omeprazole CAP* 20 MG PO SCH (06:30)
[2017-07-02] MEDS: Venlafaxine EXT RELEASE CAP* 75 MG PO SCH (08:44)
[2017-07-02] MEDS: Gemfibrozil TAB* 600 MG PO SCH ×2 (08:46→20:47)
[2017-07-02] MEDS: Gabapentin CAP(*) 300 MG PO SCH ×2 (08:46→13:46)
[2017-07-02] MEDS: cloNIDine TAB* 0.1 MG PO SCH ×3 (08:46→20:47)
[2017-07-02] MEDS: Cholecalciferol TAB* 1000 UNITS PO SCH (08:46)
[2017-07-02] MEDS ORDERED: Ondansetron TAB* 4 MG PO PRN (17:11)
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
[2017-07-02] MEDS: Gabapentin CAP(*) 400 MG PO SCH (20:45)
[2017-07-02] MEDS: QUEtiapine XR TAB* 200 MG PO SCH (20:46)
[2017-07-03] MEDS: Cholecalciferol TAB* 1000 UNITS PO SCH (08:37)
[2017-07-03] MEDS: Venlafaxine EXT RELEASE CAP* 75 MG PO SCH (08:38)
[2017-07-03] MEDS: Gabapentin CAP(*) 400 MG PO SCH ×3 (08:38→22:57)
[2017-07-03] MEDS: Omeprazole CAP* 20 MG PO SCH (08:38)
[2017-07-03] MEDS: cloNIDine TAB* 0.1 MG PO SCH ×3 (08:39→22:57)
[2017-07-03] MEDS: Gemfibrozil TAB* 600 MG PO SCH (08:41)
[2017-07-03 08:49] LABS: ABS Basophils 0.1 10^3/ul (0-0.2); ABS Eosinophils 0.1 10^3/ul (0-0.6); ABS Lymphocytes 2.3 10^3/ul (1.0-4.8); ABS Monocytes 0.6 10^3/ul (0-0.8); ABS Nucleated RBC 0 10^3/ul; Eosinophil % 2.6 % (0-6); Hematocrit 40 % (42-52); Hemoglobin 13.6 g/dl (14.0-18.0); Lymphocyte % 45.3 % (25-47); Mean Corpuscular HGB Conc 34 g/dl (31-36); Mean Corpuscular Hemoglobin 28 pg (27-31); Mean Corpuscular Volume 82 fL (80-94); Mean Platelet Volume 8 um3 (7.4-10.4); Nucleated Red Blood Cells % 0.1; Platelet Count 297 10^3/ul (150-450); Red Cell Distribution Width 15 % (10.5-15); White Blood Count 5.1 10^3/ul (3.5-10.8)
[2017-07-03 08:59] LABS: EGFR Non-African American 104.3 (>60)
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
[2017-07-03] MEDS: QUEtiapine XR TAB* 200 MG PO SCH (22:57)
[2017-07-04] MEDS: cloNIDine TAB* 0.1 MG PO SCH ×3 (08:56→20:15)
[2017-07-04] MEDS: Gabapentin CAP(*) 400 MG PO SCH ×3 (08:56→20:14)
[2017-07-04] MEDS: Venlafaxine EXT RELEASE CAP* 75 MG PO SCH (08:57)
[2017-07-04] MEDS: Omeprazole CAP* 20 MG PO SCH (08:57)
[2017-07-04] MEDS: Cholecalciferol TAB* 1000 UNITS PO SCH (08:58)
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
[2017-07-04] MEDS: clonazePAM TAB(*) 1 MG PO SCH ×2 (14:00→20:14)
[2017-07-04] MEDS: QUEtiapine XR TAB* 200 MG PO SCH (20:14)
[2017-07-05] MEDS: Omeprazole CAP* 20 MG PO SCH (06:30)
[2017-07-05] MEDS: Gabapentin CAP(*) 400 MG PO SCH ×3 (08:56→20:34)
[2017-07-05] MEDS: Cholecalciferol TAB* 1000 UNITS PO SCH (08:56)
[2017-07-05] MEDS: clonazePAM TAB(*) 1 MG PO SCH ×3 (08:56→20:34)
[2017-07-05] MEDS: cloNIDine TAB* 0.1 MG PO SCH ×3 (08:56→20:34)
[2017-07-05] MEDS: Venlafaxine EXT RELEASE CAP* 75 MG PO SCH (08:57)
[2017-07-05] MEDS: QUEtiapine XR TAB* 200 MG PO SCH (20:34)
[2017-07-06] MEDS: Omeprazole CAP* 20 MG PO SCH (06:30)
[2017-07-06] MEDS: Cholecalciferol TAB* 1000 UNITS PO SCH (08:46)
[2017-07-06] MEDS: Venlafaxine EXT RELEASE CAP* 75 MG PO SCH (08:47)
[2017-07-06] MEDS: clonazePAM TAB(*) 1 MG PO SCH ×3 (08:47→20:28)
[2017-07-06] MEDS: cloNIDine TAB* 0.1 MG PO SCH ×3 (08:47→20:27)
[2017-07-06] MEDS: Gabapentin CAP(*) 400 MG PO SCH ×3 (08:47→20:27)
--- NOTE | 2017-07-06 08:56 | PN ---
Subjective - Subjective Date of Service: 07/05/17 Service Type: [id number] Group Psychotherapy - Medication Education Group: Patient attended group and presented with flat affect that did not vary with discussion. Although responsive to direct prompts to respond to questions, patient did not engage in spontaneous conversation. Assessment - Assessment Inpatient DSM-IV Dx: Panic disorder; ADAN; considerations for bipolar 2 disorder. Plan - Plan Treatment Plan: Name: WILMER JIMENEZ Birthdate: 1980 [id number] Medications: Current Medications Acetaminophen (Tylenol Tab*) 650 mg PO Q4H PRN PRN Reason: for pain; or Temp >101 F Last Admin: 06/30/17 08:40 Dose: 650 mg Al Hydrox/Mg Hydrox/Simethicone (Maalox Plus*) 30 ml PO Q4H PRN PRN Reason: INDIGESTION Last Admin: 06/30/17 23:20 Dose: 30 ml Cholecalciferol (Vitamin D Tab*) 6,000 units PO DAILY [facility] Last Admin: 07/06/17 08:46 Dose: 6,000 units Clonazepam (Klonopin Tab(*)) 1 mg PO TID [facility] Last Admin: 07/06/17 08:47 Dose: 1 mg Clonidine HCl (Catapres Tab*) 0.1 mg PO TID [facility] Last Admin: 07/06/17 08:47 Dose: 0.1 mg Gabapentin (Neurontin Cap(*)) 400 mg PO TID [facility] Last Admin: 07/06/17 08:47 Dose: 400 mg Hydroxyzine HCl (Atarax Tab*) 50 mg PO Q6H PRN PRN Reason: ANXIETY Omeprazole (Prilosec Cap*) 40 mg PO 0630 [facility] Last Admin: 07/06/17 06:30 Dose: 40 mg Ondansetron HCl (Zofran Tab*) 4 mg PO Q6H PRN PRN Reason: NAUSEA Quetiapine Fumarate (Seroquel Xr Tab*) 400 mg PO BEDTIME [facility] Last Admin: 07/05/17 20:34 Dose: 400 mg Venlafaxine HCl (Effexor Xr Cap*) 300 mg PO QAM [facility] Last Admin: 07/06/17 08:47 Dose: 300 mg
--- NOTE | 2017-07-06 11:59 | PN ---
[facility]: Group Therapy Note - Service Type Service Type: 00585 Group Psychotherapy - Cognitive Behavioral Group Therapy ( CBT):Patient was attentive and participatory in CBT programming this morning, and remained in good behavioral control. Patient expressed positive insights regarding relevant treatment interventions and goals.
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
[2017-07-06] MEDS: QUEtiapine XR TAB* 200 MG PO SCH (20:28)
[2017-07-07] MEDS: Al Hydrox/Mg Hydrox/Simet LIQ* 30 ML UDC PO PRN
[2017-07-07] MEDS: Omeprazole CAP* 20 MG PO SCH (06:30)
[2017-07-07] MEDS: clonazePAM TAB(*) 1 MG PO SCH ×3 (08:33→20:29)
[2017-07-07] MEDS: Cholecalciferol TAB* 1000 UNITS PO SCH (08:34)
[2017-07-07] MEDS: Venlafaxine EXT RELEASE CAP* 75 MG PO SCH (08:34)
[2017-07-07] MEDS: Gabapentin CAP(*) 400 MG PO SCH ×3 (08:35→20:28)
[2017-07-07] MEDS: cloNIDine TAB* 0.1 MG PO SCH ×3 (08:36→20:29)
[2017-07-07] MEDS: QUEtiapine XR TAB* 200 MG PO SCH (20:28)
[2017-07-08] MEDS: Gabapentin CAP(*) 400 MG PO SCH ×3 (08:47→20:35)
[2017-07-08] MEDS: clonazePAM TAB(*) 1 MG PO SCH ×3 (08:48→20:34)
[2017-07-08] MEDS: Cholecalciferol TAB* 1000 UNITS PO SCH (08:48)
[2017-07-08] MEDS: Venlafaxine EXT RELEASE CAP* 75 MG PO SCH (08:49)
[2017-07-08] MEDS: Omeprazole CAP* 20 MG PO SCH (08:50)
[2017-07-08] MEDS: cloNIDine TAB* 0.1 MG PO SCH ×3 (08:50→20:35)
[2017-07-08] MEDS: Al Hydrox/Mg Hydrox/Simet LIQ* 30 ML UDC PO PRN (11:10)
[2017-07-08] MEDS: QUEtiapine XR TAB* 200 MG PO SCH (20:36)
[2017-07-09] MEDS: Venlafaxine EXT RELEASE CAP* 75 MG PO SCH (09:20)
[2017-07-09] MEDS: Gabapentin CAP(*) 400 MG PO SCH ×3 (09:20→20:20)
[2017-07-09] MEDS: cloNIDine TAB* 0.1 MG PO SCH ×3 (09:21→20:21)
[2017-07-09] MEDS: Omeprazole CAP* 20 MG PO SCH (09:21)
[2017-07-09] MEDS: Cholecalciferol TAB* 1000 UNITS PO SCH (09:21)
[2017-07-09] MEDS: clonazePAM TAB(*) 1 MG PO SCH ×3 (09:21→20:20)
--- NOTE | 2017-07-09 11:54 | PN ---
[facility]: Group Therapy Note - Service Type Service Type: 31767 Group Psychotherapy - Cognitive Behavioral Group Therapy ( CBT):Patient was attentive and participatory in CBT programming this morning, and remained in good behavioral control. Patient expressed positive insights regarding relevant treatment interventions and goals.
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
[2017-07-09] MEDS: Al Hydrox/Mg Hydrox/Simet LIQ* 30 ML UDC PO PRN (13:57)
[2017-07-09] MEDS: CMC:Fenofibrate(NF) 160 MG TAB PO SCH (14:08)
[2017-07-09] MEDS: Atorvastatin* 20 MG TAB PO SCH (16:54)
[2017-07-09] MEDS: QUEtiapine XR TAB* 200 MG PO SCH (20:21)
[2017-07-10] MEDS: Cholecalciferol TAB* 1000 UNITS PO SCH (08:53)
[2017-07-10] MEDS: cloNIDine TAB* 0.1 MG PO SCH ×3 (08:54→20:34)
[2017-07-10] MEDS: CMC:Fenofibrate(NF) 160 MG TAB PO SCH (08:54)
[2017-07-10] MEDS: Venlafaxine EXT RELEASE CAP* 75 MG PO SCH (08:54)
[2017-07-10] MEDS: Omeprazole CAP* 20 MG PO SCH (08:54)
[2017-07-10] MEDS: Gabapentin CAP(*) 400 MG PO SCH ×3 (08:54→20:34)
[2017-07-10] MEDS: clonazePAM TAB(*) 1 MG PO SCH ×3 (08:55→20:34)
[2017-07-10] MEDS: Acetaminophen TAB* 325 MG PO PRN (09:55)
[2017-07-10] MEDS: Atorvastatin* 20 MG TAB PO SCH (17:30)
[2017-07-10] MEDS: QUEtiapine XR TAB* 200 MG PO SCH (20:35)
[2017-07-11] MEDS: Omeprazole CAP* 20 MG PO SCH (06:30)
[2017-07-11 07:57] VITALS: BP 115/75
[2017-07-11] MEDS: Cholecalciferol TAB* 1000 UNITS PO SCH (08:42)
[2017-07-11] MEDS: CMC:Fenofibrate(NF) 160 MG TAB PO SCH (08:43)
[2017-07-11] MEDS: clonazePAM TAB(*) 1 MG PO SCH (08:43)
[2017-07-11] MEDS: cloNIDine TAB* 0.1 MG PO SCH (08:43)
[2017-07-11] MEDS: Venlafaxine EXT RELEASE CAP* 75 MG PO SCH (08:43)
[2017-07-11] MEDS: Gabapentin CAP(*) 400 MG PO SCH (08:44)
[2017-07-11] MEDS: Acetaminophen TAB* 325 MG PO PRN (08:45)
--- NOTE | 2017-07-11 16:16 | DS ---
DATE OF ADMISSION: 06/22/2017. DATE OF DISCHARGE: 07/11/2017. DISCHARGE DIAGNOSES: AXIS I: Major depressive disorder, recurrent, severe without psychotic features ; panic disorder with agoraphobia; alcohol use disorder in sustained remission. AXIS II: Antisocial personality traits. AXIS III: Hypertriglyceridemia, gastroesophageal reflux disease, history of peptic ulcer, mild anemia, hypertension. AXIS IV: Severe, primary support and legal stressors. AXIS V: At the time of admission was 30 and at the time of discharge is 60. CONDITION AT THE TIME OF DISCHARGE: Improved. The patient's anxiety is much better controlled. He is able to go to groups and socialize with peers. He has been safe on all checks throughout his prolonged hospitalization. He is tolerating his medications quite well. He is euthymic with a full affect and he is future oriented, stating "I finally see the light at the end of the tunnel ; I want to get back with my children and take care of all these legal obligations that I have and get them over with." Royal has done well here. He has been increasingly participatory in milieu activities and we see him taking more accountability for his actions and for his future. We have been visited by his , Sherley Roberson, who is in agreement with the discharge plan. The patient has been hooked up with [facility] and they are picking him up this morning from the hospital and will continue to provide close monitoring in the outpatient setting. MENTAL STATUS EXAM AT THE TIME OF DISCHARGE: Royal is a middle-aged, well-built , white male with reddish hair and a goatee. He has an earring in both ears. He is clean, well-groomed, makes good eye contact, is cooperative with speech that demonstrates normal rate, tone and volume. Mood is euthymic with a full affect. Thought process is linear and goal directed. Thought content is significant for his desire to be discharged from the hospital. He is future oriented, wanting to work towards getting back with his children once the order of protection is lifted. In the meantime, he is agreeable with residing in DSS emergency housing. He denies suicidal or homicidal ideations. He denies auditory or visual hallucinations. There is no evidence of psychotic thinking. Insight and judgment are fair given his willingness to follow-up with outpatient treatment. Cognitively, he is awake and alert with what would appear to be an average intellect. DIAGNOSTIC STUDIES: The patient had an EEG on the 28 of June that was within normal limits and showed no sign of seizure activity. In addition, he had a brain MRI on the 26 of June which was nonfocal. LABORATORY DATA: The patient's CBC did show mild anemia with a hemoglobin of 13.6 and a hematocrit of 40. Follow-up stool occult blood studies were negative. Complete metabolic panel was within normal limits. Hemoglobin A1c taken on the 27 of June was 4.7. Triglycerides were grossly elevated at 1, 159. Cholesterol was elevated to 230, LDL 38, HDL at 26.6. We did check urine catecholamines and metanephrines on the 29 of June and they were within normal limits. The patient was hepatitis C nonreactive. Folate, vitamin B12, and serum electrolytes were all within normal limits. C-reactive protein was less than 1. Vitamin D level was low at 13.1. DISCHARGE INSTRUCTIONS TO THE PATIENT: A. Medications: Lipitor 20 mg p.o. q.p.m., vitamin D 5,000 units p.o. daily, Klonopin 1 mg p.o. t.i.d., Clonidine 0.1 mg p.o. t.i.d., Tricor 160 mg p.o. daily, Neurontin 400 mg p.o. t.i.d., Prilosec 40 mg p.o. daily, Seroquel XR 400 mg p.o. at bedtime, Effexor XR 300 mg p.o. q.a.m. B. Diet: Regular. C. Activity: As tolerated. The patient is a nonsmoker. There are no laboratory or diagnostic studies pending at the time of discharge. D. Follow-up care: The patient is now under the care of the [facility]. They are picking him up at 10:30 this morning on the date of discharge and taking him [place] through [facility]. He does qualify for short-term respite at the [facility] and is waiting for a bed. We have also made a SPOA application with the [facility] and they are working on getting him an apartment. The patient does know that he needs to attend an intake also with the [facility]. E. Substance abuse follow-up: The patient is referred to the [facility] for substance abuse treatment. We did not offer his FDA approved medications for alcohol use disorder as this is currently in remission. HOSPITAL COURSE - PART A: Reason for admission: The patient is a 36-year-old, , white male with a history of severe depression and anxiety who was just discharged from this unit on the 19 of June due to suicidal ideations, who is now transferred back from the ICU following an overdose on Seroquel and Gabapentin. The patient relayed at the time that he felt anxious after discharge and had recurrent panic attacks and intrusive ego dystonic thoughts, including harming his if he found out that she was cheating on him. He did spend time with his on the day before discharge and she wanted to take him both to his probation and [facility] appointments; however, when she drove him to [facility] to get him some food, he became panicky and refused to get out of the car. His went in alone and eventually dropped him off at his short stay motel which is emergency housing through [facility]. Again, he woke up on Sunday morning feeling panicky, tried to contact his but she was not available, and he impulsively took an overdose of 10 tablets of Seroquel XR 400 mg and about 42 of his Gabapentin 600 mg strength tablets. Thereafter he panicked and called 911 for help, and was brought to the hospital where he was admitted to the medical service. HOSPITAL COURSE - PART B: Psychiatric treatment rendered: The patient was admitted to the Adult [facility]al [facility] Unit and placed on q.15 minute checks for his own safety. We did resume Seroquel XR 400 mg. his Effexor XR was increased initially from 150 to 225 and ultimately to 300 mg which was effective for anxiety. I discontinued his Metoprolol and replaced it with Clonidine 0.1 mg three times a day which had the additional benefit of controlling his blood pressure and reducing his anxiety slightly. We noted on testing that he had extremely elevated triglycerides which necessitated the resumption of Lipitor and Tricor. I noted that his vitamin D levels were low, so I added vitamin D 5,000 units daily. Because of the mix of high blood pressure readings and anxiety, we did check him for pheochromocytoma; however, his urine labs for catecholamines and metanephrines were both within normal limits. Routine EEG and brain MRI were both within normal limits and did not reveal any neurological cause for his disturbances. I did reduce his Gabapentin from 600 mg to 400 mg t.i.d. as he began to become somewhat oversedated from medications. Ultimately, we tried hard with milieu therapy and other medications to get him doing better, but he continued to endorse suicidal thinking and anxiety with difficulty getting out of his room. This necessitated the ultimate resumption of Clonazepam which is something that this clinician tried to avoid given his history of alcohol abuse. Almost immediately , Royal perked up, started going to groups, started becoming more future oriented and expressing hopeful feelings about the future. He states at this time that he wants to leave the hospital, get in with the ACT team and get a [place] apartment. He is trying to take care of the necessary steps to having his order of protection rescinded so that he can again reside with his children. His was involved in his treatment and came to a family meeting on the 06 of July. She is in support of the discharge plan. At this time , we feel that Royal has improved and that he warrants outpatient intensive treatment through the ACT team; again, they are coming to pick him up. [id number]/CPS #: [id number] ALEX
== END 2017-07-11 10:45 | disposition home or self-care (01) | DRG 885 ==
LOC: BSU 15:15
PROVIDERS: ADMIT Psychiatry & Neurology Psychiatry; ATTEND Psychiatry & Neurology Psychiatry
DX: F33.2 Major depressive disorder, recurrent severe without psychotic features (principal); R45.851 Suicidal ideations; D64.9 Anemia, unspecified; F40.01 Agoraphobia with panic disorder; F10.11 Alcohol abuse, in remission; E78.1 Pure hyperglyceridemia; K21.9 Gastro-esophageal reflux disease without esophagitis; I10 Essential (primary) hypertension; B19.20 Unspecified viral hepatitis C without hepatic coma
CPT/HCPCS: 36415; 70553; 80053; 80061; 81050; 82270; 82306; 82382; 82607; 82746; 83036; 83721; 83835; 84132; 84450; 85025; 86140; 86803; 90847; 90853; 95816; 99222; 99231; 99232; 99238; A9270-GY; A9579

== ENCOUNTER 2017-07-19 15:15 | Emergency (ER) | payer MEDICARE, MEDICAID ==
[2017-07-19 16:13] VITALS: BP 129/83
[2017-07-19] MEDS ORDERED: Clindamycin CAP* 150 MG PO ONE ×2 (18:00→18:01)
--- NOTE | 2017-07-19 18:00 | UC ---
[facility] HPI - HPI Summary HPI Summary: left lower jaw pain and swelling---has poor dentition with multiple broken and decayed teethe - History of Current Complaint Chief Complaint: UCDentalProblem Stated Complaint: TOOTH ACHE Time Seen by Provider: 07/19/17 17:42 Hx Obtained From: Patient Onset/Duration: Gradual Onset, Worse Since - past 2 days Severity: Severe Pain Intensity: 8 Pain Scale Used: 0-10 Numeric Aggravating Factor(s): Chewing Alleviating Factor(s): Nothing Related History: Previous Dental Care on Same Tooth, Swelling - Allergies/Home Medications Allergies/Adverse Reactions: Allergies Allergy/AdvReac Type Severity Reaction Status Date / Time MS Amoxicillin [Amoxicillin] Allergy Rash Verified 07/19/17 16:13 PMH/Surg Hx/FS Hx/Imm Hx Previously Healthy: No GI/ History: Gastroesophageal Reflux Psychological History: Anxiety Other History Of: Negative For: HIV, Hepatitis B, Hepatitis C, Anticoagulant Therapy - Surgical History Surgical History: Yes Surgery Procedure, Year, and Place: LITHROTRIPSY - Family History Known Family History: Positive: Cardiac Disease, Hypertension Negative: Diabetes - Social History Occupation: Unemployed Lives: Alone Alcohol Use: None Substance Use Type: Prescribed Smoking Status (MU): Never Smoked Tobacco Amount Used/How Often: pt has not used tobacco products in last 30 days. Have You Smoked in the Last Year: No - Immunization History Most Recent Influenza Vaccination: unknown Most Recent Pneumonia Vaccination: unknown Review of Systems Constitutional: Negative Skin: Negative Eyes: Negative ENT: Dental Pain Respiratory: Negative Cardiovascular: Negative Gastrointestinal: Negative Genitourinary: Negative Motor: Negative Neurovascular: Negative Musculoskeletal: Negative Neurological: Negative Psychological: Negative Is Patient Immunocompromised?: No All Other Systems Reviewed And Are Negative: Yes Physical Exam Triage Information Reviewed: Yes Appearance: Well-Appearing, Well-Nourished, Pain Distress Vital Signs: Initial Vital Signs Temp 98.3 F 07/19/17 16:08 Pulse 103 07/19/17 16:08 Resp 18 07/19/17 16:08 BP 129/83 07/19/17 16:08 Pulse Ox 98 07/19/17 16:08 Vital Signs Reviewed: Yes Eye Exam: Normal Eyes: Positive: Conjunctiva Clear ENT Exam: Normal ENT: Positive: Normal ENT inspection, Hearing grossly normal, Pharynx normal, Dental tenderness, Uvula midline. Negative: Nasal congestion, Tonsillar swelling, Tonsillar exudate, Trismus, Hoarse voice, Sinus tenderness Dental Exam: Other Dental: Positive: Percussion Tenderness @, Gross Decay/Caries @, Abscess @ - left lower jaw Neck exam: Normal Neck: Positive: Supple, Nontender, No Lymphadenopathy Respiratory Exam: Normal Respiratory: Positive: Chest non-tender, Lungs clear, Normal breath sounds, No respiratory distress, No accessory muscle use Cardiovascular Exam: Normal Cardiovascular: Positive: No Murmur, Pulses Normal, Brisk Capillary Refill, Tachycardia Musculoskeletal Exam: Normal Musculoskeletal: Positive: Strength Intact, ROM Intact, No Edema Neurological Exam: Normal Neurological: Positive: Alert, Muscle Tone Normal Psychological Exam: Normal Skin Exam: Normal Dental Complaint Course/Dx - Course Course Of Treatment: warm compress, clindamycin, follow with dentist tim - Differential Dx/Diagnosis Provider Diagnoses: Left lower dental pain and abscess Discharge - Discharge Plan Condition: Stable Disposition: HOME Prescriptions: Clindamycin Cap(NF) [Clindamycin Cap 300 mg Cap(NF)] 300 mg PO Q6H #40 cap Patient Education Materials: Dental Abscess (ED), Warm Compress or Soak (ED) Referrals: Jose Griffin MD [Primary Care Provider] - Additional Instructions: Follow at [facility]---To emergency department should symptoms worsen in any way
[2017-07-19] MEDS ORDERED: HYDROcodone/ACETAMIN 5-325 MG* 1 TAB PO ONE ×2 (18:02→18:03)
== END 2017-07-19 18:23 | disposition home or self-care (01) ==
LOC: UCEAST 15:15
DX: K08.89 Other specified disorders of teeth and supporting structures (principal); K04.7 Periapical abscess without sinus; K02.9 Dental caries, unspecified; K21.9 Gastro-esophageal reflux disease without esophagitis; F41.9 Anxiety disorder, unspecified; Z88.1 Allergy status to other antibiotic agents
CPT/HCPCS: 99212; A9270-GY; G0463

== ENCOUNTER 2017-07-21 18:26 | Emergency (ER) | payer MEDICARE, MEDICAID ==
[2017-07-21] MEDS ORDERED: NS 0.9% 1000 ML* 1,000 ML IV ONE (19:23)
[2017-07-21] MEDS ORDERED: Metoclopramide IV* 5 MG/ML 2 ML VIAL IV SLOW PU ONE (19:24)
[2017-07-21] MEDS ORDERED: Morphine INJ* 4 MG/ML 1 ML CARPUJECT IV ONE (19:25)
[2017-07-21] MEDS ORDERED: Vancomycin(*) 1,000 MG in NS 0.9% 250 ML* 250 ML IVPB ONE (19:26)
[2017-07-21] MEDS ORDERED: Morphine INJ* 4 MG/ML 1 ML SYRINGE (NEW SYRINGE VERSION) ONE (19:42)
[2017-07-21] MEDS ORDERED: Morphine INJ* 4 MG/ML 1 ML SYRINGE (NEW SYRINGE VERSION) IV ONE (20:15)
[2017-07-21 20:18] LABS: ABS Basophils 0.1 10^3/ul (0-0.2); ABS Eosinophils 0.1 10^3/ul (0-0.6); ABS Lymphocytes 1.7 10^3/ul (1.0-4.8); ABS Monocytes 0.6 10^3/ul (0-0.8); ABS Neutrophils 5.1 10^3/ul (1.5-7.7); ABS Nucleated RBC 0 10^3/ul; Eosinophil % 1.5 % (0-6); Hematocrit 39 % (42-52); Hemoglobin 13.1 g/dl (14.0-18.0); Lymphocyte % 22.2 % (25-47); Mean Corpuscular HGB Conc 34 g/dl (31-36); Mean Corpuscular Hemoglobin 27 pg (27-31); Mean Corpuscular Volume 79 fL (80-94); Mean Platelet Volume 7 um3 (7.4-10.4); Nucleated Red Blood Cells % 0; Platelet Count 401 10^3/ul (150-450); Red Blood Count 4.87 10^6/ul (4.0-5.4); Red Cell Distribution Width 15 % (10.5-15); White Blood Count 7.5 10^3/ul (3.5-10.8)
[2017-07-21 20:34] LABS: EGFR Non-African American 104.3 (>60)
[2017-07-21] MEDS ORDERED: Iohexol 300* (CONTRAST) 10 ML SDV IV ONE (20:42)
--- NOTE | 2017-07-21 21:28 | RAD ---
INDICATION: Dental abscess since July 18, 2017 without relief on antibiotics. COMPARISON: No relevant prior exams available on the [facility] PACS for comparison. TECHNIQUE: Multidetector CT base of the skull through mandible with 75 mL Omnipaque 350 IV contrast.. Multiplanar reformation. REPORT: Fragmented LEFT first mandibular molar with soft tissue density and gas within the tooth. Mild enlargement of the surrounding tooth socket involving both the anterior and posterior roots of the tooth. Mild to moderate surrounding soft tissue edema. No loculated soft tissue plane abscess collection evident. Negative for lymphadenopathy by short axis size criteria. Unremarkable parotid and submandibular glands. Unremarkable pharyngeal mucosal space contours and symmetric clear parapharyngeal fat. Clear paranasal sinuses and visualized mastoid air spaces. IMPRESSION: Fragmented LEFT first mandibular molar with soft tissue density and gas within the tooth. Mild enlargement of the surrounding tooth socket involving both the anterior and posterior roots of the tooth. Mild to moderate surrounding soft tissue edema. No loculated soft tissue plane abscess collection evident.
[2017-07-21] MEDS ORDERED: DOXYcycline CAP(*) 100 MG PO ONE (21:45)
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
[2017-07-21 22:34] VITALS: BP 133/82
== END 2017-07-21 22:31 | disposition home or self-care (01) ==
LOC: ED 18:26
DX: K05.10 Chronic gingivitis, plaque induced (principal); K02.9 Dental caries, unspecified; R50.9 Fever, unspecified; K08.89 Other specified disorders of teeth and supporting structures; R06.02 Shortness of breath; R11.0 Nausea; R53.1 Weakness
CPT/HCPCS: 36415; 70487; 80053; 83605; 85025; 86140; 87040; 96365; 96374; 96375; 99282; A9270-GY; J2270; J2765; J3370; Q9967

== ENCOUNTER 2017-08-09 14:21 | Emergency (ER) | payer MEDICARE, MEDICAID ==
[2017-08-09] MEDS ORDERED: Ondansetron INJ* 2 MG/ML VIAL IV ONE (15:49)
[2017-08-09] MEDS ORDERED: Vancomycin(*) 1,000 MG in NS 0.9% 250 ML* 250 ML IVPB ONE (15:49)
[2017-08-09] MEDS ORDERED: NS 0.9% 1000 ML* 1,000 ML IV ONE (15:49)
[2017-08-09] MEDS ORDERED: Morphine INJ* 4 MG/ML 1 ML CARPUJECT IV ONE (15:49)
[2017-08-09] MEDS ORDERED: Morphine INJ* 4 MG/ML 1 ML SYRINGE (NEW SYRINGE VERSION) ONE (16:16)
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
[2017-08-09 18:04] VITALS: BP 145/80
== END 2017-08-09 18:09 | disposition home or self-care (01) ==
LOC: ED 14:21
DX: I10 Essential (primary) hypertension (principal); K04.7 Periapical abscess without sinus; K08.89 Other specified disorders of teeth and supporting structures
CPT/HCPCS: 96374; 96375; 99282; J2270; J2405; J3370

== ENCOUNTER 2017-12-22 01:17 | Emergency (ER) | payer MEDICARE, MEDICAID ==
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
[2017-12-22 02:58] VITALS: BP 120/78
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
== END 2017-12-22 02:55 | disposition home or self-care (01) ==
LOC: ED 01:17
DX: S62.654A Nondisplaced fracture of middle phalanx of right ring finger, initial encounter for closed fracture (principal); W22.8XXA Striking against or struck by other objects, initial encounter; Y92.9 Unspecified place or not applicable; Z88.3 Allergy status to other anti-infective agents
CPT/HCPCS: 73140; 99282

== ENCOUNTER 2018-01-14 18:39 | Observation (INO) | payer MEDICARE, MEDICAID ==
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
[2018-01-14 20:57] LABS: EGFR Non-African American 99.5 (>60)
[2018-01-14 21:16] LABS: ABS Basophils 0.1 10^3/ul (0-0.2); ABS Eosinophils 0.2 10^3/ul (0-0.6); ABS Monocytes 0.5 10^3/ul (0-0.8); ABS Neutrophils 2.1 10^3/ul (1.5-7.7); ABS Nucleated RBC 0 10^3/ul; Eosinophil % 3.1 % (0-6); Hematocrit 24 % (42-52); Hemoglobin 6.9 g/dl (14.0-18.0); Lymphocyte % 41.4 % (25-47); Mean Corpuscular HGB Conc 29 g/dl (31-36); Mean Corpuscular Hemoglobin 17 pg (27-31); Mean Corpuscular Volume 57 fL (80-94); Mean Platelet Volume 8.5 um3 (7.4-10.4); Nucleated Red Blood Cells % 0.1; Platelet Count 323 10^3/ul (150-450); Red Blood Count 4.12 10^6/ul (4.00-5.40); Red Cell Distribution Width 22 % (10.5-15); White Blood Count 4.9 10^3/ul (3.5-10.8)
[2018-01-14] MEDS ORDERED: Pantoprazole IV* 40 MG IV ONE (21:31)
[2018-01-14] MEDS ORDERED: NS 0.9% 1000 ML* 1,000 ML IV ONE (21:31)
[2018-01-14 21:38] LABS: Hematocrit for Retic CNT 23 % (42-52)
[2018-01-14 21:49] LABS: INR 1.09 (0.77-1.02)
[2018-01-15] MEDS ORDERED: Acetaminophen TAB* 325 MG ONE (00:09)
[2018-01-15] MEDS ORDERED: Acetaminophen TAB* 325 MG PO ONE (00:11)
--- NOTE | 2018-01-15 01:42 | HP ---
H&P (Free Text) History and Physical: PCP: Caroline Griffin MD previous PCP: Obi Mckeon MD of [place], [place] Date/Time: 01/15/2018 0240 CC: fatigue, generalized weakness HPI: Mr Booth is a 37YO male HX esophageal ulcers, recurrent anemia requiring transfusion, HTN, anxiety/depression, & bipolar disorder who began feeling fatigued and generally weak 2 weeks ago associated with syncope while urinating, recurrent near-syncope, SOB worse with exertion, spinning dizziness & light-headedness, but no chest pain, black or bloody stools/emesis or other issues. He has had this previously in [place] prior to moving here and has had recurrent C-scopes and EGDs with the only finding reportedly being esophageal ulcers. He states he has been transfused "13 or 14 times". He has not been taking any aspirin, ibuprofen, or naproxen. PMedHx esophageal ulcers recurrent anemia HTN anxiety/depression bipolar disorder Ambulatory Orders Cholecalciferol TAB* [Vitamin D TAB*] 5,000 units PO DAILY #150 tab 07/11/17 Fenofibrate(NF) [Tricor(NF)] 160 mg PO DAILY #30 tab 07/11/17 Omeprazole CAP* [Prilosec CAP* 20 MG] 40 mg PO 0630 #60 cap.dr 07/11/17 Venlafaxine EXT RELEASE CAP* [Effexor Xr CAP*] 30 mg PO QAM #120 cap.sr cloNIDine TAB* [Catapres 0.1 MG TAB*] 0.1 mg PO TID #90 tab 07/11/17 clonazePAM TAB(*) [Klonopin TAB(*)] 1 mg PO TID #90 tab MDD 3 07/11/17 QUEtiapine XR TAB* [Seroquel Xr 200 TAB*] 200 mg PO BEDTIME 01/14/18 Allergies amoxicillin Allergy (Verified 12/22/17 01:27) Unknown Reaction Details PSurgHx multiple C-scopes & EGDs SocHx: denies tobacco, alcohol, & recreational drug HX; moved to the [facility] Jul 2016; disabled from his anxiety/depression; full code status FamHx: Mother: passed age 58 2nd leukemia; Father: passed in his mid-50s, murdered, HX HTN; 3 sisters/1 brother: alive, healthy ROS: as above, otherwise reviewed and all were negative vitals: Vital Signs Temp 36.6 C 01/15/18 02:53 Pulse 81 01/15/18 02:53 Resp 13 01/15/18 02:53 BP 132/90 01/15/18 02:53 Pulse Ox 97 01/15/18 02:53 Intake & Output 01/14/18 01/14/18 01/15/18 11:59 23:59 11:59 Intake Total 1000 Balance 1000 Weight 88.451 kg Intake: IV Fluids 1000 Constitutional: NAD, normally developed, well-nourished white male HEENM: atraumatic; sclera/conjunctiva: anicteric/clear; hearing: clinically intact; oropharynx: clear, mucosa tacky Neck: soft tissue: non-tender; thyroid: normal Pulmonary: clear to auscultation bilaterally, good aeration, no accessory muscle use CV: RR/RR, normal S1S2, no carotid bruit, no jugular venous distention, 2+ B DP/ PT, no edema Abdominal: soft, non-distended, non-tender, no rebound/guarding/rigidity, normoactive bowel sounds, no hepatosplenomegaly or masses, no costovertebral angle tenderness Musculoskeletal: general: grossly intact, non-tender Integumental: pale, otherwise normal appearance and texture of exposed skin Psychiatric orientation: AA&O to PPS affect: calm mood: cooperative eye contact: fair to good content: reliable responses: timely insight: fair Testing: Lab Results 01/14/18 01/14/18 01/14/18 Range/Units 20:23 20:23 20:23 WBC 4.9 (3.5-10.8) 10^3/ul RBC 4.12 (4.00-5.40) 10^6/ul RBC (Retic) 4.10 L (4.6-6.2) 10^6/ul Hgb 6.9 L (14.0-18.0) g/dl Hct 24 L (42-52) % HCT (Retic) 23 L (42-52) % MCV 57 L (80-94) fL MCH 17 L (27-31) pg MCHC 29 L (31-36) g/dl RDW 22 H (10.5-15) % Plt Count 323 (150-450) 10^3/ul MPV 8.5 (7.4-10.4) um3 Neut % (Auto) 42.8 (38-83) % Lymph % (Auto) 41.4 (25-47) % York % (Auto) 10.4 H (0-7) % Eos % (Auto) 3.1 (0-6) % Baso % (Auto) 2.3 H (0-2) % Absolute Neuts (auto) 2.1 (1.5-7.7) 10^3/ul Absolute Lymphs (auto) 2.0 (1.0-4.8) 10^3/ul Absolute Monos (auto) 0.5 (0-0.8) 10^3/ul Absolute Eos (auto) 0.2 (0-0.6) 10^3/ul Absolute Basos (auto) 0.1 (0-0.2) 10^3/ul Absolute Nucleated RBC 0 10^3/ul Nucleated RBC % 0.1 Hypochromasia 2+ Anisocytosis 2+ Microcytosis 3+ Retic Count, Calc 2.0 H (0.5-1.5) % Corrected Retic Count 1.0 (0.5-1.5) % Retic Shift Factor 2.0 Retic Production Index 0.50 Immature Retic Fraction 0.40 Mean Retic Volume 75.8 INR (Anticoag Therapy) 1.09 H (0.77-1.02) APTT 27.9 (26.0-36.3) seconds Sodium 139 (135-145) mmol/L Potassium 4.1 (3.5-5.0) mmol/L Chloride 105 (101-111) mmol/L Carbon Dioxide 28 (22-32) mmol/L Anion Gap 6 (2-11) mmol/L BUN 10 (6-24) mg/dL Creatinine 0.86 (0.67-1.17) mg/dL Est GFR ( Amer) 120.4 (>60) Est GFR (Non-Af Amer) 99.5 (>60) BUN/Creatinine Ratio 11.6 (8-20) Glucose 90 (70-100) mg/dL Calcium 9.4 (8.6-10.3) mg/dL Total Bilirubin 0.30 (0.2-1.0) mg/dL AST 12 L (13-39) U/L ALT 12 (7-52) U/L Alkaline Phosphatase 48 (34-104) U/L Total Protein 7.7 (6.4-8.9) g/dL Albumin 4.6 (3.2-5.2) g/dL Globulin 3.1 (2-4) g/dL Albumin/Globulin Ratio 1.5 (1-3) Blood Type Antibody Screen Crossmatch 01/14/18 Range/Units 22:00 WBC (3.5-10.8) 10^3/ul RBC (4.00-5.40) 10^6/ul RBC (Retic) (4.6-6.2) 10^6/ul Hgb (14.0-18.0) g/dl Hct (42-52) % HCT (Retic) (42-52) % MCV (80-94) fL MCH (27-31) pg MCHC (31-36) g/dl RDW (10.5-15) % Plt Count (150-450) 10^3/ul MPV (7.4-10.4) um3 Neut % (Auto) (38-83) % Lymph % (Auto) (25-47) % York % (Auto) (0-7) % Eos % (Auto) (0-6) % Baso % (Auto) (0-2) % Absolute Neuts (auto) (1.5-7.7) 10^3/ul Absolute Lymphs (auto) (1.0-4.8) 10^3/ul Absolute Monos (auto) (0-0.8) 10^3/ul Absolute Eos (auto) (0-0.6) 10^3/ul Absolute Basos (auto) (0-0.2) 10^3/ul Absolute Nucleated RBC 10^3/ul Nucleated RBC % Hypochromasia Anisocytosis Microcytosis Retic Count, Calc (0.5-1.5) % Corrected Retic Count (0.5-1.5) % Retic Shift Factor Retic Production Index Immature Retic Fraction Mean Retic Volume INR (Anticoag Therapy) (0.77-1.02) APTT (26.0-36.3) seconds Sodium (135-145) mmol/L Potassium (3.5-5.0) mmol/L Chloride (101-111) mmol/L Carbon Dioxide (22-32) mmol/L Anion Gap (2-11) mmol/L BUN (6-24) mg/dL Creatinine (0.67-1.17) mg/dL Est GFR ( Amer) (>60) Est GFR (Non-Af Amer) (>60) BUN/Creatinine Ratio (8-20) Glucose (70-100) mg/dL Calcium (8.6-10.3) mg/dL Total Bilirubin (0.2-1.0) mg/dL AST (13-39) U/L ALT (7-52) U/L Alkaline Phosphatase (34-104) U/L Total Protein (6.4-8.9) g/dL Albumin (3.2-5.2) g/dL Globulin (2-4) g/dL Albumin/Globulin Ratio (1-3) Blood Type O Positive Antibody Screen Negative Crossmatch See Detail ECG, personally reviewed: NSR rate 76, inverted T-waves V1-3/III Impression: 37M HX esophageal ulcers, recurrent anemia requiring transfusion, HTN, anxiety/depression, & bipolar disorder presenting with symptomatic anemia of uncertain cause DIAGNOSIS & PLAN Primary symptomatic anemia HX esophageal ulcers w/ normal BUN & negative occult blood : omeprazole 40mg PO BID : 2units pRBCs : telemetry : obtain records from PCP Caroline Griffin MD : consider GI consultation in AM : supplemental oxygen : supportive care Secondary HTN : continue clonidine 0.1mg TID hypertriglyceridemia : continue fenofibrate anxiety/depression : continue venlafaxine & clonazepam bipolar disorder : continue quetiapine Admission Rational: observation for blood transfusion & further observation for symptomatic anemia DVTp: YANNI Code Status: full
[2018-01-15] MEDS ORDERED: Melatonin 3 MG TAB PO PRN (02:41)
[2018-01-15] MEDS ORDERED: Ondansetron ODT TAB* 4 MG PO PRN (02:41)
[2018-01-15] MEDS ORDERED: Acetaminophen TAB* 325 MG PO PRN (02:41)
[2018-01-15 06:48] LABS: Hematocrit 26 % (42-52); Hemoglobin 8.1 g/dl (14.0-18.0); Mean Corpuscular HGB Conc 31 g/dl (31-36); Mean Corpuscular Hemoglobin 19 pg (27-31); Mean Corpuscular Volume 61 fL (80-94); Mean Platelet Volume 8.3 um3 (7.4-10.4); Platelet Count 277 10^3/ul (150-450); Red Blood Count 4.25 10^6/ul (4.00-5.40); Red Cell Distribution Width 28 % (10.5-15)
--- NOTE | 2018-01-15 08:59 | PN ---
Subjective Date of Service: 01/15/18 Interval History: Pt states he is feeling ok. He did eat a little bit of egg this AM. He states he will get mild pain with swallowing food. He has not noticed any blood in his stool. He has not been up and moving around yet this AM to see if he is dizzy. Objective Active Medications: Acetaminophen (Tylenol Tab*) 650 mg PO Q6H PRN PRN Reason: FEVER/PAIN Clonazepam (Klonopin Tab(*)) 1 mg PO TID ANN-MARIE Clonidine HCl (Catapres Tab*) 0.1 mg PO TID ANN-MARIE Docusate Sodium (Colace Cap*) 100 mg PO BID ANN-MARIE Fenofibrate (Tricor(Nf)) 160 mg PO DAILY ANN-MARIE; Protocol Melatonin (Melatonin) 3 mg PO BEDTIME PRN; Protocol PRN Reason: Sleep Omeprazole (Prilosec Cap*) 40 mg PO BID ANN-MARIE Ondansetron HCl (Zofran Odt Tab*) 4 mg PO Q6H PRN PRN Reason: n/v Quetiapine Fumarate (Seroquel Xr Tab*) 200 mg PO BEDTIME ANN-MARIE Venlafaxine HCl (Effexor Xr Cap*) 37.5 mg PO QAM [facility] Vital Signs - 8 hr 01/15/18 01/15/18 01/15/18 01:00 01:16 01:46 Temperature Pulse Rate Respiratory 9 9 8 Rate Blood Pressure 144/94 142/96 (mmHg) O2 Sat by Pulse Oximetry 01/15/18 01/15/18 01/15/18 02:00 02:15 02:16 Temperature Pulse Rate Respiratory 17 8 11 Rate Blood Pressure 131/87 137/92 (mmHg) O2 Sat by Pulse Oximetry 01/15/18 01/15/18 01/15/18 02:21 02:39 02:53 Temperature 97.9 F Pulse Rate 81 Respiratory 10 9 13 Rate Blood Pressure 136/92 132/90 132/90 (mmHg) O2 Sat by Pulse 97 Oximetry 01/15/18 01/15/18 01/15/18 03:33 03:40 05:16 Temperature 98.3 F 98.3 F 97.8 F Pulse Rate 87 87 72 Respiratory 16 16 12 Rate Blood Pressure 146/95 146/95 122/70 (mmHg) O2 Sat by Pulse 100 100 98 Oximetry 01/15/18 07:20 Temperature 97.6 F Pulse Rate 68 Respiratory 16 Rate Blood Pressure 121/69 (mmHg) O2 Sat by Pulse 100 Oximetry Oxygen Devices in Use Now: None Appearance: Young male sitting up on the edge of the bed, NAD Eyes: No Scleral Icterus Ears/Nose/Mouth/Throat: Mucous Membranes Moist Respiratory: Symmetrical Chest Expansion and Respiratory Effort, Clear to Auscultation Cardiovascular: NL Sounds; No Murmurs; No JVD, RRR, No Edema Abdominal: NL Sounds; No Tenderness; No Distention Extremities: No Clubbing, Cyanosis Skin: No Nodules or Sclerosis Neurological: Alert and Oriented x 3 Result Diagrams: 01/15/18 06:30 01/14/18 20:23 Microbiology and Other Data: Microbiology 01/14/18 21:30 Stool Occult Blood (DORIAN) - Final Stool Assess/Plan/Problems-Billing Mr Booth is a 37 yo M who has a h/o anemia in the past requiring blood transfusions, esophageal ulcers, bipolar disorder, anxiety/depression and HTN who presented to the ER with c/o lightheadedness/near syncope and an episode of syncope after urination and was found to have a hemoglobin of 6.9. - Patient Problems (1) Anemia Current Visit: Yes Status: Acute Code(s): D64.9 - ANEMIA, UNSPECIFIED SNOMED Code(s): 703144711 Comment: Pt recieved 2 units PRBC overnight with improvment in his H/H. Pt with very low MCV (change from Fed 2018) and marked anemia. Most likely iron deficiency anemia likley from slow GI bleed. Iron studies pending for this afternoon when repeat H/H drawn. GI consult given pt's history of esophageal ulcers. NPO now. Continue BID omeprazole. (2) Bipolar 2 disorder Current Visit: Yes Status: Acute Code(s): F31.81 - BIPOLAR II DISORDER SNOMED Code(s): 92037190 Comment: Continue seroquel, clonazepam and effexor. (3) HTN (hypertension) Current Visit: Yes Status: Acute Code(s): I10 - ESSENTIAL (PRIMARY) HYPERTENSION SNOMED Code(s): 58496277 Comment: Good control on clonidine. (4) DVT prophylaxis Current Visit: Yes Status: Acute Code(s): WWS6980 - SNOMED Code(s): 025434813 Comment: ambulation (5) Full code status Current Visit: Yes Status: Acute Code(s): Z78.9 - OTHER SPECIFIED HEALTH STATUS SNOMED Code(s): 207086908
[2018-01-15] MEDS: cloNIDine TAB* 0.1 MG PO SCH ×3 (09:00→19:39)
[2018-01-15] MEDS: Omeprazole CAP* 20 MG PO SCH ×2 (09:00→19:40)
[2018-01-15] MEDS: Venlafaxine EXT RELEASE CAP* 37.5 MG PO SCH (09:00)
[2018-01-15] MEDS: clonazePAM TAB(*) 1 MG PO SCH ×3 (09:01→19:40)
[2018-01-15] MEDS: Fenofibrate(NF) 160 MG TAB PO SCH (09:02)
[2018-01-15] MEDS: Docusate CAP* 100 MG PO SCH ×2 (09:02→19:42)
[2018-01-15] MEDS ORDERED: Midazolam* 1 MG/ML 10 ML VIAL (10 MG) ONE (14:40)
[2018-01-15] MEDS ORDERED: fentaNYL* 50 MCG/ML 2 ML VIAL (100 MCG VIAL) ONE (14:40)
[2018-01-15] MEDS ORDERED: diPHENhydraMINE IV* 50 MG/ML 1 ml VIAL (BENADRYL) ONE (15:53)
[2018-01-15 17:19] LABS: Hematocrit 26 % (42-52); Hemoglobin 8.1 g/dl (14.0-18.0)
[2018-01-15] MEDS ORDERED: QUEtiapine XR TAB* 200 MG PO SCH (21:00)
--- NOTE | 2018-01-15 21:11 | CONS ---
CC: Dr. Jose Griffin; Dr. Baldwin; Dr. Madelyn Griffiths * GASTROENTEROLOGY CONSULTATION: DATE OF CONSULT: 01/15/18 PRIMARY CARE PHYSICIAN: Jose Griffin MD HOSPITAL PHYSICIAN: Mariela Baldwin DO REASON FOR CONSULTATION: Iron deficiency anemia. HISTORY OF PRESENT ILLNESS: Mr. Booth is a 37-year-old gentleman with a history of iron deficiency anemia, anxiety, depression, and bipolar disorder, who presented to [facility] ER earlier today with complaints of significant fatigue, lightheadedness and a near syncopal episode. Upon arrival to the emergency room, he was noted to be hemodynamically stable. Upon further questioning, the patient recently moved from [place]. He has had several upper endoscopies and colonoscopies including a capsule endoscopy in the past that have been grossly unrevealing for patient's significant anemia. He was told that he did have esophageal ulcers and an "angry esophagus," which may have contributed to patient's anemia. He has been on omeprazole therapy 40 mg twice daily. He denies alcohol, illicit drug use, as well as a tobacco use. He currently denies abdominal pain, melena, hematochezia, hematemesis. Upon arrival to the ER, he did admit to some nausea and intermittent emesis, however , that has resolved since his admission. He states he feels slightly better after receiving 2 packs of packed red blood cells for his anemia. He denies headaches. Denies family history of gastrointestinal malignancies. Gastroenterology was consulted for further evaluation of the patient's anemia. PAST MEDICAL HISTORY: 1. Iron deficiency anemia. 2. Hypertension. 3. Anxiety. 4. Depression. 5. Bipolar disorder. 6. History of esophageal ulcers. PAST SURGICAL HISTORY: 1. Numerous EGDs and colonoscopies. HOME MEDICATIONS: 1. Vitamin D. 2. TriCor. 3. Prilosec 40 mg twice a day. 4. Venlafaxine. 5. Clonidine. 6. Clonazepam. ALLERGIES: AMOXICILLIN. FAMILY HISTORY: Denies family history of gastrointestinal malignancies. His mother recently in April 2017 at age 58 secondary to leukemia. His father has been passed in his mid 50s due to a murder. He otherwise has 3 sisters and 1 brother who are alive and healthy at this time. SOCIAL HISTORY: He denies tobacco, alcohol, illicit drug use. He moved to [place] from [place] in July 2016. He is currently disabled due to his anxiety and depression. REVIEW OF SYSTEMS: Review of systems on a 14-point scale have been reviewed. All pertinent positives and negatives have been noted above in the HPI. PHYSICAL EXAMINATION: Temperature 97.6, pulse 71, respirations 16, oxygenation 99% on room air, blood pressure 121/71. Generally, the patient is alert and oriented x3, in no acute distress, lying in bed with a flat affect, well- nourished. HEENT: Normocephalic, atraumatic. Extraocular muscles intact. Anicteric sclerae bilaterally. Cardiovascular Exam: Regular rate and rhythm. Pulmonary Exam: Clear to auscultation bilaterally. Abdomen: Slightly obese. Positive bowel sounds in all 4 quadrants, soft, nontender, nondistended. No rebound, guarding, or rigidity. No hepatosplenomegaly. Musculoskeletal: Grossly intact. Extremities: No clubbing, cyanosis, or edema. Neurological: No gross focal deficits are appreciated. LABORATORY AND DIAGNOSTIC: WBC is 5.0, hemoglobin 8.1, hematocrit 26, MCV 61, platelets 277. INR 1.09, PTT 27.9. Sodium 139, potassium 4.1, chloride 105, CO2 28, anion gap 6, BUN 10, creatinine 0.86, iron 15, TIBC 648, percent saturation 2, transferrin 463, ferritin 1.9, total bilirubin 0.30, AST 12, ALT 12, alkaline phosphatase 48, total protein 7.7, vitamin B12 429. ASSESSMENT AND PLAN: Mr. Booth is a pleasant 37-year-old gentleman with significant past medical history of anxiety, depression, bipolar disorder, and iron deficiency anemia, who presented to [facility] ER with symptomatic anemia including a presyncopal episode. His hemoglobin on arrival was noted to be 6.9. He has been transfused 2 units of packed red blood cells. He currently states he feels well. There has been no evidence of gastrointestinal bleeding while he has been admitted into the hospital. He is currently hemodynamically stable. He states he has had several upper endoscopies, colonoscopies including a capsule endoscopy that have been fairly unrevealing for patient's anemia. He did, however, note that he was diagnosed with esophageal ulcers on a distant upper endoscopy. His most recent workup with a inspector [employer] was in 2016 where he had an upper endoscopy, colonoscopy, and a capsule endoscopy. He was told to resume his iron medication , which he is not on at home as an outpatient at this time. Given his history of questionable bleeding esophageal ulcers and symptomatic anemia, we will perform an upper endoscopy later today to evaluate his esophagus as well as for peptic ulcer disease. We will keep the patient n.p.o. Further recommendations will be provided as the patient's clinical course progresses. Thank you, Dr. Baldwin, for allowing us to participate in the care of your patient. If you should have any further questions or concerns, please do not hesitate to contact us. [id number]/[facility] #: [id number] ALEX
--- NOTE | 2018-01-15 23:44 | PRO ---
CC: Dr. Jose Griffin; Dr. Henry Rachel; Dr. Baldwin * GASTROENTEROLOGY OPERATIVE REPORT: DATE OF PROCEDURE: 01/15/18 - ROOM #413 OPERATIVE PROCEDURE: Esophagogastroduodenoscopy to the second portion of duodenum. SURGEON: Madelyn Griffiths DO ANESTHESIA: 1. Midazolam 11 mg IV. 2. Fentanyl 125 mcg IV. 3. Benadryl 50 mg IV. HISTORY OF PRESENT ILLNESS: Royal is a 37-year-old gentleman with a history of anxiety, depression, bipolar disorder and history of severe iron deficiency anemia, who presented to [facility] ER with a presyncopal episode and severe fatigue. His hemoglobin was noted to be at 6.9 on arrival. He is s/ p 2 units of prbcs and hemodynamically stable. He denies any active gastrointestinal bleeding. He does have a history of numerous endoscopies and colonoscopies in the past for anemia. Most recently these were done in late 2015 and were unrevealing for a cause of anemia at that time. He has also had a small bowel capsule endoscopy which was negative per patient's recollection. Gastroenterology was consulted for further evaluation due to history of esophageal ulcers in the past. He denies NSAID use, alcohol or illicit drug use. PREOPERATIVE DIAGNOSES: 1. Severe iron deficiency anemia. 2. History of esophageal ulcers. POSTOPERATIVE DIAGNOSES: 1. Healing linear esophageal ulcers in the mid and distal esophagus with biopsies. 2. Normal-appearing proximal esophagus with biopsies for eosinophilic esophagitis. 3. Medium-sized ulcerated esophageal nodule at 36 cm with biopsies to rule out dysplasia or malignancy. 4. A 2.5 cm short segment likely An's esophagus with 4 quadrant biopsies at every one cm interval. 5. Non-bleeding distal esophageal ulcers. 6. A 1.5 cm hiatal hernia. 7. Mild antral gastritis with CLOtest to rule out H. pylori. 8. Small amount of food residue in the stomach. 9. Mild scalloping in the first portion of the duodenum with biopsies to rule out celiac disease. 10. Normal-appearing second portion of the duodenum with biopsies to rule out celiac disease. RECOMMENDATIONS: 1. We will follow up with biopsy results. 2. We will await the patient's most recent endoscopy, colonoscopy and small bowel capsule endoscopy records. We will hold off on a colonoscopy until these records are reviewed and make further recommendations as necessary given his extensive workup for GI bleeding in the past. In the meantime, we will advance the patient's diet this evening and place him back on a clear liquid diet in the morning in case colonoscopy needs to be performed the following day for further evaluation. 3. Further recommendations will be provided as the patient's clinical course progresses. Case was discussed with Dr. Baldwin. DESCRIPTION OF PROCEDURE: Esophagogastroduodenoscopy was explained in detail to the patient. The risks, benefits, complications, alternatives, and possibilities of missed lesions were explained and understood. Complications included, but were not limited to, reaction to anesthesia, aspiration, increased risk of bleeding, infection, and perforation. All questions were answered. The patient demonstrated understanding of the conversation. Informed consent was obtained. Next, the patient was brought to the endoscopy suite and placed in the left lateral recumbent position where blood pressure, cardiac, and oxygen monitors were applied. The patient was found to be a fit candidate for moderate anesthesia. After adequate IV sedation was achieved, a bite-block was placed. Next, a standard adult Olympus endoscope was inserted per os under direct visualization to the first and second portion of duodenum. The second portion of the duodenum was grossly unrevealing. Entry into the first portion revealed very mild scalloping of the duodenal folds. Several cold forceps biopsies were obtained from these areas to rule out celiac disease. Further withdrawal of the endoscope into the gastric lumen revealed very mild erythema consistent with gastritis of the antrum. CLOtest was performed to rule out H. pylori. Retroflexion was performed revealing a loose gastric cardia sling. There was some food residue still present from previous meal earlier this morning greater than 8 hours ago. Therefore, an entire look could not be obtained of the entire stomach; however, majority of the mucosa was able to be visualized and was normal-appearing. Further withdrawal of the endoscope into the distal esophagus revealed a sliding hiatal hernia from 37.5 cm to 39 cm from the incisors. There was also patchy islands of salmon-like mucosa consistent with An's from 37.5 cm to 36 cm from the incisors. Several 4 quadrant biopsies were obtained from every 1 cm interval. There were a few large distal esophageal ulcers present as well. Some linear healing ulcers were noted in the distal and mid esophagus. The proximal esophagus was normal-appearing. Cold forceps biopsies were obtained from this area to rule out eosinophilic esophagitis, although there was no endoscopic evidence of this. Air was then removed from the patient. Endoscope was removed from the patient. The patient tolerated the procedure well. There were no immediate complications. After a period of observation, the patient was transferred back to the medical floor in stable condition. Thank you, Dr. Baldwin, for allowing us to participate in the care of your patient. If you should have any further questions or concerns, please do not hesitate to contact us. [id number]/[facility] #: [id number] ALEX
[2018-01-16 06:58] LABS: Hematocrit 27 % (42-52); Hemoglobin 8.6 g/dl (14.0-18.0); Mean Corpuscular HGB Conc 31 g/dl (31-36); Mean Corpuscular Hemoglobin 19 pg (27-31); Mean Corpuscular Volume 61 fL (80-94); Mean Platelet Volume 8.6 um3 (7.4-10.4); Platelet Count 278 10^3/ul (150-450); Red Blood Count 4.46 10^6/ul (4.00-5.40); Red Cell Distribution Width 27 % (10.5-15); White Blood Count 4.4 10^3/ul (3.5-10.8)
[2018-01-16] MEDS: clonazePAM TAB(*) 1 MG PO SCH ×3 (08:39→15:01)
[2018-01-16] MEDS: Omeprazole CAP* 20 MG PO SCH (08:40)
[2018-01-16] MEDS: cloNIDine TAB* 0.1 MG PO SCH ×2 (08:41→14:58)
[2018-01-16] MEDS: Venlafaxine EXT RELEASE CAP* 37.5 MG PO SCH (08:41)
[2018-01-16] MEDS: Fenofibrate(NF) 160 MG TAB PO SCH (08:41)
[2018-01-16] MEDS: Docusate CAP* 100 MG PO SCH (08:41)
[2018-01-16] MEDS ORDERED: Iron Sucrose* 200 MG in NS 0.9% 100 ML* 100 ML IVPB ONE (10:00)
--- NOTE | 2018-01-16 15:19 | PN ---
Progress Note - Progress Note Date of Service: 01/16/18 - Gastroenterology Note: Patient seen and examined this afternoon. No new complaints. Continues to remain fatigued. No CP/SOB. No abdominal pain. No nausea/emesis. No rectal bleeding. Vital Signs: Temp Pulse Resp BP Pulse Ox 98.7 F 87 16 132/74 97 01/16/18 11:02 01/16/18 11:02 01/16/18 15:01 01/16/18 11:02 01/16/18 11:02 Physical examination: GENERAL: NAD. AAOx3. Flat affect. CV: RRR. PULM: CTAB. ABDOMEN: Soft, NT/ND. EXTREMITIES: Warm and no edema. Laboratory Results - last 24 hr 01/15/18 01/16/18 17:10 06:27 WBC 4.4 RBC 4.46 Hgb 8.1 L 8.6 L Hct 26 L 27 L MCV 61 L MCH 19 L MCHC 31 RDW 27 H Plt Count 278 MPV 8.6 A/P 37 yo male with bipolar, anxiety and depression with chronic iron- deficiency anemia p/w symptomatic severe anemia. No active GI bleeding. Previous hx of anemia with several EGD's and Colonoscopies, including capsule endoscopies that have been negative. He does have a distant hx of esophageal ulcers. EGD yesterday showed esophagitis, hiatal hernia, healing esophageal ulcers and gastritis. No active bleeding. 1. Iron-deficiency Anemia s/p 2 units of prbcs - stable ~Stable hgb. ~No evidence of GI bleeding. ~EGD yesterday showed hiatal hernia, healing esophageal ulcers, esophagitis and gastritis. Clotest was negative. ~Patient does not want a colonoscopy at this time as he states he has had several in the past and they have been negative. ~May advance diet. ~Receiving IV iron today with iron supplementation as an outpatient. ~He should follow-up in our office in 2 weeks after discharge to complete work- up as an outpatient. We will obtain patient's medical records in the meantime. ~Discussed with Dr. Baldwin. Please call back with any further questions or concerns. Madelyn Griffiths D.O.
[2018-01-16 17:57] VITALS: BP 113/63
--- NOTE | 2018-01-17 03:43 | DS ---
CC: Dr. Griffin * DISCHARGE SUMMARY: DATE OF ADMISSION: 01/15/18 DATE OF DISCHARGE: 01/16/18 PRIMARY CARE PROVIDER: Dr. Griffin. PRINCIPAL DIAGNOSES: 1. Symptomatic anemia. 2. Severe iron deficiency anemia. 3. Esophageal ulcer. SECONDARY DIAGNOSES: 1. Hypertension. 2. Anxiety/depression. 3. Bipolar disorder. DISCHARGE MEDICATIONS: 1. Lipitor 40 mg p.o. daily. 2. Venlafaxine XR 300 mg p.o. daily. 3. Clonazepam 1 mg p.o. t.i.d. 4. Clonidine 0.1 mg p.o. t.i.d. 5. Seroquel 200 mg p.o. q.h.s. 6. Omeprazole 40 mg p.o. daily. 7. Fenofibrate 160 mg p.o. daily. 8. Vitamin D 5000 units p.o. daily. 9. Ferrous sulfate 325 mg p.o. b.i.d. HOSPITAL COURSE: Mr. Booth is a 37-year-old male with a history of anxiety/ depression and bipolar disorder as well as a history of esophageal ulcers and anemia, who presented to the emergency room with complaints of syncopal episode as well as multiple near syncopal episodes. The patient was found to be severely anemic with a hemoglobin of 6.9. The patient was admitted for symptomatic anemia. He received 2 units of packed red blood cells. With this, the patient's hemoglobin is up to 8.6 on the day of discharge. The cause of the patient's anemia is likely secondary to blood loss as well as severe iron deficiency. The patient had labs obtained in June of this year, which revealed his hemoglobin to be around 13 with an MCV of 82. Upon presentation to the emergency room, the patient's hemoglobin was 6.9 and his MCV was severely low at 57. Iron studies during this hospitalization revealed a total iron of 15, TIBC of 648, 2% iron saturation and a ferritin of 1.9. The patient was felt to be severely iron deficient likely secondary to GI blood loss. This is possibly secondary to the esophageal ulcers. It is unclear why this is either present or not healed from previous identification of this issue. The patient does have an HIV-1 and 2 antibody test pending at the time of this dictation. The patient received a dose of Venofer on the day of discharge. He will be discharged on ferrous sulfate 325 mg twice daily. The patient will need to follow up with his primary care provider and have a CBC obtained in the next 1 to 2 weeks to ensure that his hemoglobin is stable. Additionally, followup with GI should be made for possible repeat colonoscopy. The patient states verbally that he has had colonoscopies in the past and states that they were normal; however, I was unable to obtain records of this. Biopsies from the EGD do not reveal any evidence of celiac disease. Squamous and columnar mucosa with mild chronic inflammation is noted within the esophagus. In the proximal esophagus, does reveal mild erosive changes. There is no evidence of eosinophilic esophagitis. Intestinal metaplasia is absent in the distal esophagus biopsy. Of note, the patient has been quite sleepy during this hospitalization. He when awake; however, is responsive and appropriate. The patient will be followed up by the ACT team tomorrow. On the day of discharge, the patient is drowsy, but awake and oriented. His vital signs are stable. Cardiac exam reveals a normal S1, S2 with a regular rate and rhythm. His lungs are clear. His abdomen is soft, nontender, nondistended. He moves all 4 extremities symmetrically. The patient is felt to be stable for discharge home today. FOLLOWUP CONCERNS: The patient is being discharged home today, 01/16/18. ACTIVITY LEVEL: As tolerated. DIET: Regular as tolerated. CONDITION ON DISCHARGE: Stable. The patient is to be seen by Dr. Griffin on 03/28 at 2:20 p.m. and again, a referral to Gastroenterology should be made for probable repeat colonoscopy in the near future to try to identify the source of bleeding. TIME SPENT: 35 minutes were spent discharging this patient. [id number]/[facility] #: [id number] [facility]
[2018-01-17] MEDS ORDERED: CMC:Fenofibrate(NF) 160 MG TAB PO SCH (09:00)
== END 2018-01-16 19:00 | disposition home or self-care (01) ==
LOC: ED 18:39 → MED 01-15 02:39
PROVIDERS: ADMIT Hospitalist; ATTEND Hospitalist
DX: D64.9 Anemia, unspecified (principal); D50.9 Iron deficiency anemia, unspecified; K22.10 Ulcer of esophagus without bleeding; I10 Essential (primary) hypertension; F41.9 Anxiety disorder, unspecified; F31.9 Bipolar disorder, unspecified; R42 Dizziness and giddiness; Z88.0 Allergy status to penicillin; R53.83 Other fatigue
CPT/HCPCS: 36415; 36430; 80053; 82270; 82607; 82728; 83540; 83550; 85014; 85018; 85025; 85027; 85045; 85610; 85730; 86703; 86850; 86900; 86901; 86922; 87077; 88305; 93005; 99156; 99157; 99284; A9270-GY; G0378; J1200; J1756; J2250; J3010; P9040

== ENCOUNTER 2018-01-29 01:55 | Inpatient (IN) | payer MEDICARE, MEDICAID ==
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
[2018-01-29 02:34] LABS: ABS Basophils 0.1 10^3/ul (0-0.2); ABS Eosinophils 0.1 10^3/ul (0-0.6); ABS Lymphocytes 1.6 10^3/ul (1.0-4.8); ABS Monocytes 0.4 10^3/ul (0-0.8); ABS Neutrophils 2.5 10^3/ul (1.5-7.7); ABS Nucleated RBC 0 10^3/ul; Eosinophil % 1.4 % (0-6); Hematocrit 31 % (42-52); Hemoglobin 9.7 g/dl (14.0-18.0); Lymphocyte % 34.7 % (25-47); Mean Corpuscular HGB Conc 31 g/dl (31-36); Mean Corpuscular Hemoglobin 19 pg (27-31); Mean Corpuscular Volume 62 fL (80-94); Mean Platelet Volume 8.2 um3 (7.4-10.4); Nucleated Red Blood Cells % 0.1; Platelet Count 441 10^3/ul (150-450); Red Blood Count 5.03 10^6/ul (4.00-5.40); Red Cell Distribution Width 30 % (10.5-15); White Blood Count 4.6 10^3/ul (3.5-10.8)
[2018-01-29 02:47] LABS: EGFR Non-African American 78.2 (>60)
[2018-01-29 02:50] LABS: INR 1.17 (0.77-1.02)
[2018-01-29] MEDS ORDERED: Al Hydrox/Mg Hydrox/Simet LIQ* 30 ML UDC PO PRN (05:23)
[2018-01-29] MEDS: Vitamin THERAPEUTIC TAB PO SCH (09:17)
[2018-01-29] MEDS: Ferrous Sulfate TAB* 325 MG PO SCH ×2 (09:17→21:39)
[2018-01-29] MEDS: Omeprazole CAP* 20 MG PO SCH (09:17)
[2018-01-29] MEDS: Cholecalciferol TAB* 1000 UNITS PO SCH (09:17)
[2018-01-29] MEDS: cloNIDine TAB* 0.1 MG PO SCH ×3 (09:17→21:39)
[2018-01-29] MEDS: Venlafaxine EXT RELEASE CAP* 75 MG PO SCH (09:18)
[2018-01-29] MEDS: clonazePAM TAB(*) 1 MG PO SCH ×3 (09:19→21:38)
[2018-01-29] MEDS: CMC:Fenofibrate(NF) 160 MG TAB PO SCH (09:20)
[2018-01-29] MEDS: Acetaminophen TAB* 325 MG PO PRN ×2 (10:34→21:42)
--- NOTE | 2018-01-29 16:34 | HP ---
H&P (Free Text) History and Physical: JUSTIFICATION FOR ADMISSION: Patient presented to emergency room with passive suicidal ideation no plan, worsening feeling of tiredness and low energy. He requires inpatient psychiatric admission in order to provide treatment and stabilization and observe as he is a danger to himself. CHIEF COMPLAINT: "I am tired, can be due to my anemia HISTORY OF THE PRESENT ILLNESS: Patient is a 37 y/o male, single, living by himself struggling with stable housing, currently unemployed and on disability with history of Panic disorder, generalized Anxiety Disorder and Mood Disorder. Patient was admitted to inpatient unit for worsening of feelings depressed, feeling tired, low in energy , hypersomnia. Patient has been intermittently compliant with his treatment and reportedly has missed appointments with ACT team worker and has been avoided them for unknown reason. Patient reportedly has been struggling with housing situation and substance abuse and currently in a drug court and is reported to have relapses that can trigger his arrest. Patient reports no manic symptoms. Patient reports no psychotic symptoms. Patient reports passive suicidal but no intent or plan, no homicidal ideation on the unit. Patient continued to exhibit behavior that is in control. Patient on the unit was compliant with medications and continued to insist on taking Klonopin and not interested in therapy to help with his depression or anxiety. Patient continues to rationalize his need for Klonopin and cannot function without it. Patient did not provide urine for toxicology and is reported to have relapse on substance while being in drug court. Patient behavior is in control on the unit will continue to monitor symptoms and need for adjustment in medications. PAST PSYCHIATRIC HISTORY: Patient was hospitalized multiple times in [place] or [place] near the [place]. In the last 2 years, he has been in 4 different facilities including this one. Patient last hospitalization was in June twice for suicidal ideation first time and a suicidal attempt via overdosing the next time and called 911. He has had medication trials of venlafaxine, clonazepam, paroxetine, lorazepam, Zyprexa, sertraline, Abilify. Patient was persistent on being prescribed Klonopin to be prescribed that has helped his panic attacks and agoraphobia. No homicidal ideation or intent reported. No access to firearm reported. Patient has been in Drug court but has been having difficult time with Drug court and has reportedly had relapses. Royal denies history of abuse. He does have deaths in his family that have been traumatic for him including his mother who on 05/08/17 while he was incarcerated. His dad was murdered in 2010. SUBSTANCE ABUSE HISTORY: The patient reports rare alcohol use and that when he does drink, he has legal problems but he denies alcoholism. He denies other substance use. We are awaiting a urine drug screen. MEDICAL HISTORY: Esophageal bleed/ulcers secondary to GERD. He reports having multiple blood transfusions due to this. ALLERGIES: Amoxicillin FAMILY PSYCHIATRIC HISTORY: Royal reports his mother and both of his grandmothers suffered from anxiety and agoraphobia. He states his mother and maternal grandmother have been hospitalized in psychiatric institutions multiple times due to "nervous breakdowns." He denies knowledge of suicide in the family. FAMILY/PSYCHOSOCIAL HISTORY: Patient was born and raised in the [facility]. He left high school in 9th grade. He stated that he should have been in 12th or 11th grade by that time but he had to repeat grades multiple times due to school avoidance and disruptive behavior. He later obtained his GED. Royal has a daughter in [place] named Valarie who is about 10 years old. He has been paying child support for her throughout her life but has not met her. Royal and his girlfriend Sherley met while she worked as a travel nurse in [place] few years ago, she lived there. Briefly they reconnected via social media April 2016 and he found out he had fathered a daughter who is now over 3 years old. He moved to the [facility] with their daughter and Sherley's daughter Brijesh from a previous relationship. Royal reports he has been on disability since 2008 due to anxiety with agoraphobia. He states he has tried to work part-time jobs. 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 LEGAL HISTORY: The patient was released from [facility] on 05/24/17. He had DUI charges last year and order of protection against the girlfriend and her children. He alluded to legal consequences due to alcohol use in the past while living in [place]. Patient is currently in Drug court and is reported to have relapse on drugs during that which can result in his arrest again. REVIEW OF SYSTEMS: Patients review of symptoms was negative for any physical complaint. Patient vital signs has been stable. Patients ED physical exam was reviewed which is grossly normal with no active medical problem other than recovering anemia and history of GI bleed/GERD/Esophageal ulcer. Physical Exam Summary: Appearance: Well-appearing, Well-nourished, lying in bed comfortable Skin: Warm, dry, no obvious rash Eyes: sclera anicteric, no conjunctival pallor ENT: mucous membranes moist Neck: deferred Respiratory: No signs of respiratory distress Cardiovascular: Appears well perfused, pulses are nml Abdomen: deferred Musculoskeletal: Moving all 4 extremities without obvious discomfort Neurological: Awake and alert, mentation is normal, speech is fluent and appropriate MENTAL STATUS EXAMINATION: Appearance: fairly kempt, calm, making fair eye contact, not appear to be in any distress, fair hygeine Behavior: superficially cooperative, manipulative Gait: normal Abnormal motor activity: none Speech: slow likely due to Klonopin and normal rhythm, volume and tone Mood: tired Affect: blunt Thought process: goal directed Thought Content: Suicidal/Homicidal ideation: passive si, no hi Delusions: none Obsessions: none Phobia: none Perceptual disturbance: none Attention: fair Orientation: grossly intact Concentration: limited Memory: fair Insight: fair Judgment: poor Impulse control: fair IMPRESSION: Patient with history of mood disorder, panic disorder and ADAN . Patient currently admitted due to worsening of depression and passive suicidal ideation questionable due to anemia . Patient has also struggled with relapse on drug use and has been avoiding ACT team staff and likely be arrested due to violations with drug court. Patient will be stabilized and observed on the unit for being danger to self and others while on inpatient unit for medication adjustments and therapy. DIAGNOSES: Mood disorder unspecified, Substance Abuse, Panic disorder, Anemia secondary to GI Bleed PLAN: Admit to U on Q 15 min observation. Patient is full code. Patient is on voluntary admission status Integrate patient into the milieu individual and group psychotherapy MMPI and psychological consult with Dr. Pozo. Social work consult for therapy and discharge planning Will hold family meeting with parents to increase Data base. Patient gave informed consent to start the following medications: Patient continued on his current medications. Patient was educated about manager terminal Klonopin use and its side effects. Patient was resistant to any change in Klonopin and wanted to continue with that. Patient reported that he is unable to function with out it. Will continue to monitor and f/u for improvement and side effects. Vic Griffin MD Attending Psychiatrist
[2018-01-29] MEDS ORDERED: Atorvastatin* 40 MG TAB PO SCH (17:00)
[2018-01-29] MEDS ORDERED: QUEtiapine XR TAB* 200 MG PO SCH (21:00)
[2018-01-30] MEDS: Omeprazole CAP* 20 MG PO SCH (06:30)
[2018-01-30 09:29] VITALS: BP 114/73
[2018-01-30] MEDS: cloNIDine TAB* 0.1 MG PO SCH ×2 (09:36→14:03)
[2018-01-30] MEDS: Cholecalciferol TAB* 1000 UNITS PO SCH (09:36)
[2018-01-30] MEDS: Ferrous Sulfate TAB* 325 MG PO SCH (09:36)
[2018-01-30] MEDS: Vitamin THERAPEUTIC TAB PO SCH (09:38)
[2018-01-30] MEDS: CMC:Fenofibrate(NF) 160 MG TAB PO SCH (09:38)
[2018-01-30] MEDS: clonazePAM TAB(*) 1 MG PO SCH ×2 (09:41→14:03)
[2018-01-30] MEDS: Venlafaxine EXT RELEASE CAP* 75 MG PO SCH (09:42)
--- NOTE | 2018-01-30 12:02 | DS ---
Subjective - Subjective Service Types: [id number] [facility] Day Mgmt simple under 30 min Discharge Date: 01/30/18 Subjective: JUSTIFICATION FOR ADMISSION: Patient presented to emergency room with passive suicidal ideation no plan, worsening feeling of tiredness and low energy. He requires inpatient psychiatric admission in order to provide treatment and stabilization and observe as he is a danger to himself. CHIEF COMPLAINT: "I am tired, can be due to my anemia HISTORY OF THE PRESENT ILLNESS: Patient is a 37 y/o male, single, living by himself struggling with stable housing, currently unemployed and on disability with history of Panic disorder, generalized Anxiety Disorder and Mood Disorder. Patient was admitted to inpatient unit for worsening of feelings depressed, feeling tired, low in energy , hypersomnia. Patient has been intermittently compliant with his treatment and reportedly has missed appointments with ACT team worker and has been avoided them for unknown reason. Patient reportedly has been struggling with housing situation and substance abuse and currently in a drug court and is reported to have relapses that can trigger his arrest. Patient reports no manic symptoms. Patient reports no psychotic symptoms. Patient reports passive suicidal but no intent or plan, no homicidal ideation on the unit. Patient continued to exhibit behavior that is in control. Patient on the unit was compliant with medications and continued to insist on taking Klonopin and not interested in therapy to help with his depression or anxiety. Patient continues to rationalize his need for Klonopin and cannot function without it. Patient did not provide urine for toxicology and is reported to have relapse on substance while being in drug court. Patient behavior is in control on the unit will continue to monitor symptoms and need for adjustment in medications. PAST PSYCHIATRIC HISTORY: Patient was hospitalized multiple times in [place] or [place] near the [place]. In the last 2 years, he has been in 4 different facilities including this one. Patient last hospitalization was in June twice for suicidal ideation first time and a suicidal attempt via overdosing the next time and called 911. He has had medication trials of venlafaxine, clonazepam, paroxetine, lorazepam, Zyprexa, sertraline, Abilify. Patient was persistent on being prescribed Klonopin to be prescribed that has helped his panic attacks and agoraphobia. No homicidal ideation or intent reported. No access to firearm reported. Patient has been in Drug court but has been having difficult time with Drug court and has reportedly had relapses. Royal denies history of abuse. He does have deaths in his family that have been traumatic for him including his mother who on 05/08/17 while he was incarcerated. His dad was murdered in 2010. SUBSTANCE ABUSE HISTORY: The patient reports rare alcohol use and that when he does drink, he has legal problems but he denies alcoholism. He denies other substance use. We are awaiting a urine drug screen. MEDICAL HISTORY: Esophageal bleed/ulcers secondary to GERD. He reports having multiple blood transfusions due to this. ALLERGIES: Amoxicillin FAMILY PSYCHIATRIC HISTORY: Royal reports his mother and both of his grandmothers suffered from anxiety and agoraphobia. He states his mother and maternal grandmother have been hospitalized in psychiatric institutions multiple times due to "nervous breakdowns." He denies knowledge of suicide in the family. FAMILY/PSYCHOSOCIAL HISTORY: Patient was born and raised in the [facility]. He left high school in 9th grade. He stated that he should have been in 12th or 11th grade by that time but he had to repeat grades multiple times due to school avoidance and disruptive behavior. He later obtained his GED. Royal has a daughter in [place] named Valarie who is about 10 years old. He has been paying child support for her throughout her life but has not met her. Royal and his girlfriend Sherley met while she worked as a travel nurse in [place] few years ago, she lived there. Briefly they reconnected via social media April 2016 and he found out he had fathered a daughter who is now over 3 years old. He moved to the [facility] with their daughter and Sherley's daughter Brijesh from a previous relationship. Royal reports he has been on disability since 2008 due to anxiety with agoraphobia. He states he has tried to work part-time jobs. 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 LEGAL HISTORY: The patient was released from [facility] on 05/24/[facility]. He had DUI charges last year and order of protection against the girlfriend and her children. He alluded to legal consequences due to alcohol use in the past while living in [place]. Patient is currently in Drug court and is reported to have relapse on drugs during that which can result in his arrest again. REVIEW OF SYSTEMS: Patients review of symptoms was negative for any physical complaint. Patient vital signs has been stable. Patients ED physical exam was reviewed which is grossly normal with no active medical problem other than recovering anemia and history of GI bleed/GERD/Esophageal ulcer. Physical Exam Summary: Appearance: Well-appearing, Well-nourished, lying in bed comfortable Skin: Warm, dry, no obvious rash Eyes: sclera anicteric, no conjunctival pallor ENT: mucous membranes moist Neck: deferred Respiratory: No signs of respiratory distress Cardiovascular: Appears well perfused, pulses are nml Abdomen: deferred Musculoskeletal: Moving all 4 extremities without obvious discomfort Neurological: Awake and alert, mentation is normal, speech is fluent and appropriate MENTAL STATUS EXAMINATION ON ADMISSION: Appearance: fairly kempt, calm, making fair eye contact, not appear to be in any distress, fair hygeine Behavior: superficially cooperative, manipulative Gait: normal Abnormal motor activity: none Speech: slow likely due to Klonopin and normal rhythm, volume and tone Mood: tired Affect: blunt Thought process: goal directed Thought Content: Suicidal/Homicidal ideation: passive si, no hi Delusions: none Obsessions: none Phobia: none Perceptual disturbance: none Attention: fair Orientation: grossly intact Concentration: limited Memory: fair Insight: fair Judgment: poor Impulse control: fair DIAGNOSES ON ADMISSION: Mood disorder unspecified, Substance Abuse, Panic disorder, Anemia secondary to GI Bleed Objective - Appearance Appearance: Healthy Appearing Dysmorphic Features: No Hygiene: Normal Grooming: Fairly Well Kept - Behavior Psychomotor Activities: Normal Exhibits Abnormal Movement: No - Attitude and Relatedness Attitude and Relatedness: Superficially Cooperative Eye Contact: Fair - Speech Quality: Unpressured Latencies: Normal Quantity: Appropriate - Mood Patient's Decription of Mood: "Okay" - Affect Observed Affect: Fair Affect Consistent with: Euthymia - Thought Process Patient's Thought Process: Goal Directed Thought Content: No Passive Wish, No Suicidal Planning, No Homicidal Ideation, No Paranoid Ideation - Sensorium Experiencing Hallucinations: No, Sensorium is Clear Type of Hallucinations: Visual: No, Auditory: No, Command: No - Level of Consciousness Level of Consciousness: Alert Orientation: Yes Intact, Yes Orientated to Time, Yes Orientated to Place, Yes Orientated to Person - Impulse Control Impulse Control: Intact - Insight and Judgement Insight and Judgement: Fair - Medication Management Medication Management Adherence: Yes Treatment Course & Assessment Clinical Course & Impression: Patient with history of mood disorder, panic disorder and ADAN . Patient currently admitted due to worsening of depression and passive suicidal ideation questionable due to anemia . Patient has also struggled with relapse on drug use and has been avoiding ACT team staff and likely be arrested due to violations with drug court. Patient was observed on the unit for being danger to self and others while on inpatient unit. Patient was admitted to [facility] on Q 15 min observation. Patient was on voluntary admission status. Patient gave informed consent to continued with his current medications. Patient was educated about fdc Klonopin use and its side effects. Patient was resistant to any change in Klonopin and wanted to continue with that. Patient reported that he is unable to function with out it. Patient was stable on the unit,with behavior being in control and no engagement in self injurious behavior. Patient did not appear in any distress during this hospitalization. Collaterals were obtained from ACT team and patient has been missing appointments intentionally with both ACT team and Drug court. Patient missed his drug screening and also refused to give urine sample for toxicology in the hospital. Patient is manipulative but mood was stable during this hospitalization did not display any sort of dysregulation. No psychosis, no suicidal ideation or behavior. Patient some what knew about warrant out of his arrest and stated today that likely he will be going [facility] to [facility] upon discharge. Patient was discussed with team and as he was not a danger to self and other, did not require acute hospitalization. Patient was planned discharged to follow up with ACT team. Team and patient agreed with the discharge planning. Discharge Planning - Discharge Planning Outpatient Program: ACT team Recommendations for Continuing Care: Medication Management, Psychotherapy, Substance Abuse Counseling Medications: Discharge Medications Atorvastatin Calcium (Lipitor*) 40 mg PO 1700 REPLACED BY [facility] Last Admin: 01/29/18 17:11 Dose: 40 mg Cholecalciferol (Vitamin D Tab*) 5,000 units PO DAILY REPLACED BY [facility] Last Admin: 01/30/18 09:36 Dose: 5,000 units Clonazepam (Klonopin Tab(*)) 1 mg PO TID REPLACED BY [facility] Last Admin: 01/30/18 09:41 Dose: 1 mg Clonidine HCl (Catapres Tab*) 0.1 mg PO TID REPLACED BY [facility] Last Admin: 01/30/18 09:36 Dose: 0.1 mg Fenofibrate (Tricor(Nf)) 160 mg PO DAILY REPLACED BY [facility] Last Admin: 01/30/18 09:38 Dose: Not Given Ferrous Sulfate (Ferrous Sulfate Tab*) 325 mg PO BID REPLACED BY [facility] Last Admin: 01/30/18 09:36 Dose: 325 mg Multivitamins (Theragran Tab*) 1 tab PO DAILY REPLACED BY [facility] Last Admin: 01/30/18 09:38 Dose: 1 tab Omeprazole (Prilosec Cap*) 40 mg PO 0630 REPLACED BY [facility] Last Admin: 01/30/18 06:30 Dose: 40 mg Quetiapine Fumarate (Seroquel Xr Tab*) 200 mg PO BEDTIME REPLACED BY [facility] Last Admin: 01/29/18 21:40 Dose: 200 mg Venlafaxine HCl (Effexor Xr Cap*) 300 mg PO DAILY REPLACED BY [facility] Last Admin: 01/30/18 09:42 Dose: 300 mg Patient was not given any medications as ACT team recommended that they will follow up with the patient outside the hospital Discharge Planning: Prescriptions provided for discharge [x] Yes [] No Follow up care details as per social work arrangements. Patient response to discharge plan: [] eager for discharge [x] agreeable with discharge plan [] ambivalent about discharge [] disagrees with discharge today
== END 2018-01-30 14:00 | disposition home or self-care (01) | DRG 885 ==
LOC: ED 01:55 → BSU 04:30
PROVIDERS: ADMIT Psychiatry & Neurology Psychiatry; ATTEND Psychiatry & Neurology Psychiatry
DX: F39 Unspecified mood [affective] disorder (principal); R45.851 Suicidal ideations; F40.01 Agoraphobia with panic disorder; F41.1 Generalized anxiety disorder; F19.10 Other psychoactive substance abuse, uncomplicated; D50.0 Iron deficiency anemia secondary to blood loss (chronic); K21.9 Gastro-esophageal reflux disease without esophagitis; Z88.1 Allergy status to other antibiotic agents; Z81.8 Family history of other mental and behavioral disorders; Z79.899 Other long term (current) drug therapy
CPT/HCPCS: 36415; 80053; 80061; 80320; 83036; 85025; 85610; 86850; 86900; 86901; 99222; 99284; A9270-GY; G0480

== ENCOUNTER 2018-07-25 16:19 | Emergency (ER) | payer MEDICARE, MEDICAID ==
[2018-07-25 16:30] VITALS: BP 133/93
[2018-07-25 17:16] LABS: Influenza A Molecular NEGATIVE (Negative); Influenza B Molecular NEGATIVE (Negative)
--- NOTE | 2018-07-25 17:26 | UC ---
Throat Pain/Nasal Timothy HPI - HPI Summary HPI Summary: 37-year-old male 37-year-old male comes in with a chief complaint of several days of green rhinorrhea sinus pressure. Overall his symptoms getting worse. [id number] medications only helped a little bit. Last couple weeks he has had some rhinorrhea including some bloody noses which is not normal for him. Some cough but he feels like congestion is in his upper chest but not down in his lungs. Not short of breath. He does have some body aches. - History of Current Complaint Chief Complaint: UCRespiratory Stated Complaint: URI Time Seen by Provider: 07/25/18 17:15 Pain Intensity: 6 - Allergies/Home Medications Allergies/Adverse Reactions: Allergies Allergy/AdvReac Type Severity Reaction Status Date / Time amoxicillin Allergy Unknown Verified 07/25/18 16:30 Reaction Details PMH/Surg Hx/FS Hx/Imm Hx Previously Healthy: Yes Other History Of: Negative For: HIV, Hepatitis B, Hepatitis C, Anticoagulant Therapy - Surgical History Surgical History: Yes Surgery Procedure, Year, and Place: LITHROTRIPSY - Family History Known Family History: Positive: Cardiac Disease, Hypertension Negative: Diabetes - Social History Alcohol Use: None Substance Use Type: Prescribed Substance Use Comment - Amount & Last Used: Pt. in drug court Smoking Status (MU): Never Smoked Tobacco Type: Smokeless Tobacco Amount Used/How Often: pt has not used tobacco products in last 30 days. Have You Smoked in the Last Year: No - Immunization History Most Recent Influenza Vaccination: unknown Most Recent Pneumonia Vaccination: never Review of Systems All Other Systems Reviewed And Are Negative: Yes Constitutional: Positive: Chills Skin: Positive: Negative Eyes: Positive: Negative ENT: Positive: Sore Throat, Nasal Discharge, Sinus Congestion, Sinus Pain/ Tenderness Respiratory: Positive: Cough Cardiovascular: Positive: Negative Gastrointestinal: Positive: Negative Motor: Positive: Negative Neurovascular: Positive: Negative Musculoskeletal: Positive: Negative Neurological: Positive: Negative Psychological: Positive: Negative Is Patient Immunocompromised?: No Physical Exam Triage Information Reviewed: Yes Appearance: No Pain Distress, Well-Nourished, Ill-Appearing - MILD Vital Signs: Initial Vital Signs Temp 98.7 F 07/25/18 16:25 Pulse 102 07/25/18 16:25 Resp 17 07/25/18 16:25 BP 133/93 07/25/18 16:25 Pulse Ox 97 07/25/18 16:25 Vital Signs Reviewed: Yes Eye Exam: Normal Eyes: Positive: Conjunctiva Clear ENT: Positive: Pharyngeal erythema, Nasal congestion, Nasal drainage, TMs normal Neck exam: Normal Neck: Positive: Supple Respiratory: Positive: Lungs clear, Normal breath sounds, No respiratory distress Cardiovascular: Positive: RRR Musculoskeletal Exam: Normal Musculoskeletal: Positive: Strength Intact, ROM Intact Neurological: Positive: Alert, Muscle Tone Normal Psychological Exam: Normal Psychological: Positive: Normal Response To Family, Age Appropriate Behavior Skin Exam: Normal Throat Pain/Nasal Course/Dx - Course Course Of Treatment: Overall with the patient having the recent bloody noses and rhinorrhea duration of symptoms does exceed 10 days. Patient reports that azithromycin usually helps treat his sinus infections. We also discussed symptomatic treatment. Follow-up with primary care doctor as needed. Reevaluate sooner if worse or any questions or concerns. - Differential Dx/Diagnosis Provider Diagnosis: Sinusitis Discharge - Sign-Out/Discharge Documenting (check all that apply): Patient Departure All imaging exams completed and their final reports reviewed: No Studies - Discharge Plan Condition: Stable Disposition: HOME Prescriptions: Azithromyxin BENY (NF) [Z-Beny (Zithromax) 250 mg tabs #6] 2 tab PO .TODAY, THEN 1 DAILY #6 tab Patient Education Materials: Sinusitis (ED) Referrals: Jose Griffin MD [Primary Care Provider] - Additional Instructions: FOLLOW UP WITH YOUR DOCTOR IF NOT COMPLETELY IMPROVED. GET RECHECKED FOR ANY WORSENING OF YOUR CONDITION OR QUESTIONS OR CONCERNS. - Billing Disposition and Condition Condition: STABLE Disposition: Home
== END 2018-07-25 17:30 | disposition home or self-care (01) ==
LOC: UCEAST 16:19
DX: J32.9 Chronic sinusitis, unspecified (principal); Z88.0 Allergy status to penicillin
CPT/HCPCS: 99212; G0463

== ENCOUNTER 2018-09-26 18:43 | Emergency (ER) | payer MEDICARE, MEDICAID ==
--- OUTSIDE RECORDS SUMMARY | 2018-09-26 19:24 | XMS REPORT | Continuity of Care Document ---
:1980 External Reference #:[id number] Author Name Nicole Doran MD, PHD Address [address] [facility], [address] [place] [address] Care Team Providers Name Role Phone Nicole Doran MD, PHD Care Team Information Newborn Photographer Unavailable Nicole Doran MD, PHD Primary Care Physician Unavailable Payers Date Identification Numbers Payment Provider Subscriber Policy Number: [id number] Medicare Royal Booth PayID: [id number] [address] [place] [address] Policy Number: [id number] Medicaid Royal Booth PayID: [id number] [address] [place] [address] Advance Directives Description No Information Available Problems Date Description Provider Status Onset: 05/21/2018 Generalized anxiety disorder Nicole Doran MD, PHD Active Onset: 05/21/2018 Panic disorder without Nicole Doran MD, PHD Active agoraphobia Onset: 05/21/2018 Moderate recurrent major Nicole Doran MD, PHD Active depression Onset: 05/21/2018 Gastro-esophageal reflux disease Nicole Doran MD, PHD Active with esophagitis Onset: 05/21/2018 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, 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 Onset: 05/21/2018 Essential hypertension Nicole Doran MD, PHD Active Onset: 09/11/2018 Tobacco use Nicole Doran MD, PHD Active Onset: 09/11/2018 Psychogenic impotence Nicole Doran MD, PHD Active Onset: 09/11/2018 Tachycardia Nicole Doran MD, PHD Active Onset: 05/21/2018 Iron deficiency anemia Nicole Doran MD, PHD Resolved Resolved: 06/13/2018 Family History Description No Information Available Social History Type Date Description Comments Sex Unknown Tobacco Use Start: Unknown Patient has never smoked Smoking Status Reviewed: 09/11/18 Patient has never smoked Allergies, Adverse Reactions, Alerts Date Description Reaction Status Severity Comments 05/21/2018 Amoxicillin Active Medications Medication Date Status Form Strength Qnty SIG Indications Ordering Provider Venlafaxine Active Caps ER 75mg 90caps 3 by Andreea, HCL ER 019 24HR mouth Nicole, every day MD, PHD Weaning back dose Niacin ER Active Tablets ER 500mg 90tabs 1 tabs by I10 Andreea, (Antihyperlipi 019 mouth Nicole, demic) every day , PHD after meals Clonidine Active Patches 0.1mg/24HR 12Patc Apply 1 Rissa Doran Weekly h Patch To Nicole, The Skin , PHD Weekly Gabapentin Active Tablets 800mg 270tab 06/12-1 by M54.30 Andreea, 019 s mouth Nicole, three , PHD times a day [place]-3 CF Active Capsules 1000mg 180cap 1 cap by F41.1 Andreea, 018 s mouth Nicole, twice a , PHD day with meals D3 Maximum Active Capsules 5000Unit 90caps 1 cap by F41.1 Andreea, Strength 018 mouth Nicole, every day , PHD with food M54.30 B12 Fast 05/21/2018 Active Tablets 5000mcg 90tabs 1 tab by F41.1 Andreea , Dissolve Dispers mouth every Nicole, day , PHD Nac 600 05/21/2018 Active Capsules 600mg 90caps 1 cap by F41.1 Andreea, mouth three Nicole, times a day , PHD after meals Clonazepam Active Tablets 1mg 90tabs take one F41.1 Andreea, tablet by Nicole, mouth three , PHD times a day maximum daily dose 3 reference #: [id number] F41.[address] 40mg 90caps take one [place], capsule by Nicole mouth every , PHD day Clonidine 08/12/2018 - Hx Patches 0.1mg/2 4units 1 patch I1 [place], 09/02/2018 Weekly 4HR weekly 0 MD Nicole, PHD Mucinex 06/13/2018 - Hx Tablets ER 600mg 30tabs 1 tab by J0 Andreea, 09/11/2018 12HR mouth twice a 6. Nicole day 9 , PHD congestion take with lots of fluids Saline Nasal 06/13/2018 - Hx Solution 0.65% 1units 2 sprays J0 Andreea, [place] 09/11/2018 intranasal 6. Nicole, Infants/Childr every 2 hours 9 , PHD ens congestion Naproxen 06/13/2018 - Hx Tablets 250mg 30tabs 1 tab by M5 Andreea, 09/11/2018 mouth twice a 4. Nicole, day as needed 30 , PHD Gabapentin 06/13/2018 - Hx Capsules 400mg 180caps 1-2 by mouth M5 Andreea, 07/05/2018 three times a 4. Nicole, day 30 , PHD [place] 06/13/2018 - Hx Capsules 1gm 180caps 1 cap by E7 Andreea, 09/11/2018 mouth twice a 8. Nicole, day 1 , PHD Niacin ER 06/13/2018 - Hx Tablets ER 500mg 90tabs 1 tabs by E7 Andreea, (Antihyperlipi 09/11/2018 mouth every 8. vickie Rivera) day after 1 , PHD meals Iron Slow 05/21/2018 - Hx Tablets ER 143(45F 30tabs 1 by mouth D5 [place], Release 06/13/2018 e) mg every day 0. Nicole 9 , PHD Metoprolol 05/21/2018 - Hx Tablets ER 50mg 90tabs take 1 tablet I1 Andreea, Succinate ER 08/12/2018 24HR by mouth 0 Nicole, everyday at , PHD bedtime Clonidine HCL - Hx Tablets 0.1mg Take One Unknown 05/21/2018 Tablet By Mouth Three Times A Day Venlafaxine - Hx Caps ER 150mg 180caps take two Andreea, HCL ER 09/11/2018 24HR capsules by lorenzo Rivera MD, PHD day Immunizations Description No Information Available Vital Signs Date Vital Result Comment 09/11/2018 1:40pm BP Systolic 139 mmHg BP Diastolic 98 mmHg Body Temperature 96.8 F Heart Rate 108 /min Respiratory Rate 18 /min Height 71 inches 5'11" Weight 198.00 lb BMI (Body Mass Index) 27.6 kg/m2 BSA (Body Surface Area) 2.10 m2 [place] body weight in kilograms 70 kg O2 % BldC Oximetry 99 % 06/13/2018 11:47am BP Systolic 147 mmHg BP Diastolic 92 mmHg Body Temperature 94.5 F Heart Rate 133 /min Respiratory Rate 20 /min Height 71 inches 5'11" Weight 191.00 lb BMI (Body Mass Index) 26.6 kg/m2 BSA (Body Surface Area) 2.07 m2 [place] body weight in kilograms 70 kg O2 % BldC Oximetry 98 % 05/21/2018 11:08am BP Systolic 136 mmHg BP Diastolic 96 mmHg Body Temperature 97.6 F Heart Rate 97 /min Respiratory Rate 18 /min Height 71 inches 5'11" Weight 198.00 lb BMI (Body Mass Index) 27.6 kg/m2 BSA (Body Surface Area) 2.10 m2 [place] body weight in kilograms 70 kg O2 % BldC Oximetry 97 % Results Test Date Facility Test Result H/L Range Note Laboratory test 05/21/2018 [facility] Thyroid Stim 0.38 uIU/mL N 0.30-4.[address] Hormone [place], [place] [id number] [phone] Free T4 0.88 ng/dL N 0.76-1.46 CBC W/Automated Diff 05/21/2018 [facility] White Blood 6.0 K/uL N 3.4-10.[address] Count [place], [place] [id number] [phone] Red Blood Count 5.33 M/uL N 4.20-5.80 Hemoglobin 14.2 gm/dL N 12.8-17.0 Hematocrit 42.8 % N 38.0-48.0 Mean Cell Volume 80.3 fl N 80.0-96.0 Mean Corpuscular HGB 26.6 pg Low 27.0-33.0 Mean Corpuscular HGB Conc 33.2 g/dL N 31.7-36.0 Platelet Count 314 K/uL N 155-360 Red Cell Distri Width SD 43.3 fl N 36-51 Red Cell Distri Width %CV 15.1 % N 11.6-15.8 Mean Platelet Volume 9.5 fL N 6.6-10.6 Neut% 63.9 % N 33.0-73.0 Lymph % 25.8 % N 20.0-42.0 [place] % 8.4 % N 0.0-10.0 Eo% 1.2 % N 0.0-6.6 Bas% 0.7 % N 0.0-1.1 Neut# 3.83 K/uL N 1.8-7.0 Lymph # 1.54 K/uL N 1.0-4.0 [place] # 0.50 K/uL N 0.0-0.8 Eos # 0.07 K/uL N 0.0-0.5 Baso # 0.04 K/uL N 0.0-0.1 Laboratory 05/21/2018 [facility] Vitamin 15.3 Low 30.0-100.0 2 test finding [address] [facility] D,25-Hydroxy ng/[place] [address] [phone] Sedimentation Rate 5 mm/hr N 0-15 3 Vitamin B12 And 05/21/2018 [facility] Vitamin B12 426 pg/mL N 193-986 Folate [address] [place] [address] [phone] Folic Acid > 20.0 ng/mL High 3.1-17.5 Iron-Tibc-%Sat 05/21/2018 [facility] Serum Iron 87 g/dL N 65-175 [address] [place] [address] [phone] Total Iron Binding Capacity 399 g/dL N 250-450 Transferrin %Saturation 22 % N 12-57 LDL Cholesterol Profile 05/21/2018 [facility] Cholesterol 156 mg/dL <200 4 [address] [place] [address] [phone] Triglycerides 476 mg/dL High <150 5 HDL Cholesterol 29 mg/dL Low >40 6 LDL-Cholesterol TNP mg/dL < 100 7 1 F41.1 D50.9 K21.0 E78.5 2 Vitamin D deficiency has been defined by the [place] [employer] and an Endocrine Society practice guideline as a level of serum 25-OH vitamin D less than 20 ng/mL (1,2). The Endocrine Society went on to further define vitamin D insufficiency as a level between 21 and 29 ng/mL (2). 1. IOM ([place] [employer]). 2010. Dietary reference intakes for calcium and D. [place]: The National Academies Press. 2. Arslan MF, Smith MARTINEZ, Juan J HILL, et al. Evaluation, treatment, and prevention of vitamin D deficiency: an Endocrine Society clinical practice guideline. JCEM. 2010; 96(8):1911-30. Performed at: RN - [facility] [address] [id number] Delivery Room Supervisor: Maral Delatorre MD, Phone: [phone] 3 Method: Sediplast Modified [place]gren 4 Reference Guidelines*: Desirable: ........... < 200 mg/dL Borderline High: ..... 200-239 mg/dL High: ................ >=240 mg/dL * The National Cholesterol Education Program (NCEP) 5 Reference Guidelines*: Normal: ............. < 150 mg/dL Borderline High: .... 150-199 mg/dL High: ............... 200-499 mg/dL Very High: .......... > 500 mg/dL * Source: National Cholesterol Education Program (NCEP) 6 Reference Guidelines*: Low HDL: ..... < 40 mg/dL Normal: ..... 40-60 mg/dL Desirable: ... > 60 mg/dL *The National Cholesterol Education Program(NCEP) 7 (LDL CANNOT BE CALCULATED FOR TRIGS >400 mg/dL) Procedures Date Code Description Status 09/11/2018 88353 EKG-Tracing And Report Completed 06/13/2018 13330 Brief Emotional/Behav Assessment W/ Scoring Doc Per Completed Standard Inst Encounters Type Date Location Provider Dx Diagnosis Office Visit 06/13/2018 Family Medicine Nicole Doran, I10 Essential ( primary) 11:30a Nghia Hull MD, PHD hypertension J06.9 Acute upper respiratory infection, unspecified M54.30 Sciatica, unspecified side E78.1 Pure hyperglyceridemia Z72.0 Tobacco use K21.0 Gastro-esophageal reflux disease with esophagitis F33.1 Major depressive disorder, recurrent, moderate F41.0 Panic disorder [episodic paroxysmal anxiety] F41.1 Generalized anxiety disorder 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 Office Visit 05/21/2018 11:00a Family Medicine Andreea, F41.1 Generalized [place] MD Nicole, anxiety disorder PHD F41.0 Panic disorder [episodic paroxysmal anxiety] F33.1 Major depressive disorder, recurrent, moderate K21.0 Gastro-esophageal reflux disease with esophagitis D50.9 Iron deficiency anemia, unspecified 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 no Metoprolol/beta maryam. Restart the Niacin EKG "Probably normal" repolarization variant, sinus, tachy. Can do a stress test to see if OK to exercise. Follow up 1 week - may stop the clonidine because didn't really help blood pressure and made heart rate worse and switch to amlodipine in a week, but niacin will lower blood pressure too, so start that first - one thing at a time.Follow up:1 week BP follow upR00.0 Tachycardia, unspecifiedNew Orders:Echocardiogram, Exercise Stress, Ordered: 09/11/18Follow up:Follow up 1- 2 week - ok to F/U for BP before stress testF41.0 Panic disorder [episodic paroxysmal anxiety]Z72.0 Tobacco useComments:Need to stop smoking - smoke is clogging up arteries and making circulation worse.K21.0 Gastro-esophageal reflux disease with sgpqovgbuzjY80.21 Male erectile disorderNew Orders: Echocardiogram, Exercise Stress, Ordered: 09/11/18Comments:This is likely a combination of circulation trouble from blood pressure and smoking and a side- effect of the anti-depressant. You can choose to switch from the 300mg of venlafaxine to 225mg whenever you're ready.
--- OUTSIDE RECORDS SUMMARY | 2018-09-26 19:24 | XMS REPORT | Continuity of Care Document ---
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 Nicole Doran MD, PHD Primary Care Physician Unavailable Payers Date Identification Numbers Payment Provider Subscriber Policy Number: [id number] Medicare Royal Booth PayID: [id number] [address] [place] [address] Policy Number: [id number] Medicaid Royal Booth PayID: [id number] [address] [place] [address] Advance Directives Description No Information Available Problems [...] hypertension Nicole Doran MD, PHD Active Onset: 09/20/2018 Bipolar disorder Nicole Doran MD, PHD Active Onset: 09/11/2018 [...] Patient has never smoked Smoking Status Reviewed: 09/20/18 Patient has never smoked Allergies, Adverse Reactions, Alerts Date Description Reaction Status Severity Comments 05/21/2018 Amoxicillin Active Medications Medication Date Status Form Strength Qnty SIG Indications Ordering Provider Benazepril HCL Active Tablets 10mg 30tabs 1 by R00.0 Rissa Doran mouth Nicole, every day , PHD Olanzapine Active Tablets 5mg 30tabs 1 tab by F31.9 Andreea 019 mouth at Nicole, bedtime , PHD Venlafaxine Active Caps ER 75mg 90caps 3 by Andreea, HCL ER 019 24HR mouth Nicole, every day , PHD Weaning back dose Niacin ER Active Tablets ER 500mg 90tabs 1 tabs by I10 Andreea, (Antihyperlipi 019 mouth Nicole, demic) every day , PHD after meals Clonidine Active Patches 0.1mg/24HR 12Patc Apply 1 Rissa Doran Weekly h Patch To Nicole, The Skin , PHD Weekly Gabapentin Active Tablets 800mg 270tab 2-1 by M54.30 Andreea, 019 s mouth Nicole, three , PHD times a day [place]-3 CF Active Capsules 1000mg 180cap 1 cap by F41.1 Andreea, 018 s mouth Nicole, twice a MD, PHD day with meals D3 Maximum Active [...] 90tabs take one F41.1 Andreea, tablet by lorenzo Rivera three , PHD times a day maximum daily dose 3 reference #: [id number] F41.[address] 40mg 90caps take one Andreea, capsule by Nicole mouth every , PHD day Clonidine 08/12/2018 - Hx Patches 0.1mg/2 4units 1 patch I1 Cobb, 09/02/2018 Weekly 4HR weekly 0 MD Nicole, PHD Mucinex 06/13/2018 - Hx Tablets ER 600mg 30tabs 1 tab by J0 Andreea, 09/11/2018 12HR mouth twice a 6. Nicole, day 9 , PHD congestion take with lots of fluids Saline Nasal 06/13/2018 - Hx Solution 0.65% 1units 2 sprays J0 Andreea, [place] 09/11/2018 intranasal 6. Nicole, Infants/Childr every 2 [...] ER 143(45F 30tabs 1 by mouth D5 Cobb, Release 06/13/2018 e) mg every day 0. Nicole 9 , PHD Metoprolol 05/21/2018 - Hx Tablets ER 50mg 90tabs take 1 tablet I1 Andreea, Succinate ER 08/12/2018 24HR by mouth 0 Nicole, everyday at MD, PHD bedtime Clonidine HCL - Hx Tablets 0.1mg Take One Unknown 05/21/2018 Tablet By Mouth Three Times A Day Venlafaxine - Hx Caps ER 150mg 180caps take two Andreea, HCL ER 09/11/2018 24HR capsules by Nicole, mouth every MD, PHD day Immunizations Description No Information Available Vital Signs Date Vital Result Comment 09/20/2018 10:41am BP Systolic 142 mmHg BP Diastolic 91 mmHg Body Temperature 98.1 F Heart Rate 107 /min Respiratory Rate 18 /min Height 71 inches 5'11" Weight 199.00 lb BMI (Body Mass Index) 27.8 kg/m2 BSA (Body Surface Area) 2.10 m2 [place] body weight in kilograms 70 kg O2 % BldC Oximetry 99 % 09/11/2018 1:40pm BP Systolic 139 mmHg BP Diastolic 98 mmHg Body Temperature 96.8 F Heart Rate 108 /min Respiratory Rate 18 /min Height 71 inches 5'11" Weight 198.00 lb BMI (Body Mass Index) 27.6 kg/m2 BSA (Body Surface Area) 2.10 m2 [place] body weight in kilograms 70 kg O2 % BldC Oximetry 99 % 06/13/2018 11:47am BP Systolic 147 mmHg BP Diastolic 92 mmHg Body Temperature 94.5 F Heart Rate 133 /min Respiratory Rate 20 /min Height 71 inches 5'11" Weight 191.00 lb BMI (Body Mass Index) 26.6 kg/m2 BSA (Body Surface Area) 2.07 m2 [place] body weight in kilograms 70 kg O2 % BldC Oximetry 98 % 05/21/2018 11:08am BP Systolic 136 mmHg BP Diastolic 96 mmHg Body Temperature 97.6 F Heart Rate 97 /min Respiratory Rate 18 /min Height 71 inches 5'11" Weight 198.00 lb BMI (Body Mass Index) 27.6 kg/m2 BSA (Body Surface Area) 2.10 m2 [place] body weight in kilograms 70 kg O2 % BldC Oximetry 97 % Results Test Date Facility Test Result H/L Range Note Laboratory test 05/21/2018 [facility] Thyroid Stim 0.38 uIU/mL N 0.30-4.20 [address] [place] [address] [phone] Free T4 0.88 ng/dL N 0.76-1.46 CBC W/Automated Diff 05/21/2018 [facility] White Blood 6.0 K/uL N 3.4-10.[address] Count [place] [id number] [phone] Red Blood Count 5.33 M/uL N 4.20-5.80 [...] 33.0-73.0 Lymph % 25.8 % N 20.0-42.0 [place] % 8.4 % N 0.0-10.0 Eo% 1.2 % N 0.0-6.6 Bas% 0.7 % N 0.0-1.1 Neut# 3.83 K/uL N 1.8-7.0 Lymph # 1.54 K/uL N 1.0-4.0 [place] # 0.50 K/uL N 0.0-0.8 Eos # 0.07 K/uL N 0.0-0.5 Baso # 0.04 K/uL N 0.0-0.1 Laboratory 05/21/2018 [facility] Vitamin 15.3 Low 30.0-100.0 2 test finding [address] D,25-Hydroxy ng/[place] [address] [phone] Sedimentation Rate 5 mm/hr N 0-15 3 Vitamin B12 And 05/21/2018 [facility] Vitamin B12 426 pg/mL N 193-[address] [place] [address] [phone] Folic Acid > 20.0 ng/mL High 3.1-17.5 Iron-Tibc-%Sat 05/21/2018 [facility] Serum Iron 87 g/dL N 65-175 [address] [place] [address] [phone] Total Iron Binding Capacity 399 g/dL N 250-450 Transferrin %Saturation 22 % N 12-57 LDL Cholesterol Profile 05/21/2018 [facility] Cholesterol 156 mg/dL <200 4 [address] [place] [address] [phone] Triglycerides 476 mg/dL High <150 5 HDL Cholesterol 29 mg/dL Low >40 6 LDL-Cholesterol TNP mg/dL < 100 7 1 F41.1 D50.9 K21.0 E78.5 2 Vitamin D deficiency has been defined by the [place] of Medicine and an Endocrine Society practice guideline as a level of serum 25-OH vitamin D less than 20 ng/mL (1,2). The Endocrine Society went on to further define vitamin D insufficiency as a level between 21 and 29 ng/mL (2). 1. IOM ([place] of Medicine). 2010. Dietary reference intakes for calcium and D. [place]: The National Academies Press. 2. Arslan MF, Smith [place], Archie-Gumaro H[place], et al. Evaluation, treatment, and prevention of vitamin D deficiency: an Endocrine Society clinical practice guideline. JCEM. 2010; 96(7):1911-30. Performed at: RN - [facility] [address] [id number] Automotive Sales Representative: Maral Delatorre MD, Phone: [phone] 3 Method: Sediplast Modified [place] 4 Reference [...] mg/dL) Procedures Date Code Description Status 09/11/2018 91631 Brief Emotional/Behav Assessment W/ Scoring Doc Per Completed Standard Inst 09/11/2018 64502 EKG-Tracing And Report Completed 06/13/2018 51713 Brief Emotional/Behav Assessment W/ Scoring Doc Per Completed Standard Inst Encounters Type Date Location Provider Dx Diagnosis Office Visit 09/20/2018 Nicole Clinton, R00.0 Tachycardia , 10:45a Nghia Hull MD, PHD unspecified I10 Essential (primary) hypertension 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 F31.9 Bipolar disorder, unspecified Office Visit 09/11/2018 1:30p Family Aleyda Doran, I10 Essential ( primary) Nghia Rivera MD, hypertension PHD R00.0 Tachycardia, unspecified F41.0 Panic disorder [episodic paroxysmal anxiety] Z72.0 Tobacco use F41.0 Panic disorder [episodic paroxysmal anxiety] K21.0 Gastro-esophageal reflux disease with esophagitis F52.21 Male erectile disorder Office Visit 06/13/2018 11:30a Family Aleyda Doran, I10 Essential ( primary) Nghia Rivera MD, hypertension PHD J06.9 Acute upper respiratory infection, unspecified M54.30 Sciatica, unspecified side E78.1 Pure hyperglyceridemia Z72.0 Tobacco use K21.0 Gastro-esophageal reflux disease with esophagitis F33.1 Major depressive disorder, recurrent, moderate F41.0 Panic disorder [episodic paroxysmal anxiety] F41.1 Generalized anxiety disorder 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 Office Visit 05/21/2018 11:00a Family Aleyda Doran F41.1 Generalized Nghia Rivera MD, anxiety disorder PHD F41.0 Panic disorder [episodic paroxysmal anxiety] F33.1 Major depressive disorder, recurrent, moderate K21.0 Gastro-esophageal reflux disease with esophagitis D50.9 Iron deficiency anemia, unspecified 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 Blood pressure is the force that your blood exerts onthe prajapati of the arteries it flows through, just like water flowing through a garden hose pushes against the hose??s prajapati. Your blood pressure consists of two numbers. ??Systolic is the pressure on blood vessel prajapati during heart beats ,?? says Bhavin Lawson, professor of cardiovascular disease prevention at the [employer]. ??Diastolic is the pressure between beats,?? so it??s lower. When people have high blood pressure??also called hypertension??it??s often because blood vessels are too rigid to expand when the heart pumps. It??s as though the hose were made of glass instead of rubber. 2 Everyone is at risk. Why worry about high blood pressure if you haven??t been diagnosed with it? Because, odds are, you eventually will be. ??Over time, 90 percent of people in this country develop hypertension,?? says Axel Cabral, professor of preventive medicine at the [employer]. That??s because blood pressure typically creeps up as youage. In the Atherosclerosis Risk in Communities study, which followed more than 15,000 Americans aged 45 to 64, average systolic blood pressure erma by five points in five years.1 ??Blood pressures drift upward as people get older and they??re exposed to long-term excess sodium,?? explains Marianna. ??That??s why almost all adults are going to get blood pressures that put them at higher risk for heart disease and stroke.?? But most hypertension is preventable with a healthy diet and exercise, he adds.3 Your risk starts to rise at any blood pressure above ?? normal.?? Doctors used to diagnose patientswith hypertension when their systolic pressure reached NORMAL BLOOD PRESSURE <120/<80 * Recommendations : Healthy lifestyle choices and yearly checks.ELEVATED BLOOD PRESSURE 120-129/& lt;80 * Recommendations: Healthy lifestyle changes, reassessed in 3-6 months.HIGH BLOOD PRESSURE / STAGE 1 130-139/80-89 * Recommendations: 10-year heart disease and stroke risk assessment. If less than 10% risk, lifestyle changes, reassessed in 3-6 months. If higher, lifestyle changes and medication with monthly follow-ups until blood pressure is controlled. HIGH BLOOD PRESSURE / STAGE 2 >140/>90 * Recommendations: Lifestyle changes and 2 different classes of medicine, with monthly follow-ups until blood pressure is controlled.How much diet and exercise can lower your blood pressure Got high blood pressure? You??re in [place].Nearly half of [place] adults now have hypertension, according to recent guidelines from the [place] Heart Association and the [place] College of Cardiology.That means that many people who had ??prehypertension?? according to the old guidelines now have ??stage 1 hypertension.?? Most of them don??t need to start taking drugs to lower their pressure (that depends on other risk factors). Instead, the guidelines recommend a healthy lifestyle.Why? Because it works. Here??s how much your systolic pressure (the higher of your two blood pressure numbers) could fall with diet and exercise, according to the new guidelines:1. Eat a DASH diet: 11 pointsDon??t want to count servings?Start by filling half your plate with fruits and vegetables.A DASH-style diet does it all: protects your heart, piles on the fruits and veggies, and cuts unhealthy carbs. It??s not only low in saturated fat, sugar, and salt, it??s also rich in nutrients like potassium, magnesium, calcium, and fiber.Plus, DASH works for omnivores or vegetarians.2. Exercise: 5 pointsAny kind of exercise helps.All formsof exercise will lower blood pressure, but the best evidence is for aerobic activity. Aim for 90 to 150 minutes a week of aerobics (brisk walking, biking, running, etc.) and/or resistance training (biceps curls, leg presses, etc.).If you??re starting with walking, here??s how to ramp up the intensity gradually.3. Lose weight: 5 pointsDropping extra pounds can lower your pressure.Losing excess weight helps lower blood pressure. Expect about a 1 point drop in systolic pressure for every 2 pounds you lose.4. Cut salt: 5 pointsMost sodium comes from packaged and restaurant foods that don??t even taste salty.To lower blood pressure, cut your sodium by 1,000 milligrams a day, ideally to 1,500 mg a day. Start with these seven foods.Bread. About 100 to 200 mg of sodium per slice is typical. Aditazz and some other brands make it easy to stay at the low end.Cheese. Most types have 150 to 250 mg ofsodium per ounce. Try Norwegian (just 40 to 60 mg) or fresh mozzarella (80 to 100 mg) or just 1 ??slim cut?? or ??thin ?? slice of your favorite variety.Poultry. The salt solution that??s often added to rawchicken or turkey can add 120 mg of sodium to the poultry??s 80 mg of (naturally occurring) sodium. So avoid poultry with labels like ??Contains up to 15% of a solution.??Deli meats. Just 2 oz. can pile 500 to 700 mg of sodium on your sandwich. Get Boar??s Head??s (or another brand??s) ??low-sodium? ? meats that are sliced at the deli counter (about 50 to 80 mg in 2 oz.).Soup. Most soups deliver 600 to 900 mg of sodium per cup. Try Imagine, Grace, Dr. Nuñez??s, Jimena??s Organic, or Plating Department Helper Tarik??s ??Light in Sodium?? or ??Reduced Sodium?? soups instead (200 to 400 mg).Pizza. You can easily get 1,000 mg of sodium in 2 slices. Go light on the cheese, and replace meat with veggies (not olives).Restaurant entre??es. Many pack 1,000 to 2,000 mg of sodium. Save half for later. And add a side salad or other veggies to boost potassium.5. Get more potassium: 4 to 5 pointsAnother reason to eat more vegetables: potassium.The goal: Get 3,500 to 5,000 milligrams of potassium a day. You??ll get the most bang for your calorie anderson with fruits and vegetables. Some examples: Calories Potassium (mg):Baked potato with skin (1 small) 130 750 Beet greens (?? cup cooked) 20 650 Yellowfin tuna (4 oz. cooked) [id number] Sweet potato with skin (1 small) 130 540 Wild Coho salmon (4 oz. cooked) 160 490 Spinach (?? cupcooked) 20 420 Banana (1) 110 420 Low-fat plain yogurt (6 oz.) 110 400 Fat-free milk (1 cup) 80 380 Cantaloupe (??) 50 370 Lentils (?? cup cooked) 120 370 Villela beans ( ?? cup cooked) 120 370 Tomato sauce (?? cup) 30 360 Avocado (?? cup) 120 360 Spinach (2 cups raw) 10 340 Shelled edamame (?? cup cooked) 100 340 Terry or nectarine (1) 60 290 [place] sprouts (?? cup cooked) 30 250 Stuart (1) 70 240 Bennie lettuce (2 cups raw) 10 230 Apple (1) 100 200 6. Limit alcohol: 4 pointsLimiting alcohol helps keep your pressure in check.If you drink, stop at one drink a day for women or two for men.Find this article interesting and useful? Order a copy of Safe & Easy Steps to Lower Your Blood Pressure. Nine out of 10 Americans will eventually have high blood pressure and, with it, an increased risk of stroke, heart attack, diabetes, dementia, and more. Eating the right diet, losing weight, and exercising can keep your pressure under control. And, if you do have hypertension, it can lower your pressureas much as? ?or more than??prescription drugs. This booklet, from the editors of [employer], shows you how. (48 pages)Dr. Doran Can Print this out for you.The information in this post first appeared in [employer] Health[facility] in June 2017.WHAT WORKS? If you have high blood pressure, here??s roughly how much of a drop in systolic pressure you can expect from changes in diet and from exercise.Advice ~ What It Means ~ Typical Drop in Systolic Blood Pressure: Maintain a Normal Weight ~ Lose??or don??t gain??excess weight ~ 5 points for every 10 pounds you lose. Follow a DASH Diet ~ Eat a diet: ?? rich in vegetables & fruits ?? that includes whole grains, low-fat dairy, poultry, fish, beans, nuts, & oils ?? low in sugar & red meat ~ 11 pointsCut Sodium ~ Consume no more than 2,400??milligrams a day (1,500 mg a day lowers pressure even more)~ 5 pointsBoost Potassium ~ Shoot for 3,500 to 5,000 milligrams a day, mostly from fruits and vegetables ~ 4-5 pointsExercise ~ Doat least 30 minutes of aerobic activity (like brisk walking) most days of the week ~ 5 pointsLimitAlcohol ~ Men: No more than 2 drinks a day Women: No more than 1 drink a day ~ 4 vncclxA81.25 Adjustment disorder with mixed disturbance of emotions and cComments:To help lesson mood and anxiety with neutraceuticals - long-term, will take weeks to months to show an effect often: Vitamin D - likely deficient due to harley effect in [place]. Implicated in osteoporosis, osteopenia, fatigue, increased risk of diabetes, and depression/ seasonal affective disorder. Recommend you take 4000 to 5000 IU of Vitamin D3 daily. Can check vitamin D25 level - takes year+ to replace deficiency. Can get capsule or gummy over the counter. [place] 3 - essential fatty acid has a mild moodstabilizing effect. Good supplement for kids and aids brain development. Increases good cholesterol and helps clean plaque out of arteries, also has an anti-inflammatory effect for joints, skin, etc. recommend 1000mg of DHA +EPA daily - capsule or gummy over the counter. N-acetyl Cysteine - current studies show a an anti-agitation, improved clarity of thought effect. Biologically seems to reduce inflammation in nervous system. Studies show 1800mg to 2400mg daily safe. Improvements start at 3 weeks, continue to improve at 12 weeks of taking.F31.9 Bipolar disorder, unspecifiedNew Medication:Olanzapine 5 mg - 1 tab by mouth at bedtimeComments:Start the mood stabilizer once a day at night. Need to get NAC and Vit DFollow up:1-2 week BP and mood recheck
[2018-09-26] MEDS ORDERED: NS 0.9% 1000 ML** 1,000 ML IV ONE (19:43)
[2018-09-26] MEDS ORDERED: LORazepam INJ* 2 MG/ML 1 ML VIAL IV PUSH ONE (19:45)
[2018-09-26] MEDS ORDERED: Lorazepam PYXIS KEY ONE (19:55)
[2018-09-26 20:01] LABS: ABS Basophils 0.2 10^3/ul (0-0.2); ABS Eosinophils 0.1 10^3/ul (0-0.6); ABS Lymphocytes 2.3 10^3/ul (1.0-4.8); ABS Monocytes 1.3 10^3/ul (0-0.8); ABS Neutrophils 7.9 10^3/ul (1.5-7.7); ABS Nucleated RBC 0 10^3/ul; Eosinophil % 0.6 %; Hematocrit 39 % (36-46); Lymphocyte % 19.7 %; Mean Corpuscular HGB Conc 34 g/dL (31-36); Mean Corpuscular Hemoglobin 25 pg (27-31); Mean Corpuscular Volume 76 fL (80-94); Mean Platelet Volume 7.7 fL (7.4-10.4); Nucleated Red Blood Cells % 0; Platelet Count 387 10^3/uL (150-450); Red Blood Count 5.11 10^6 /uL (4.18-5.48); Red Cell Distribution Width 16 % (10.5-15); White Blood Count 11.8 10^3/uL (3.5-10.8)
[2018-09-26 20:39] LABS: Albumin 4.6 g/dL (3.2-5.2); Albumin/Globulin Ratio 1.3 (1-3); BUN/Creatinine Ratio 17.3 (8-20); Calcium 9.7 mg/dL (8.6-10.3); EGFR Non-African American 116.6 (>60); Globulin 3.6 g/dL (2-4); Total Bilirubin 0.7 mg/dL (0.2-1.0); Total Protein 8.2 g/dL (6.4-8.9)
[2018-09-26 20:45] LABS: TSH (Thyroid Stimulating Horm) 1.44 mcIU/mL (0.34-5.60)
[2018-09-26 20:56] VITALS: BP 128/92
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
[2018-09-26 21:46] LABS: Urine Benzodiazepine Screen None Detected (None Detect); Urine Opiates Screen None Detected (None Detect)
== END 2018-09-26 21:31 | disposition home or self-care (01) ==
LOC: ED 18:43
DX: F41.9 Anxiety disorder, unspecified (principal); I10 Essential (primary) hypertension; D64.9 Anemia, unspecified; K21.9 Gastro-esophageal reflux disease without esophagitis; Z88.3 Allergy status to other anti-infective agents
CPT/HCPCS: 36415; 80053; 80307; 82550; 84443; 85025; 86703; 93005; 96361; 96374; 99283; J2060

== ENCOUNTER 2018-12-01 07:39 | Inpatient (IN) | payer MEDICARE, MEDICAID ==
[2018-12-01] MEDS ORDERED: Ondansetron INJ* 2 MG/ML VIAL IV ONE (08:12)
[2018-12-01] MEDS ORDERED: NS 0.9% 1000 ML** 1,000 ML IV ONE (08:12)
[2018-12-01] MEDS ORDERED: Morphine 4 MG/ML VIAL (1 ml) 4 MG/ML VIAL IV ONE ×2 (08:13→11:43)
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
[2018-12-01] MEDS ORDERED: Pantoprazole IV* 40 MG IV SCH (09:00)
[2018-12-01 09:05] LABS: ABS Basophils 0.1 10^3/ul (0-0.2); ABS Eosinophils 0.1 10^3/ul (0-0.6); ABS Lymphocytes 1.7 10^3/ul (1.0-4.8); ABS Monocytes 0.5 10^3/ul (0-0.8); ABS Neutrophils 3.5 10^3/ul (1.5-7.7); Eosinophil % 1.5 %; Hematocrit 38 % (42-52); Hemoglobin 12.5 g/dL (14.0-18.0); Lymphocyte % 29.4 %; Mean Corpuscular HGB Conc 33 g/dL (31-36); Mean Corpuscular Hemoglobin 25 pg (27-31); Mean Corpuscular Volume 76 fL (80-94); Mean Platelet Volume 7.7 fL (7.4-10.4); Platelet Count 393 10^3/uL (150-450); Red Blood Count 5.05 10^6 /uL (4.18-5.48); Red Cell Distribution Width 18 % (10-15); White Blood Count 5.9 10^3/uL (3.5-10.8)
[2018-12-01 09:17] LABS: ALT 15 U/L (7-52); AST 13 U/L (13-39); Albumin 4.1 g/dL (3.2-5.2); Albumin/Globulin Ratio 1.2 (1-3); Alkaline Phosphatase 76 U/L (34-104); Anion Gap 8 mmol/L (2-11); BUN/Creatinine Ratio 7.2 (8-20); Blood Urea Nitrogen 6 mg/dL (6-24); C Reactive Protein < 1.00 mg/L (<8.01); CO2 Carbon Dioxide 26 mmol/L (22-32); Calcium 9.4 mg/dL (8.6-10.3); Chloride 105 mmol/L (101-111); EGFR African American 124.8 (>60); EGFR Non-African American 103.1 (>60); Globulin 3.5 g/dL (2-4); Glucose 96 mg/dL (70-100); Sodium 139 mmol/L (135-145); Total Protein 7.6 g/dL (6.4-8.9)
[2018-12-01 09:39] LABS: Activated Partial Thrombo Time 35.5 seconds (26.0-38.0); INR 1.15 (0.82-1.09)
[2018-12-01 10:03] LABS: Urine Appearance Clear; Urine Bacteria Absent (Absent); Urine Bilirubin Negative (Negative); Urine Blood 1+ (Negative); Urine Color Straw; Urine Glucose Negative (Negative); Urine Ketones Negative (Negative); Urine Nitrite Negative (Negative); Urine Protein Negative (Negative); Urine Red Blood Cell Trace(0-2/hpf) (Absent); Urine Specific Gravity 1.003 (1.010-1.030); Urine Urobilinogen Negative (Negative); Urine White Blood Cell Trace(0-5/hpf) (Absent)
[2018-12-01] MEDS ORDERED: Iohexol 300* (CONTRAST) 10 ML SDV IV ONE (10:41)
[2018-12-01 12:29] LABS: Hematocrit 35 % (42-52); Hemoglobin 11.9 g/dL (14.0-18.0); Mean Corpuscular HGB Conc 34 g/dL (31-36); Mean Corpuscular Hemoglobin 25 pg (27-31); Mean Corpuscular Volume 75 fL (80-94); Mean Platelet Volume 7.5 fL (7.4-10.4); Platelet Count 379 10^3/uL (150-450); Red Blood Count 4.71 10^6 /uL (4.18-5.48); Red Cell Distribution Width 18 % (10-15); White Blood Count 7.4 10^3/uL (3.5-10.8)
[2018-12-01] MEDS ORDERED: Acetaminophen TAB* 325 MG PO PRN (12:36)
[2018-12-01] MEDS ORDERED: Al Hydrox/Mg Hydrox/Simet LIQ* 30 ML UDC PO PRN (12:36)
[2018-12-01] MEDS ORDERED: hydrOXYzine HCL TAB* 25 MG PO PRN (12:38)
[2018-12-01 13:10] LABS: Creatine Kinase 39 U/L (10-223)
[2018-12-01 13:27] LABS: TSH (Thyroid Stimulating Horm) 0.99 mcIU/mL (0.34-5.60)
[2018-12-01] MEDS ORDERED: cloNIDine 0.1 MG PATCH* 0.1 MG/24 HR 7 DAY PATCH TRANSDERM SCH (14:00)
--- NOTE | 2018-12-01 14:10 | HP ---
HISTORY AND PHYSICAL: DATE OF ADMISSION: 12/01/18 TIME OF ADMISSION: 12:30 p.m. PRIMARY CARE PHYSICIAN: Dr. Doran in [place]. CHIEF COMPLAINT: Weakness, abdominal pain, and near syncope. HISTORY OF PRESENT ILLNESS: This is a 38-year-old man with history of esophageal ulcers and anemia who presents to the emergency department with 2 weeks of generalized weakness. He came to the emergency department today because of ongoing weakness and abdominal pain. He also complained that approximately 2 weeks ago, he had some coffee ground emesis. He has continued to feel nauseous and had occasional vomiting since that time, but it does not been bloody or coffee ground. He also complains that he has "blocked out" several times in the past 2 weeks, which all occurred while he was urinating and standing; however, he never fell during these blockout episodes. He rather felt like he was going to pass out. Then, he also had a day last when he fell 8 times without losing consciousness. He explains that he simply felt disoriented and lightheaded that day, but never lost consciousness and he kept falling as he was crossing the street, but was able to continue to get up and keep walking. He had not used any illicit substances or alcohol at any point during this time. Regarding the pain, he says the pain has been ongoing for a few weeks, but it has gotten worse and is located in the suprapubic area without radiation. He is unsure what it feels like. He describes it as a " weird feeling." It is associated with some diarrhea. No fevers and no urinary symptoms. He also notes sleeping more than usual and says he can sleep about 12 hours a day. He also has significant history of anxiety; however, he does not believe that this is contributing to his symptoms. He does; however, complain of many recent social stressors and no recent change in his psych meds. PAST MEDICAL HISTORY: Anxiety, panic disorder, depression, esophageal ulcers. FAMILY HISTORY: He has a history of heart disease in his grandparents. No history of early cardiac disease or sudden cardiac . SOCIAL HISTORY: He does not use cigarettes, drink alcohol, or use illicit drugs. He is on disability for anxiety. He lives in an apartment in [place] alone. REVIEW OF SYSTEMS: As per the HPI, remainder of 14-point review of systems is negative. PHYSICAL EXAMINATION GENERAL: Alert well-appearing young man in no distress. He is calm and pleasant. VITAL SIGNS: Temperature 97.6, heart rate 75, respiratory rate 25, pulse ox 98 % on room air, blood pressure 142/92. HEENT: Pupils are 4 mm bilaterally and reactive to light. No nystagmus. Oral mucosa is dry. No oropharyngeal exudates or erythema. NECK: No JVP. No adenopathy. LUNGS: Clear bilaterally. CHEST: He is in regular rhythm with no murmurs. PMI is nondisplaced. ABDOMEN: Soft, nontender, nondistended. Liver is palpable at the costal margin. He has no tenderness to deep palpation, though he localizes the pain to his suprapubic region. No flank tenderness. No CVA tenderness. EXTREMITIES: No edema, rashes, or ulcers. NEUROLOGIC: His face is symmetric. His strength is 5/5 in all extremities. His sensation is grossly intact. LABORATORY DATA: White blood cell 7.4, hemoglobin 11.9, platelets 379,000. INR 1.15. Sodium 139, potassium 4.0, chloride 105, bicarb 26, BUN 6, creatinine 0.83, glucose 96, lactic acid is 1.3. CRP less than 1. LFTs are unremarkable. Urinalysis is unremarkable. IMAGING: Abdomen and pelvis CT shows mild alveolar consolidation at the basilar segments of the left lower lobe, which may represent atelectasis, inflammatory infiltrate or pulmonary hemorrhage given the clinical context, hepatic steatosis, negative for cirrhosis, patent portal vein, mildly enlarged cephalocaudal spleen, nonspecific circumferential thickening of the distal esophagus and mild colonic diverticulosis without diverticulitis, and a normal appendix is documented. ASSESSMENT AND PLAN: This is a 38-year-old male with history of anxiety and esophageal ulcers, who presents to the emergency department with 2 weeks of a constellation of symptoms including weakness, abdominal pain, lightheadedness and falls. 1. Weakness. His symptoms include feeling lightheaded and generally weak with no objective weakness on exam. He was most concern that this was a reflection of symptomatic anemia again; however, his hemoglobin is 12.5. I am adding a TSH and a CK and UDS. We will also get an EKG and monitor him on telemetry for these complaints. 2. Two weeks of nausea and vomiting, occasional coffee ground emesis and abdominal pain. His CT abdomen and pelvis does not explain these symptoms. His guaiac was negative, which makes GI bleed less likely. His LFTs and lipase are unremarkable, so I am unclear what his abdominal pain and nausea and vomiting have been coming from. I will check stool studies given the diarrhea and treat him symptomatically with antiemetics, Maalox, and IV fluids. 3. History of esophageal ulcers. Continue PPI and switch it to IV. 4. Anxiety and depression. Continue his home doses of clonazepam, gabapentin, hydroxyzine, olanzapine, and venlafaxine. 5. DVT prophylaxis contraindicated in the setting of possible GI bleed. 6. Disposition: Admit to [address] [place] [address] for observation with telemetry and supportive care. [id number]/[facility] #: [id number] MTDD
[2018-12-01] MEDS: clonazePAM TAB(*) 1 MG PO SCH ×2 (14:47→20:53)
[2018-12-01] MEDS: Gabapentin CAP(*) 400 MG PO SCH ×2 (14:47→20:52)
[2018-12-01] MEDS: NS 0.9% 1000 ML** 1,000 ML IV SCH ×2 (14:47→23:32)
[2018-12-01] MEDS ORDERED: Acetylcysteine CAP (RENAL)* 600 MG PO SCH (16:30)
[2018-12-01] MEDS ORDERED: OLANzapine TAB* 5 MG PO SCH (21:00)
[2018-12-02] MEDS ORDERED: Pantoprazole TAB * 40 MG TAB PO SCH (06:30)
[2018-12-02 06:55] LABS: ABS Basophils 0.1 10^3/ul (0-0.2); ABS Eosinophils 0.1 10^3/ul (0-0.6); ABS Lymphocytes 1.7 10^3/ul (1.0-4.8); ABS Monocytes 0.3 10^3/ul (0-0.8); Eosinophil % 2.8 %; Hematocrit 34 % (42-52); Hemoglobin 11.7 g/dL (14.0-18.0); Lymphocyte % 40.6 %; Mean Corpuscular HGB Conc 34 g/dL (31-36); Mean Corpuscular Hemoglobin 26 pg (27-31); Mean Corpuscular Volume 75 fL (80-94); Mean Platelet Volume 8.1 fL (7.4-10.4); Nucleated Red Blood Cells % 0.3; Platelet Count 335 10^3/uL (150-450); Red Blood Count 4.55 10^6 /uL (4.18-5.48); Red Cell Distribution Width 18 % (10-15); White Blood Count 4.3 10^3/uL (3.5-10.8)
[2018-12-02 07:12] LABS: Albumin 3.7 g/dL (3.2-5.2); Albumin/Globulin Ratio 1.2 (1-3); Calcium 8.9 mg/dL (8.6-10.3); EGFR African American 116.7 (>60); EGFR Non-African American 96.4 (>60); Globulin 3.1 g/dL (2-4); Total Bilirubin 0.2 mg/dL (0.2-1.0); Total Protein 6.8 g/dL (6.4-8.9)
[2018-12-02] MEDS: NS 0.9% 1000 ML** 1,000 ML IV SCH ×2 (07:46→15:38)
[2018-12-02] MEDS ORDERED: Valsartan TAB* 40 MG PO SCH (09:00)
[2018-12-02] MEDS ORDERED: Venlafaxine EXT RELEASE CAP* 75 MG PO SCH (09:00)
[2018-12-02] MEDS ORDERED: Metoprolol Succinate XL TAB* 100 MG PO SCH (09:00)
[2018-12-02] MEDS ORDERED: Cholecalciferol TAB* 1000 UNITS PO SCH (09:00)
[2018-12-02] MEDS: clonazePAM TAB(*) 1 MG PO SCH ×2 (09:01→13:59)
[2018-12-02] MEDS: Gabapentin CAP(*) 400 MG PO SCH ×2 (09:02→13:59)
[2018-12-02 14:44] VITALS: BP 135/83
--- NOTE | 2018-12-02 16:20 | ECHO ---
*[facility]* [place] [address] Fax #: [phone] Transthoracic Echocardiogram Patient: Emmy, Height: 72 in / Royal 182.9 cm : 1980 Weight: 192.6 lb / Study Date: 12/02/2018 87.5 kg Age: 38 BP: 123 / 69 Gender: M BMI/BSA: 26.2 kg/m^2 HR: 55 bpm / 2.1 m^2 *Senior Water/Wastewater Engineer: * Marisol Benson [facility] *Referring Physician: * O'Maria C Salomon *Reading Physician: * Shailesh Everett MD Indications: Syncope. History: Anxiety/panic disorder, esophageal ulcers. Syncope. Conclusions Summary: 1. Left ventricle: The cavity size is normal. Wall thickness is mildly to moderately increased. Systolic function is normal. The estimated ejection fraction is 55-60%. Wall motion is normal; there are no regional wall motion abnormalities. 2. Mitral valve: There is trivial regurgitation. 3. Aortic valve: The valve is trileaflet. The leaflets are normal thickness. There is no evidence of stenosis. There is no significant regurgitation. 4. Pericardium, extracardiac: There is no pericardial effusion. Study data: Transthoracic echocardiogram. Procedure: Transthoracic echocardiography was performed. Image quality was good. Complete 2D, spectral Doppler, and color flow Doppler. Patient status: Observation. Patient room number: 402. Rhythm: Normal sinus rhythm. Findings Left ventricle: The cavity size is normal. Wall thickness is mildly to moderately increased. Systolic function is normal. The estimated ejection fraction is 55-60%. Wall motion is normal; there are no regional wall motion abnormalities. Left ventricular diastolic function parameters are normal. Right ventricle: Well visualized. The cavity size is normal. Wall thickness is normal. Systolic function is normal. Ventricular septum: Well visualized. Left atrium: Well visualized. The atrium is normal in size. Right atrium: Chiari network noted. Well visualized. The atrium is normal in size. Atrial septum: Well visualized. Mitral valve: Well visualized. The leaflets are mildly thickened. No echocardiographic evidence for prolapse. There is no evidence of stenosis. There is trivial regurgitation. Aortic valve: Well visualized. The valve is trileaflet. The leaflets are normal thickness. There is no evidence of stenosis. There is no significant regurgitation. Tricuspid valve: Well visualized. The leaflets are normal thickness. There is no evidence of stenosis. Pulmonic valve: Well visualized. The leaflets are normal thickness. There is no evidence of stenosis. There is mild regurgitation. Aorta: The aorta is well visualized. Aortic arch: The aortic arch is appears normal. The aorta is normal. Pericardium: There is no pericardial effusion. No evidence of pleural fluid accumulation. Pulmonary arteries: Well visualized. Systemic veins: Not well visualized. Pulmonary veins: Visualization of the pulmonary venous anatomy is incomplete, but a significant abnormality is unlikely. Measurements Left ventricle Value Ref Aortic valve Value Ref CRISTOPHER, LAX (L) 4.0 cm 4.2 - Scarlet diam, ED 2.5 cm ----- 5.8 Scarlet diam/bsa, ED 1.2 cm/m^2 ----- ESD, LAX 3.3 cm 2.5 - Peak v, S 1.13 m/sec ----- 4.0 VTI, S 23.5 cm ----- FS, LAX (L) 16 % 25 - 43 Mean grad, S 2.0 mm Hg ----- PW, ED, LAX 1.0 cm 0.6 - Peak grad, S 5.0 mm Hg ----- 1.0 LVOT/AV, VTI ratio 0.86 ----- FS (L) 15 % 25 - 43 Mid-wall FS 6 % -------- Mitral valve Value Ref PW, ED 1.0 cm 0.6 - Peak E 1.03 m/sec ----- 1.0 Peak A 0.79 m/sec ----- PW/ID, ED 0.26 -------- Decel time 151 ms ----- E', lat scarlet, TDI (L) 6.9 cm/sec >=10.0 Peak grad, D 4.2 mm Hg -- --- E/e', lat scarlet, TDI 15 -------- Peak E/A ratio 1.3 ----- E', med scarlet, TDI (L) 6.4 cm/sec >=7.0 E/e', med scarlet, TDI 16 -------- Pulmonic valve Value Ref E', avg, TDI 6.7 cm/sec -------- Peak v, S 0.79 m/sec ----- E/e', avg, TDI (H) 15 <=14 Peak grad, S 2.0 mm Hg -- --- LVOT Value Ref Tricuspid valve Value Ref Peak lorena, S 0.93 m/sec -------- TR peak v 2.55 m/sec <=2.8 VTI, S 20.3 cm -------- Peak RV-RA grad, S 26 mm Hg ----- Mean grad, S 2 mm Hg -------- Max TR lorena 2.55 m/sec ----- Ventricular septum Value Ref Aortic root Value Ref IVS, ED (H) 1.5 cm 0.6 - Root diam 3.5 cm <3.8 1.0 Root max diam, ED 3.5 cm <3.8 Right ventricle Value Ref Ascending aorta Value Ref CRISTOPHER, LAX 4.0 cm -------- AAo AP diam, S 3.1 cm ----- CRISTOPHER minor ax, A4C (H) 4.3 cm 1.9 - AAo AP diam/bsa, S 1.5 cm/m^2 ----- mid 3.5 Aortic arch Value Ref Left atrium Value Ref Arch diam 3.2 cm ----- ML dim, A4C 3.5 cm -------- SI dim, A4C 5.0 cm -------- Decending aorta Value Ref Vol/bsa, ES, 1-p 19 ml/m^2 12 - 37 Isadora peak lorena 1.12 m/sec ----- A4C Vol/bsa, ES, A/L 21 ml/m^2 16 - 34 Right atrium Value Ref SI dim, ES 4.4 cm 3.4 - 5.3 ML dim, ES, A4C (H) 4.8 cm 2.6 - 4.4 SI dim, ES, A4C 4.5 cm 3.4 - 5.3 SI dim/bsa, ES, A4C 2.1 cm/m^2 1.8 - 3.0 Estimated RAP 8 mm Hg -------- Legend: (L) and (H) val values outside specified reference range. Prepared and electronically signed by Shailesh Everett MD 12/02/2018 16:19
[2018-12-02 16:29] LABS: Urine Benzodiazepine Screen None Detected (None Detect); Urine Opiates Screen None Detected (None Detect)
[2018-12-02] MEDS ORDERED: Gabapentin CAP(*) 400 MG PO SCH (21:00)
--- NOTE | 2018-12-03 03:12 | DS ---
CC: Dr. Nicole Doran * DISCHARGE SUMMARY: DATE OF ADMISSION: 12/01/18 DATE OF DISCHARGE: 12/02/18 PRIMARY PROVIDER: Dr. Nicole Doran. ATTENDING PHYSICIAN: Dr. Gianna Luciano * (dictated by DORI Dave). PRIMARY DIAGNOSES: 1. Generalized symptomatic weakness. 2. Possible presyncope, unclear etiology SECONDARY DIAGNOSES: 1. Anxiety. 2. Panic disorder. 3. Depression. 4. Esophageal ulcers. STUDIES WHILE IN THE HOSPITAL: Echocardiogram on 12/02/18; systolic function is normal with ejection fraction 55% to 60%, wall motion is normal, there are no regional wall motion deficits. No evidence of acrotic stenosis. No significant regurgitation of aortic valve. Trivial regurgitation of mitral valve. No pericardial effusion. EKG on 12/02/18; normal sinus rhythm, 57 beats per minute, no ST elevations or depressions, isolated T-wave inversion in V1. PERTINENT LABORATORY DATA: TSH 0.99. Urine drug screen negative for opiates, barbiturates, amphetamines, phencyclidine, benzodiazepines, cocaine, and cannabinoids. Hemoglobin was 10.7 on the day of discharge. HISTORY OF PRESENT ILLNESS/HOSPITAL COURSE: Royal Booth is a 38-year-old white male with history of anxiety, panic disorder, depression, esophageal ulcers who presented to the emergency department due to weakness, abdominal pain , and near syncopal events. Please see admitting history and physical dictated by Dr. Debby Butts for further information. During his hospital stay, the patient was monitored on telemetry which demonstrated no arrhythmias. His echocardiogram was normal. He was normotensive during his hospital stay except for one time reading of systolic blood pressure of 96. He was not found to be orthostatic. On the date of discharge, he describes generalized weakness; however, on physical exam, he is with good strength in all extremities and is able to ambulate. He had no feelings of dizziness or lightheadedness on date of discharge. Denied chest pain, difficulty breathing, blurred vision, headache , abdominal pain, nausea, or vomiting. Patient was not orthostatic on date of discharge and believes he drinks at least 8 cups of water per day. Of note, he mentions that he ran out of his home metoprolol and is unable to pay the co-pay of $1.50 for more metoprolol until he has a disability check on the 12/09/18. The patient 3 to 4 days prior to presentation decreased his metoprolol dose from 100 to 50 because he was running out of his metoprolol due to financial reasons. He is provided with a 5-day supply of metoprolol, 100 mg of metoprolol succinate b.i.d., as this is the limitation of our inpatient pharmacy for outpatient prescription. PHYSICAL EXAMINATION: Young white male, sitting upright in hospital bed, appearing in no acute distress, and appearing comfortable. Head: Normocephalic , atraumatic. Eyes: PERRL, sclerae anicteric. ENT: Mucous membranes moist. Neck: Supple without JVD. Lungs: Clear to auscultation throughout. Cardio: Regular rate and rhythm without murmurs, rubs, or gallops. Abdomen: Abdomen is soft, nontender, and nondistended. Normoactive bowel sounds x4 quadrants. Extremities: No cyanosis, clubbing, or edema. Neuro: Strength 5/5 in all extremities. Gait is normal. The patient is alert and oriented x3 and without focal deficits. DISCHARGE PLAN: Diet: Regular unrestricted diet. Activity: The patient may return to normal activity as tolerated. The patient was advised to follow up with his primary care provider this week to discuss this hospitalization and his symptomatology. At this time, there is no further testing to be done in the inpatient setting. It warrants investigation with his primary care provider whether his symptomatology was caused by fluctuation in his metoprolol dosing and whether there needs to be further control of his tachycardia, which is likely secondary to his anxiety, with different psychiatric medications. The patient, as previously mentioned, was provided with 5-day supply of metoprolol succinate 100 mg b.i.d. He was advised to return to the emergency department if he experiences chest pain, difficulty breathing, loss of consciousness, or new or worsening symptoms. Otherwise, he is to return to his normal medications. He was advised to return to the emergency department for new or worsening symptoms, chest pain, difficulty breathing, or loss of consciousness. DISCHARGE MEDICATIONS: Continued home medications: 1. Clonazepam 1 mg p.o. t.i.d. 2. Omeprazole 40 mg p.o. daily. 3. Vitamin B12 one tab p.o. daily. 4. Vitamin D3 one cap p.o. daily. 5. [place]-3 1000 mg p.o. daily. 6. Niacin 500 mg p.o. daily. 7. Gabapentin 400 mg to 800 mg p.o. t.i.d. 8. Venlafaxine 150 mg p.o. daily. 9. Hydroxyzine 25 mg p.o. t.i.d. p.r.n. 10. Metoprolol succinate 100 mg p.o. daily. CONDITION ON DISCHARGE: Stable. DISPOSITION: Home. TIME SPENT: Approximately 40 minutes was spent on this discharge, approximately half of this time was spent at bedside. DORI DAVE [id number]/[facility] #: [id number] MTDD
== END 2018-12-02 18:50 | disposition home or self-care (01) | DRG 312 ==
LOC: ED 07:39 → MED 12:36 → OBSVTOIN 12-02 14:00
PROVIDERS: ADMIT Internal Medicine; ATTEND Internal Medicine
DX: R55 Syncope and collapse (principal); K22.10 Ulcer of esophagus without bleeding; F41.0 Panic disorder [episodic paroxysmal anxiety]; I10 Essential (primary) hypertension; K21.9 Gastro-esophageal reflux disease without esophagitis; F31.9 Bipolar disorder, unspecified; R53.1 Weakness; I34.0 Nonrheumatic mitral (valve) insufficiency; Z82.49 Family history of ischemic heart disease and other diseases of the circulatory system; Z88.0 Allergy status to penicillin; Z87.442 Personal history of urinary calculi
CPT/HCPCS: 36415; 74177; 80053; 80307; 81003; 81015; 82272; 82550; 83605; 83690; 84443; 85025; 85027; 85610; 85730; 86140; 86850; 86900; 86901; 87086; 93005; 93306; 99284; A9270-GY; G0378; J2270; J2405; Q9967

== ENCOUNTER 2020-05-19 02:09 | Inpatient (IN) ==
[2020-05-19] MEDS ORDERED: Pantoprazole VIAL 40 MG VIAL IV ONE (02:30)
[2020-05-19] MEDS ORDERED: NS 0.9% 1000 ml BAG 1,000 ML IV.FLUID IV ONE (02:36)
[2020-05-19 02:59] LABS: ABS Lymphocytes 1.1 10^3/ul (1.0-4.8); ABS Monocytes 0.5 10^3/ul (0-0.8); Hematocrit 36 % (42-52); Hemoglobin 12.2 g/dL (14.0-18.0); Lymphocyte % 12.4 %; Mean Corpuscular HGB Conc 34 g/dL (31-36); Mean Corpuscular Hemoglobin 26 pg (27-31); Mean Corpuscular Volume 76 fL (80-94); Platelet Count 418 10^3/uL (150-450); Red Blood Count 4.76 10^6 /uL (4.18-5.48); Red Cell Distribution Width 18 % (10-15); White Blood Count 8.6 10^3/uL (3.5-10.8)
[2020-05-19 03:07] LABS: Activated Partial Thrombo Time 29.7 seconds (26.0-38.0); INR 1.17 (0.82-1.09)
[2020-05-19 03:14] LABS: ALT 11 U/L (7-52); AST 13 U/L (13-39); Albumin 3.8 g/dL (3.2-5.2); Albumin/Globulin Ratio 1.1 (1-3); Alkaline Phosphatase 89 U/L (34-104); Anion Gap 8 mmol/L (2-11); BUN/Creatinine Ratio 15.5 (8-20); Blood Urea Nitrogen 15 mg/dL (6-24); C Reactive Protein 9.87 mg/L (<8.01); CO2 Carbon Dioxide 27 mmol/L (22-32); Calcium 8.8 mg/dL (8.6-10.3); Chloride 105 mmol/L (101-111); EGFR African American 103.7 (>60); EGFR Non-African American 85.7 (>60); Globulin 3.4 g/dL (2-4); Glucose 135 mg/dL (70-100); Potassium 4.1 mmol/L (3.5-5.0); Sodium 140 mmol/L (135-145); Total Protein 7.2 g/dL (6.4-8.9)
[2020-05-19 03:16] LABS: Troponin I 0.01 ng/mL (<0.03)
[2020-05-19] MEDS ORDERED: metroNIDAZOLE IV 500 MG/100ML 500 MG/100 ML BAG IVPB ONE (03:21)
[2020-05-19] MEDS ORDERED: Cefepime 2 GM in NS 0.9% 50 ML 50 ML IVPB ONE (03:21)
[2020-05-19 03:39] LABS: Influenza A Molecular Negative (Negative); Influenza B Molecular Negative (Negative)
[2020-05-19 03:45] LABS: Alcohol, S < 10 mg/dL (<10)
[2020-05-19] MEDS ORDERED: Cefepime 2 GM IV - ED ONCE IV ONE (03:45)
[2020-05-19] MEDS ORDERED: Vancomycin 1,250 MG in NS 0.9% 250 ml 250 ML IVPB SCH (04:00)
[2020-05-19] MEDS ORDERED: Vancomycin 1,250 MG in NS 0.9% 250 ml 250 ML IVPB ONE (04:00)
[2020-05-19] MEDS ORDERED: Albuterol 2.5mg/3 ml (0.083%) NEB.SOLN INH PRN (04:37)
[2020-05-19] MEDS ORDERED: cefTRIAXone 1 gm/50 mL NS BAG 1 GM/50 ML BAG IVPB SCH (04:38)
[2020-05-19] MEDS ORDERED: NS 0.9% 1000 ml BAG 1,000 ML IV SCH (04:45)
[2020-05-19] MEDS ORDERED: Iohexol 300 (CONTRAST) 10 ML SDV IV ONE (05:06)
[2020-05-19 06:18] LABS: Urine Appearance Cloudy; Urine Bilirubin Negative (Negative); Urine Blood 2+ (Negative); Urine Color Yellow; Urine Glucose Negative (Negative); Urine Ketones Negative (Negative); Urine Nitrite Negative (Negative); Urine Protein Negative (Negative); Urine Specific Gravity 1.014 (1.010-1.030); Urine Urobilinogen Negative (Negative)
[2020-05-19 06:21] LABS: Urine Bacteria 1+ (Absent); Urine Red Blood Cell 2+(6-10/hpf) (Absent); Urine White Blood Cell Trace(0-5/hpf) (Absent)
[2020-05-19 06:25] LABS: EGFR African American 124.2 (>60); EGFR Non-African American 102.6 (>60)
[2020-05-19 06:35] LABS: Urine Benzodiazepine Screen None Detected (None Detect); Urine Cannabinoids Screen None Detected (None Detect); Urine Opiates Screen None Detected (None Detect)
[2020-05-19] MEDS: Heparin 5000 UNITS/ML 1 mL VIAL SUBCUT SCH ×3 (07:20→21:17)
[2020-05-19] MEDS: Lactated Ringers 1000 ml BAG 1,000 ML IV ONE ×2 (07:50→08:36)
[2020-05-19] MEDS ORDERED: Norepinephrine 16MCG/ML IVPRE 4,000 MCG/250 ML BAG IV SCH (08:00)
[2020-05-19] MEDS: Azithromycin 500 mg/250 ml NS 500 MG/250 ML BAG IVPB SCH (09:13)
[2020-05-19] MEDS: Lactated Ringers 1000 ml BAG 1,000 ML IV SCH ×2 (09:18→20:02)
[2020-05-19] MEDS: cefTRIAXone 1 gm/50 mL NS BAG 1 GM/50 ML BAG IVPB SCH (12:20)
[2020-05-19] MEDS ORDERED: metroNIDAZOLE IV 500 MG/100ML 500 MG/100 ML BAG IVPB SCH (13:00)
[2020-05-19] MEDS: Pantoprazole VIAL 40 MG VIAL IV SCH (16:25)
[2020-05-19 20:38] LABS: Hematocrit 24 % (42-52); Hemoglobin 8.2 g/dL (14.0-18.0)
[2020-05-20 01:20] LABS: Hematocrit 24 % (42-52)
[2020-05-20] MEDS: Lactated Ringers 1000 ml BAG 1,000 ML IV SCH ×2 (03:25→14:39)
[2020-05-20] MEDS: Pantoprazole VIAL 40 MG VIAL IV SCH ×2 (04:29→16:34)
[2020-05-20 04:43] LABS: ABS Monocytes 0.6 10^3/ul (0-0.8); ABS Neutrophils 8.7 10^3/ul (1.5-7.7); Hematocrit 23 % (42-52); Hemoglobin 7.8 g/dL (14.0-18.0); Lymphocyte % 9.7 %; Mean Corpuscular HGB Conc 34 g/dL (31-36); Mean Corpuscular Hemoglobin 26 pg (27-31); Mean Corpuscular Volume 76 fL (80-94); Mean Platelet Volume 7.7 fL (7.4-10.4); Platelet Count 235 10^3/uL (150-450); Red Blood Count 3.07 10^6 /uL (4.18-5.48); Red Cell Distribution Width 18 % (10-15); White Blood Count 10.3 10^3/uL (3.5-10.8)
[2020-05-20 04:57] LABS: INR 1.35 (0.82-1.09)
[2020-05-20 04:59] LABS: BUN/Creatinine Ratio 25.9 (8-20); Calcium 8.5 mg/dL (8.6-10.3); EGFR African American 187.8 (>60); EGFR Non-African American 155.2 (>60); Potassium 3.6 mmol/L (3.5-5.0)
[2020-05-20] MEDS: Heparin 5000 UNITS/ML 1 mL VIAL SUBCUT SCH ×3 (06:34→21:11)
[2020-05-20] MEDS: Azithromycin 500 mg/250 ml NS 500 MG/250 ML BAG IVPB SCH (08:14)
[2020-05-20 09:25] LABS: HDL Cholesterol 27.8 mg/dL
[2020-05-20] MEDS: cefTRIAXone 1 gm/50 mL NS BAG 1 GM/50 ML BAG IVPB SCH (12:16)
[2020-05-20 12:45] LABS: Hematocrit 21 % (42-52); Hemoglobin 7.1 g/dL (14.0-18.0)
[2020-05-20 14:10] LABS: Urine Appearance Clear; Urine Bilirubin Negative (Negative); Urine Blood 3+ (Negative); Urine Color Straw; Urine Glucose Negative (Negative); Urine Ketones Negative (Negative); Urine Nitrite Negative (Negative); Urine Protein Negative (Negative); Urine Specific Gravity 1.005 (1.010-1.030); Urine Urobilinogen Negative (Negative)
[2020-05-20 14:15] LABS: Urine Bacteria Absent (Absent); Urine Red Blood Cell 1+(3-5/hpf) (Absent); Urine White Blood Cell Trace(0-5/hpf) (Absent)
[2020-05-20] MEDS ORDERED: fentaNYL 100 mcg/2 ml 50 MCG/ML VIAL ONE (14:50)
[2020-05-20] MEDS ORDERED: Midazolam 10 mg/10 ml VIAL 1 mg/ml 10 ml VIAL (10 mg) ONE ×2 (14:50→15:45)
[2020-05-20] MEDS ORDERED: Lidocaine 2% PF 5 ML VIAL INH ONE (15:06)
[2020-05-20] MEDS ORDERED: fentaNYL 100 mcg/2 ml 50 MCG/ML VIAL IV SLOW PU PRN (15:07)
[2020-05-20] MEDS ORDERED: Midazolam 10 mg/10 ml VIAL 1 mg/ml 10 ml VIAL (10 mg) IV SLOW PU ONE (15:07)
[2020-05-20] MEDS ORDERED: Lidocaine 2% PF 5 ML VIAL ONE (15:20)
[2020-05-20] MEDS ORDERED: fentaNYL 250 mcg/5 ml 50 MCG/ML 5 ml VIAL (250 MCG) ONE (15:45)
[2020-05-20] MEDS ORDERED: fentaNYL 100 mcg/2 ml 50 MCG/ML VIAL IV SLOW PU ONE (16:49)
[2020-05-20 18:08] LABS: Hematocrit 21 % (42-52)
[2020-05-20 23:34] LABS: Hematocrit 22 % (42-52); Hemoglobin 7.4 g/dL (14.0-18.0)
[2020-05-21] MEDS: Lactated Ringers 1000 ml BAG 1,000 ML IV SCH (04:02)
[2020-05-21 04:16] LABS: Hematocrit 22 % (42-52); Hemoglobin 7.2 g/dL (14.0-18.0); Mean Corpuscular HGB Conc 33 g/dL (31-36); Mean Corpuscular Hemoglobin 25 pg (27-31); Mean Corpuscular Volume 77 fL (80-94); Mean Platelet Volume 7.9 fL (7.4-10.4); Platelet Count 201 10^3/uL (150-450); Red Blood Count 2.88 10^6 /uL (4.18-5.48); Red Cell Distribution Width 18 % (10-15); White Blood Count 6.8 10^3/uL (3.5-10.8)
[2020-05-21 04:32] LABS: BUN/Creatinine Ratio 19.7 (8-20); Calcium 8.5 mg/dL (8.6-10.3); EGFR African American 161.8 (>60); EGFR Non-African American 133.7 (>60); Potassium 2.9 mmol/L (3.5-5.0)
[2020-05-21] MEDS ORDERED: Potassium Chlor 20 meq TAB.ER PO ONE (04:52)
[2020-05-21] MEDS: Pantoprazole VIAL 40 MG VIAL IV SCH ×2 (05:08→17:39)
[2020-05-21] MEDS: Heparin 5000 UNITS/ML 1 mL VIAL SUBCUT SCH (05:08)
[2020-05-21] MEDS ORDERED: KCL 20 MEQ/100 ML IVPREMIX 20 MEQ/100 ML BAG IV ONE (07:48)
[2020-05-21] MEDS ORDERED: Potassium Chloride LIQUID 20 MEQ/15 ML LIQUID PO ONE (08:27)
[2020-05-21] MEDS: KCL 20 MEQ/100 ML IVPREMIX 20 MEQ/100 ML BAG IV SCH ×2 (08:47→11:18)
[2020-05-21] MEDS: Potassium Chlor 20 meq TAB.ER PO SCH ×2 (08:48→21:21)
[2020-05-21] MEDS: Azithromycin 500 mg/250 ml NS 500 MG/250 ML BAG IVPB SCH (08:59)
[2020-05-21] MEDS: cefTRIAXone 1 gm/50 mL NS BAG 1 GM/50 ML BAG IVPB SCH (12:31)
[2020-05-21 13:34] LABS: Hematocrit 22 % (42-52); Hemoglobin 7.3 g/dL (14.0-18.0)
[2020-05-22 04:59] LABS: Hematocrit 22 % (42-52); Hemoglobin 7.4 g/dL (14.0-18.0); Mean Corpuscular HGB Conc 33 g/dL (31-36); Mean Corpuscular Hemoglobin 26 pg (27-31); Mean Corpuscular Volume 77 fL (80-94); Mean Platelet Volume 7.5 fL (7.4-10.4); Platelet Count 228 10^3/uL (150-450); Red Blood Count 2.92 10^6 /uL (4.18-5.48); Red Cell Distribution Width 18 % (10-15); White Blood Count 5.2 10^3/uL (3.5-10.8)
[2020-05-22] MEDS: Pantoprazole VIAL 40 MG VIAL IV SCH ×2 (05:03→16:24)
[2020-05-22 05:18] LABS: Anion Gap 4 mmol/L (2-11); BUN/Creatinine Ratio 12.7 (8-20); Blood Urea Nitrogen 7 mg/dL (6-24); CO2 Carbon Dioxide 28 mmol/L (22-32); Calcium 8.3 mg/dL (8.6-10.3); Chloride 108 mmol/L (101-111); EGFR African American 199.6 (>60); Glucose 80 mg/dL (70-100); Potassium 3.9 mmol/L (3.5-5.0); Sodium 140 mmol/L (135-145)
[2020-05-22 05:49] LABS: Total Iron Binding Capacity 300 mcg/dL (250-450); Transferrin 214 mg/dL (203-362)
[2020-05-22 05:51] LABS: % Iron Saturation 7 % (15-55); Iron < 20 ug/dL (50-212); Unsaturated Iron Binding < 285 ug/dL
[2020-05-22 06:09] LABS: Ferritin 16.6 ng/mL (24-336)
[2020-05-22] MEDS: Lactated Ringers 1000 ml BAG 1,000 ML IV SCH (07:16)
[2020-05-22] MEDS: Azithromycin 500 mg/250 ml NS 500 MG/250 ML BAG IVPB SCH (08:05)
[2020-05-22] MEDS: Iron Sucrose 200 MG in NS 0.9% 100 ml BAG 100 ML IVPB SCH (09:34)
[2020-05-22] MEDS: cefTRIAXone 1 gm/50 mL NS BAG 1 GM/50 ML BAG IVPB SCH (11:57)
[2020-05-23] MEDS: Pantoprazole VIAL 40 MG VIAL IV SCH ×2 (06:00→15:20)
[2020-05-23 09:00] LABS: Hematocrit 27 % (42-52); Mean Corpuscular HGB Conc 34 g/dL (31-36); Mean Corpuscular Hemoglobin 26 pg (27-31); Mean Corpuscular Volume 76 fL (80-94); Mean Platelet Volume 7.1 fL (7.4-10.4); Platelet Count 280 10^3/uL (150-450); Red Blood Count 3.51 10^6 /uL (4.18-5.48); Red Cell Distribution Width 18 % (10-15); White Blood Count 6.3 10^3/uL (3.5-10.8)
[2020-05-23 09:15] LABS: BUN/Creatinine Ratio 9.5 (8-20); Calcium 8.9 mg/dL (8.6-10.3); EGFR African American 170.7 (>60); EGFR Non-African American 141.1 (>60); Potassium 3.4 mmol/L (3.5-5.0)
[2020-05-23 09:40] LABS: ABS Eosinophils 0.2 10^3/ul (0-0.6); ABS Lymphocytes 1.5 10^3/ul (1.0-4.8); ABS Monocytes 0.5 10^3/ul (0-0.8); Lymphocyte % 24.5 %
[2020-05-23] MEDS: Iron Sucrose 200 MG in NS 0.9% 100 ml BAG 100 ML IVPB SCH (09:57)
[2020-05-23] MEDS: Azithromycin 500 mg/250 ml NS 500 MG/250 ML BAG IVPB SCH (09:57)
[2020-05-23] MEDS ORDERED: Magnesium Sulfate IV 3 GM in NS 0.9% 100 ml BAG 100 ML IVPB ONE (10:57)
[2020-05-23] MEDS ORDERED: Potassium Chlor 20 meq TAB.ER PO ONE (10:57)
[2020-05-23] MEDS: cefTRIAXone 1 gm/50 mL NS BAG 1 GM/50 ML BAG IVPB SCH (12:10)
[2020-05-23 12:49] VITALS: BP 114/70
== END 2020-05-23 15:50 | disposition home or self-care (01) | DRG 871 ==
LOC: ED 02:09 → ICU 04:28 → MED 05-22 11:45
PROVIDERS: ADMIT Internal Medicine; ATTEND Internal Medicine